=== PATIENT | female | born 1935 | race Caucasian/White ===

== ENCOUNTER 2021-03-04 12:11 | Inpatient (IN) ==
[2021-03-04] MEDS ORDERED: ONDANSETRON 4 MG/2 ML VIAL IV ONE (12:52)
--- NOTE | 2021-03-04 12:55 | Emergency Department Note ---
Fall HPI General Chief Complaint: Fall Stated Complaint: fall Time Seen by Provider: 03/04/21 12:49 Source: patient, EMS, RN notes reviewed and old records reviewed Mode of arrival: EMS Limitations: no limitations History of Present Illness HPI Narrative: Narrative: 85-year-old female describes a mechanical fall onto right hip prior to arrival initially was able to bear weight but now increasing increasing pain and inability to bear weight. She denies any loss of consciousness denies any headache denies any neck injury denies any chest pain denies any shortness of breath denies any abdominal pain denies loss of bowel or bladder control. MD Complaint: fall Onset (ago): hour(s) Fall From: standing Fall Witnessed: no Place Fall Occurred: other Loss of Consciousness: none Prolonged Down Time?: no Symptoms Prior to Fall: none Location of injury - extremities: Right: thigh (Hip) Severity: moderate Quality: aching Associated symptoms (after fall): Reports unable to walk; Denies headache, neck pain, numbness, weakness, chest pain, shortness of breath, abdominal pain, hematuria, lightheaded, vertigo and confusion Related Data Home Medications Medication Instructions Recorded Confirmed aspirin 81 mg PO DAILY 10/07/15 02/16/21 ergocalciferol (vitamin D2) 400 unit PO DAILY 10/07/15 02/16/21 omega-3 fatty acids-fish oil 1,000 mg PO DAILY 10/07/15 02/16/21 omeprazole 20 mg PO BIDAC 10/07/15 02/16/21 cyanocobalamin (vitamin B-12) 2,500 mg PO QDAY 11/12/18 02/01/21 melatonin 3 mg tablet 3 mg PO HS PRN 11/12/18 02/16/21 furosemide 40 mg tablet 20 mg PO QAM tab 11/05/20 02/16/21 magnesium sulfate 100 mg capsule 100 mg PO QDAY 02/01/21 02/16/21 Previous Rx's Medication Instructions Recorded albuterol sulfate 90 mcg/actuation 2 puff INHALATION Q6H PRN #18 g 09/12/19 aerosol inhaler atenolol 50 mg tablet 50 mg PO DAILY #90 tab 08/17/20 fexofenadine 180 mg tablet 180 mg PO Q24H #30 tab 09/14/20 pregabalin 50 mg capsule 50 mg PO QDAY #30 cap 10/27/20 gemfibrozil 600 mg tablet 600 mg PO BID #180 tab 11/08/20 levothyroxine 50 mcg tablet 50 mcg PO QDAY #90 tab 11/08/20 meclizine 12.5 mg tablet 12.5 mg PO BID #60 tab 11/30/20 meloxicam 7.5 mg tablet 7.5 mg PO QDAY #180 tab 12/07/20 clopidogrel 75 mg tablet 75 mg PO DAILY #30 tab 02/01/21 hydroxyzine HCl 25 mg tablet 25 mg PO QHS #30 tab 02/18/21 ferrous sulfate 325 mg (65 mg 325 mg PO BID #60 tab 02/23/21 iron) tablet potassium chloride 20 mEq 20 meq PO QDAY #90 tab 02/23/21 tablet,extended release tramadol 50 mg tablet See Rx Instructions .ROUTE 02/23/21 .COMPLEX #180 tab Allergies Allergy/AdvReac Type Severity Reaction Status Date / Time garlic AdvReac Intermediate Unknown Verified 03/04/21 12:17 fabric 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 [facility] Narrative Patient History Narrative: Narrative: Medical/Surgical/Family History All Active Problems (Updated 03/04/21 @ 13:49 by Donavan Dela Cruz MD) Closed hip fracture (Acute) Anemia due to stage 3b chronic kidney disease (Acute) Localized edema due to fluid overload (Chronic) Chronic kidney disease (CKD) stage G3b/A1, moderately decreased glomerular filtration rate (GFR) between 30-44 mL/min/1.73 square meter and albuminuria creatinine ratio less than 30 mg/g (Chronic) Renal insufficiency (Acute) Back pain (Chronic) DMII (diabetes mellitus, type 2) (Chronic) Hypertension, essential (Chronic) Malignant melanoma (Chronic) PVD (peripheral vascular disease) (Chronic) Renal calculi (Chronic 06/26/14) Tachycardia (Chronic) Urethral caruncle (Chronic) Urge incontinence (Chronic 06/11/14) Urinary frequency (Chronic 06/11/14) History of UTI (Chronic) Arthritis (Chronic) Muscle pain (Chronic) Hyperlipidemia (Chronic) Insomnia (Chronic) Joint pain (Chronic) History of tobacco use (Chronic) Acute gastritis without bleeding (Chronic) GERD (gastroesophageal reflux disease) (Chronic) Incomplete emptying of bladder (Chronic) Cardiac murmur (Chronic) Hypertriglyceridemia (Chronic) Abnormal abdominal ultrasound (Chronic) COPD (chronic obstructive pulmonary disease) (Chronic) Bipolar 1 disorder (Chronic) Carotid artery stenosis (Chronic) COPD exacerbation (Acute) BMI 27.0-27.9,adult (Chronic) Diabetic neuropathy (Chronic) Diabetic foot ulcer (Chronic) SOB (shortness of breath) (Chronic) Pneumonia (Chronic) Dysuria (Chronic) Cough (Chronic) Anemia, iron deficiency (Chronic) Dizziness (Chronic) UTI (urinary tract infection) (Chronic) Dysphagia (Chronic) Plantar fasciitis, bilateral (Chronic) Hypomagnesemia (Chronic) Hypokalemia (Chronic) Encounter for therapeutic drug level monitoring (Chronic) Indigestion (Chronic) Allergies (Chronic) Diabetic eye exam (Chronic 11/30/17) Diarrhea (Acute) Pedal edema (Acute) History of surgery (Chronic) Low back pain (Chronic) Bilateral ankle pain (Chronic) Diabetes (Chronic) Hypertension (Chronic) Hypothyroidism (Chronic) Hypomagnesemia (Acute) Hematoma (Acute) Mobility impaired (Acute) Allergies (Acute) Anemia (Acute) Vertigo (Acute) Medical History (Updated 03/04/21 @ 13:49 by Donavan Dela Cruz MD) Abnormal abdominal ultrasound Allergies Anemia, iron deficiency Anemia, iron deficiency Arthritis Back pain Bilateral ankle pain Bipolar 1 disorder BMI 27.0-27.9,adult Cardiac murmur Carotid artery stenosis Angiography by Dr. 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 Diabetic foot ulcer Diabetic neuropathy Dizziness Dizziness DMII (diabetes mellitus, type 2) Controlled w/ neurologic complications Dysphagia Dysphagia Dysuria (06/11/14) Dysuria Encounter for therapeutic drug level monitoring GERD (gastroesophageal reflux disease) Gross hematuria (06/11/14) Hematuria History of tobacco use History of UTI Hyperlipidemia Hypertension Hypertension, essential Hypertriglyceridemia Hypokalemia Hypokalemia Hypomagnesemia Hypomagnesemia Hypothyroidism Incomplete emptying of bladder Indigestion Insomnia Joint pain Low back pain Malignant melanoma Muscle pain Pelvic pain Plantar fasciitis, bilateral Plantar fasciitis, bilateral Pneumonia Pneumonia PVD (peripheral vascular disease) Renal calculi (06/26/14) Right middle lobe pneumonia SOB (shortness of breath) SOB (shortness of breath) Tachycardia Urethral caruncle Urge incontinence (06/11/14) Urinary frequency (06/11/14) UTI (urinary tract infection) UTI (urinary tract infection) Vertigo Surgical History H/O colonoscopy (~2010) Dr. 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 Dr Dowell- zack and toenail removed History of cholecystectomy (04/08/13) History of open reduction and internal fixation (ORIF) procedure (2014) Arm fracture History of surgery Caudal NAT #2 w/o sed Caudal NAT w/o sed Caudal NAT w/o sed Caudal NAT #1 w/o sed Hx of appendectomy (~1949) Family History Unknown Arthritis Sister , at age 58 Breast cancer Family/Other Cancer Uncles-2 Family/Other Cancer Aunt Mother , 71 years Diabetes Hypertension, essential Heart attack Father , 72 years Cancer Stomach cancer Brother H/O heart bypass surgery Social History Smoking Status: Former smoker Alcohol Intake Frequency: a few times a week Substance Use: does not use Exam Narrative Narrative: Narrative: General Limitations: no limitations General appearance: Present alert and in distress Head Head: Present atraumatic, normocephalic and normal inspection Eye Eye: Present normal appearance, PERRL and EOMI ENT ENT: Present normal exam, mucous membranes moist and normal external ear exam Neck Neck: Present normal inspection, full ROM and trachea midline; Absent tenderness, meningismus and lymphadenopathy Chest Chest: Present normal inspection; Absent tenderness Respiratory Respiratory: Present normal lung sounds bilaterally; Absent respiratory distress Cardiovascular Cardiovascular: Present regular rate and normal rhythm; Absent systolic murmur Adbominal Abdominal: Present soft and normal bowel sounds; Absent distention, tenderness, guarding, rebound and rigidity Extremities Extremities: Present tenderness, normal capillary refill and other (Right hip is tender to palpation tender with range of motion distal neurovascular); Absent full ROM, pedal edema and pretibial edema Back Back: Present normal inspection and full ROM; Absent CVA tenderness (R) and CVA tenderness (L) Neurological Neurological: Present alert and oriented X3 Psychiatric Psychiatric: Present normal affect and normal mood Skin Skin: Present warm (WNL); Absent rash Course Vital Signs Vital signs: Vital Signs Temperature 97.8 F 03/04/21 12:12 Pulse Rate 68 03/04/21 12:12 Respiratory Rate 18 03/04/21 12:12 Blood Pressure 168/75 03/04/21 12:12 Pulse Oximetry (%) 90 03/04/21 12:12 Temperature 97.8 F 03/04/21 12:12 Pulse Rate 75 03/04/21 13:54 Respiratory Rate 18 03/04/21 12:12 Blood Pressure 184/78 03/04/21 13:54 Pulse Oximetry (%) 95 03/04/21 13:54 MDM MDM Narrative Medical decision making narrative: Narrative: X-ray reveals a right femoral neck fracture I discussed patient Dr. Huber who graciously agreed to evaluate patient in the emergency department and requested hospitalist admit patient. Differential Diagnosis Differential Diagnosis: Fracture dislocation sprain strain contusion Medical Records Medical records reviewed: Yes I reviewed the patient's medical records. Radiology Data Radiology results reviewed: Yes I reviewed the patient's radiology results. Radiology results narrative: Right comminuted femoral neck fracture EKG Data EKG #1: EKG attestation: Yes I reviewed and interpreted this EKG. and Yes There are no EKG findings of acute coronary syndrome EKG shows normal: sinus rhythm Rate: normal (77) Rhythm: NSR [place]/QRS: normal Heart block present: None ST segment elevation in: None ST segment depression in: None Q waves: None T wave inversions noted in: None Hyperacute T waves: None QTc: normal QRS morphology: Present normal Interpretation: normal EKG Pulse Oximetry Data Pulse Ox %: 95 Interpretation: 95% on room air is within normal limits. Discharge Plan Patient/Caregiver Discharge Instructions Pt seen by SALES SERVICE PROFESSIONAL/PA only: No Clinical Impression: Closed hip fracture Qualifiers: Encounter type: initial encounter Laterality: right Qualified Code(s): S72.001A - Fracture of unspecified part of neck of right femur, initial encounter for closed fracture Patient Disposition: Home, Self-Care Follow up with: Winsome Cordova ARNP [Primary Care Provider] - Prescriptions: No Action albuterol sulfate [ProAir HFA] 90 mcg/actuation HFA aerosol inhaler 2 puff INHALATION Q6H PRN (Reason: Dyspnea) Qty: 18 RF: 0 atenolol 50 mg tablet 50 mg PO DAILY Qty: 90 RF: 2 pregabalin 50 mg capsule 50 mg PO QDAY Qty: 30 RF: 2 furosemide [Lasix] 40 mg tablet 20 mg PO QAM RF: 0 gemfibrozil 600 mg tablet 600 mg PO BID Qty: 180 RF: 1 levothyroxine 50 mcg tablet 50 mcg PO QDAY Qty: 90 RF: 1 meloxicam 7.5 mg tablet 7.5 mg PO QDAY Qty: 180 RF: 2 clopidogrel 75 mg tablet 75 mg PO DAILY Qty: 30 RF: 2 hydroxyzine HCl 25 mg tablet 25 mg PO QHS Qty: 30 RF: 1 ferrous sulfate 325 mg (65 mg iron) tablet 325 mg PO BID Qty: 60 RF: 3 potassium chloride 20 mEq tablet extended release 20 meq PO QDAY Qty: 90 RF: 2 tramadol 50 mg tablet See Rx Instructions .ROUTE .COMPLEX Qty: 180 RF: 0 cyanocobalamin (vitamin B-12) 2,500 mg PO QDAY RF: 0 magnesium sulfate 100 mg capsule 100 mg PO QDAY RF: 0 melatonin 3 mg tablet 3 mg PO HS PRN (Reason: Sleep) RF: 0 fexofenadine [Chitra Allergy] 180 mg tablet 180 mg PO Q24H Qty: 30 RF: 4 meclizine 12.5 mg tablet 12.5 mg PO BID Qty: 60 RF: 1 ergocalciferol (vitamin D2) 400 UNIT tablet 400 unit PO DAILY RF: 0 omeprazole 20 MG capsule 20 mg PO BIDAC RF: 0 aspirin 81 MG tablet,chewable 81 mg PO DAILY RF: 0 omega-3 fatty acids-fish oil 1 EACH capsule 1,000 mg PO DAILY RF: 0
[2021-03-04] MEDS: morphine 2 MG/ML VIAL IV PRN ×2 (13:05→14:21)
--- NOTE | 2021-03-04 14:12 | XRay Report ---
CLINICAL INFORMATION: FALL COMPARISON: 09/14/2020 FINDINGS: A comminuted fracture involving the entire right femoral neck appreciated this includes both the basicervical and subcapital region. The distal fragment is displaced one half shaft width anteriorly and mild angulation deformity. Mild degenerative change right hip. Moderate degenerative change left hip. Severe L5-S1 degenerative disc disease noted. IMPRESSION: Right hip fracture with mild angulation and impaction Interpreted and Authenticated by: Raymundo Rolle 03/04/21
--- NOTE | 2021-03-04 14:13 | XRay Report ---
CLINICAL INFORMATION: hip fracture COMPARISON: 02/03/2020 FINDINGS: Mild cardiomegaly is unchanged. Slight diffuse thoracic aortic ectasia stable. The remaining mediastinum and pulmonary vessels are normal. Lungs are clear. No effusions. IMPRESSION: Mild stable cardiomegaly and right thoracic aortic ectasia-both stable. No acute disease Interpreted and Authenticated by: Raymundo Rolle 03/04/21
[2021-03-04 15:13] LABS: Basophils # (Auto) 0.03 K/mcL (0.00-0.30); Basophils % (Auto) 0.3 % (0.0-2.0); Eosinophils # (Auto) 0.08 K/mcL (0.00-0.70); Eosinophils % (Auto) 0.8 % (0.0-7.0); Hematocrit 32.6 % (34.1-44.9); Hemoglobin 10.1 g/dL (11.2-15.7); Lymphocytes # (Auto) 0.58 K/mcL (1.50-4.80); Lymphocytes % (Auto) 5.9 % (15.5-49.0); Mean Cell Volume 104.5 fL (80.0-100.0); Mean Platelet Volume 12.6 fL (7.4-10.4); Monocytes # (Auto) 0.19 K/mcL (0.10-0.90); Monocytes % (Auto) 1.9 % (1.0-12.0); Neutrophils % (Auto) 91.1 % (38.0-78.0); Platelet Count 191 K/mcL (140-440); RBC 3.12 M/mcL (3.59-5.38); Red Cell Distribution Width 13.4 % (11.5-14.5); WBC 9.8 K/mcL (4.5-11.0)
[2021-03-04 15:39] LABS: ALT/SGPT 10 U/L (<40); AST/SGOT 16 U/L (<32); Albumin 3.3 gm/dL (3.2-5.2); Albumin/Globulin Ratio 1.1 (1.0-2.3); Alkaline Phosphatase 141 U/L (39-117); Bilirubin,Total 0.3 mg/dL (0.1-1.0); Blood Urea Nitrogen 24 mg/dL (8-23); Calcium 8.1 mg/dL (8.6-10.4); Carbon Dioxide 26 mmol/L (22-30); Chloride 109 mmol/L (96-108); Globulin 3.1 gm/dL (2.2-3.7); Glomerular Filtration Rate 37; Glucose 220 mg/dL (70-105)
--- NOTE | 2021-03-04 15:54 | Internal Med History&Physical ---
HPI History of Present Illness Patient information: Note initiated : 03/04/21 at 3:41 pm Service Date, if different from initiated Date: [] Patient: Corinne Crawford a 85 y/o F admitted on for fall. Chief Complaint: [] History of present illness: Ms. Crawford is a 85 year old F history of type 2 diabetes mellitus, essential hypertension, mixed dyslipidemia, COPD, presenting with fall with resultant right hip fractures. There was no prior similar episode. Today when she was waiting to be picked up by family, she lost her balance with her cane and fell with landing on her right body. She did not pass out, no loss of consciousness, no chest pain or palpitations, no shortness of breath. No confusion after the fall. EMS was called to send patients to our ED for further evaluations. Patient is currently committing of 9 of 10, sharp, constant pain localized in her right lateral hip. Hip x-ray showed right hip fracture with mild angulation and impaction. Constitutional Constitutional: Absent chills, excessive sweating, fatigue, fever(s) and weakness EENT Eyes: Absent blurry vision, change in vision, loss of vision and other visual disturbances Ears: Absent decreased hearing and tinnitus Nose, mouth and throat: Absent abnormal hearing, dry mouth, headache(s), nasal congestion and sore throat Cardiovascular Cardiovascular: Absent chest pain, chest pain at rest, edema, irregular heart rhythm and palpatations Respiratory Respiratory: Absent cough, dyspnea and wheezing Gastrointestinal Gastrointestinal: Absent abdominal pain, constipation, diarrhea, nausea and vomiting Musculoskeletal Musculoskeletal: Absent back pain, deformity, limited range of motion, muscle cramps, muscle weakness and numbness Additional comments: right lateral hip pain Integumentary Integumentary: Absent lesions, rash and wounds Neurological Neurological: Absent focal weakness, headache(s) and numbness Psychiatric Psychiatric: Absent anxiety, depression and hallucinations PFSH PFSH All Active Problems (Updated 03/04/21 @ 15:56 by Wilfrido Mims MD) Anemia, hyperchromic (Acute) Closed hip fracture (Acute) Anemia due to stage 3b chronic kidney disease (Acute) Localized edema due to fluid overload (Chronic) Chronic kidney disease (CKD) stage G3b/A1, moderately decreased glomerular filtration rate (GFR) between 30-44 mL/min/1.73 square meter and albuminuria creatinine ratio less than 30 mg/g (Chronic) Renal insufficiency (Acute) Back pain (Chronic) DMII (diabetes mellitus, type 2) (Chronic) Hypertension, essential (Chronic) Malignant melanoma (Chronic) PVD (peripheral vascular disease) (Chronic) Renal calculi (Chronic 06/26/14) Tachycardia (Chronic) Urethral caruncle (Chronic) Urge incontinence (Chronic 06/11/14) Urinary frequency (Chronic 06/11/14) History of UTI (Chronic) Arthritis (Chronic) Muscle pain (Chronic) Hyperlipidemia (Chronic) Insomnia (Chronic) Joint pain (Chronic) History of tobacco use (Chronic) Acute gastritis without bleeding (Chronic) GERD (gastroesophageal reflux disease) (Chronic) Incomplete emptying of bladder (Chronic) Cardiac murmur (Chronic) Hypertriglyceridemia (Chronic) Abnormal abdominal ultrasound (Chronic) COPD (chronic obstructive pulmonary disease) (Chronic) Bipolar 1 disorder (Chronic) Carotid artery stenosis (Chronic) COPD exacerbation (Acute) BMI 27.0-27.9,adult (Chronic) Diabetic neuropathy (Chronic) Diabetic foot ulcer (Chronic) SOB (shortness of breath) (Chronic) Pneumonia (Chronic) Dysuria (Chronic) Cough (Chronic) Anemia, iron deficiency (Chronic) Dizziness (Chronic) UTI (urinary tract infection) (Chronic) Dysphagia (Chronic) Plantar fasciitis, bilateral (Chronic) Hypomagnesemia (Chronic) Hypokalemia (Chronic) Encounter for therapeutic drug level monitoring (Chronic) Indigestion (Chronic) Allergies (Chronic) Diabetic eye exam (Chronic 11/30/17) Diarrhea (Acute) Pedal edema (Acute) History of surgery (Chronic) Low back pain (Chronic) Bilateral ankle pain (Chronic) Diabetes (Chronic) Hypertension (Chronic) Hypothyroidism (Chronic) Hypomagnesemia (Acute) Hematoma (Acute) Mobility impaired (Acute) Allergies (Acute) Anemia (Acute) Vertigo (Acute) Medical History (Updated 03/04/21 @ 15:56 by Wilfrido Mims MD) Abnormal abdominal ultrasound Allergies Anemia, iron deficiency Anemia, iron deficiency Arthritis Back pain Bilateral ankle pain Bipolar 1 disorder BMI 27.0-27.9,adult Cardiac murmur Carotid artery stenosis Angiography by Dr. Mckeon 2018 COPD (chronic obstructive pulmonary disease) COPD exacerbation Cough Cough Daytime sleepiness Diabetes Diabetic eye exam (11/30/17) Eye Case Therapist- no retinopathy Diabetic foot ulcer Diabetic neuropathy Dizziness Dizziness DMII (diabetes mellitus, type 2) Controlled w/ neurologic complications Dysphagia Dysphagia Dysuria (06/11/14) Dysuria Encounter for therapeutic drug level monitoring GERD (gastroesophageal reflux disease) Gross hematuria (06/11/14) Hematuria History of tobacco use History of UTI Hyperlipidemia Hypertension Hypertension, essential Hypertriglyceridemia Hypokalemia Hypokalemia Hypomagnesemia Hypomagnesemia Hypothyroidism Incomplete emptying of bladder Indigestion Insomnia Joint pain Low back pain Malignant melanoma Muscle pain Pelvic pain Plantar fasciitis, bilateral Plantar fasciitis, bilateral Pneumonia Pneumonia PVD (peripheral vascular disease) Renal calculi (06/26/14) Right middle lobe pneumonia SOB (shortness of breath) SOB (shortness of breath) Tachycardia Urethral caruncle Urge incontinence (06/11/14) Urinary frequency (06/11/14) UTI (urinary tract infection) UTI (urinary tract infection) Vertigo Surgical History H/O colonoscopy (~2010) Dr. 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 Manager Dr Dowell- zack and toenail removed History of cholecystectomy (04/08/13) History of open reduction and internal fixation (ORIF) procedure (2014) Arm fracture History of surgery Caudal NAT #2 w/o sed Caudal NAT w/o sed Caudal NAT w/o sed Caudal NAT #1 w/o sed Hx of appendectomy (~194) Family History Unknown Arthritis Sister , at age 58 Breast cancer Family/Other Cancer Uncles-2 Family/Other Cancer Aunt Mother , 71 years Diabetes Hypertension, essential Heart attack Father , 72 years Cancer Stomach cancer Brother H/O heart bypass surgery Social History marital status: other: Children-3 smoking status start date: 06/25/73 alcohol intake frequency: a few times a week substance use type: does not use MEDS/ALLERGIES Home Medications and Allergies Home Medications Medication Instructions Recorded Confirmed Type aspirin 81 mg PO DAILY 10/07/15 02/16/21 History ergocalciferol (vitamin D2) 400 unit PO DAILY 10/07/15 02/16/21 History omega-3 fatty acids-fish oil 1,000 mg PO DAILY 10/07/15 02/16/21 History omeprazole 20 mg PO BIDAC 10/07/15 02/16/21 History cyanocobalamin (vitamin B-12) 2,500 mg PO QDAY 11/12/18 02/01/21 History melatonin 3 mg tablet 3 mg PO HS PRN 11/12/18 02/16/21 History albuterol sulfate 90 mcg/actuation 2 puff INHALATION Q6H PRN #18 g 09/12/19 02/16/21 Rx aerosol inhaler atenolol 50 mg tablet 50 mg PO DAILY #90 tab 08/17/20 02/16/21 Rx fexofenadine 180 mg tablet 180 mg PO Q24H #30 tab 09/14/20 02/16/21 Rx pregabalin 50 mg capsule 50 mg PO QDAY #30 cap 10/27/20 02/16/21 Rx furosemide 40 mg tablet 20 mg PO QAM tab 11/05/20 02/16/21 History gemfibrozil 600 mg tablet 600 mg PO BID #180 tab 11/08/20 02/16/21 Rx levothyroxine 50 mcg tablet 50 mcg PO QDAY #90 tab 11/08/20 02/16/21 Rx meclizine 12.5 mg tablet 12.5 mg PO BID #60 tab 11/30/20 02/16/21 Rx meloxicam 7.5 mg tablet 7.5 mg PO QDAY #180 tab 12/07/20 02/16/21 Rx clopidogrel 75 mg tablet 75 mg PO DAILY #30 tab 02/01/21 02/16/21 Rx magnesium sulfate 100 mg capsule 100 mg PO QDAY 02/01/21 02/16/21 History hydroxyzine HCl 25 mg tablet 25 mg PO QHS #30 tab 02/18/21 Rx ferrous sulfate 325 mg (65 mg 325 mg PO BID #60 tab 02/23/21 Rx iron) tablet potassium chloride 20 mEq 20 meq PO QDAY #90 tab 02/23/21 Rx tablet,extended release tramadol 50 mg tablet See Rx Instructions .ROUTE 02/23/21 Rx .COMPLEX #180 tab Allergies Allergy/AdvReac Type Severity Reaction Status Date / Time garlic AdvReac Intermediate Unknown Verified 03/04/21 12:17 fabric softner AdvReac Intermediate Rash Uncoded 02/01/21 13:01 tide AdvReac Intermediate Rash Uncoded 02/01/21 13:01 EXAM Constitutional Vitals: Temp Pulse Resp BP Pulse Ox 36.6 C 73 18 192/77 95 03/04/21 12:12 03/04/21 15:02 03/04/21 12:12 03/04/21 15:02 03/04/21 15:02 General appearance: cooperative and no acute distress Head Head exam: Present atraumatic and normocephalic Eye Eye exam: Present EOMI and PERRL ENT ENT exam: Present mucous membranes moist, normal exam and normal external ear exam Neck Neck exam: Present normal inspection; Absent lymphadenopathy, tenderness and thyromegaly Respiratory Respiratory exam: Absent accessory muscle use, respiratory distress and wheezes Cardiovascular Cardiovascular exam: Present normal rate and rhythm; Absent JVD GI/Abdominal GI/Abdominal exam: Present normal bowel sounds and soft; Absent organomegaly and tenderness Extremities Exam Extremities exam: Present normal capillary refill and tenderness; Absent full ROM and normal inspection Additional comments: Right hip ROMs limited by pain. Right lateral hip tenderness to palpation Neurological Exam Neurological exam: Present alert, CN II-XII intact and oriented X3; Absent motor sensory deficit Psychiatric Psychiatric exam: Present normal affect and normal mood; Absent anxious and depressed Skin Skin exam: Present dry and intact DATA Data Completed and Pending Labs: Labs from last 24 hours 03/04/21 03/04/21 03/04/21 14:27 14:27 14:27 WBC RBC Hgb Hct MCV MCH MCHC RDW Plt Count MPV Neut % (Auto) Lymph % (Auto) Davis % (Auto) Eos % (Auto) Baso % (Auto) Lymph # (Auto) Davis # (Auto) Eos # (Auto) Baso # (Auto) Absolute Neutrophils PT Pending INR Pending Sodium 144 Potassium 3.7 Chloride 109 H Carbon Dioxide 26 Anion Gap 9.0 BUN 24 H Creatinine 1.3 H GFR Calculation 37 Glucose 220 H Calcium 8.1 L Total Bilirubin 0.3 AST 16 ALT 10 Alkaline Phosphatase 141 H Total Protein 6.4 Albumin 3.3 Globulin 3.1 Albumin/Globulin Ratio 1.1 Urine Color Pending Urine Appearance Pending Urine pH Pending Ur Specific Benson Pending Urine Protein Pending Urine Glucose (UA) Pending Urine Ketones Pending Urine Occult Blood Pending Urine Nitrate Pending Urine Bilirubin Pending Urine Urobilinogen Pending Ur Leukocyte Esterase Pending 03/04/21 14:27 WBC 9.8 RBC 3.12 L Hgb 10.1 L Hct 32.6 L MCV 104.5 H MCH 32.4 MCHC 31.0 RDW 13.4 Plt Count 191 MPV 12.6 H Neut % (Auto) 91.1 H Lymph % (Auto) 5.9 L Davis % (Auto) 1.9 Eos % (Auto) 0.8 Baso % (Auto) 0.3 Lymph # (Auto) 0.58 L Davis # (Auto) 0.19 Eos # (Auto) 0.08 Baso # (Auto) 0.03 Absolute Neutrophils 8.87 H PT INR Sodium Potassium Chloride Carbon Dioxide Anion Gap BUN Creatinine GFR Calculation Glucose Calcium Total Bilirubin AST ALT Alkaline Phosphatase Total Protein Albumin Globulin Albumin/Globulin Ratio Urine Color Urine Appearance Urine pH Ur Specific Benson Urine Protein Urine Glucose (UA) Urine Ketones Urine Occult Blood Urine Nitrate Urine Bilirubin Urine Urobilinogen Ur Leukocyte Esterase A/P Assessment and plan (1) Closed hip fracture: Status: Acute Qualifiers: Encounter type: initial encounter Laterality: right Qualified Code(s): S72.001A - Fracture of unspecified part of neck of right femur, initial encounter for closed fracture (2) DMII (diabetes mellitus, type 2): Status: Chronic Comment: Controlled w/ neurologic complications Qualifiers: Diabetes mellitus intermodal customer service insulin use: without care home use Diabetes mellitus complication status: with neurologic complications Diabetes mellitus complication detail: with polyneuropathy Qualified Code(s): E11.42 - Type 2 diabetes mellitus with diabetic polyneuropathy (3) Hypertension, essential: Status: Chronic (4) Hyperlipidemia: Status: Chronic Qualifiers: Hyperlipidemia type: unspecified Qualified Code(s): E78.5 - Hyperlipidemia, unspecified (5) COPD (chronic obstructive pulmonary disease): Status: Chronic Qualifiers: COPD type: chronic bronchitis Chronic bronchitis type: mucopurulent Qualified Code(s): J41.1 - Mucopurulent chronic bronchitis (6) Anemia, hyperchromic: Status: Acute Narrative A/P Narrative: Assessment and Plans: 1. Right hip fracture: Admit to inpatient med surg Dr. Huber consulted, for ORIF scheduled to be taking place on 03/05 Diabetic diet for now then NPO after midnight Tramadol PRN moderate pain Morphine IV PRN severe pain Bedrest Physical therapy Occupational therapy 2. Essential HTN: Continue home regimen of oral antihypertensives Hydralazine IV PRN SBP>=180mmHg and/or DBP>=110mmHg 3. Mixed dyslipidemia: Continue statin therapy 4. Anemia, hyperchromic: Continue to monitor cbc w/ auto diff in the morning to trend H/H after surgery 5. COPD: Continue bronchodilators, supplemental oxygen as needed titrate to achieve spo2>=88% 6. T2DM: HgA1c Hold any oral hypoglycemics Low dose SSI AC HS Accu Chek AC HS Hypoglycemia protocol Diabetic diet for now, then NPO after midnight GI ppx: continue oral PPI from home regimen DVT ppx: SCDs for now Code status: Full Prognosis: stable Disposition: inpatient med surg Time Spent With Patient Time: Total time spent is greater than 50% in coordination of care (as documented) at patient's floor/unit and/or counseling patient: Total time spent with greater than 50% in coordination of care (as documented) at patient's floor/unit and/or counseling patient:: 25 - 35 minutes
[2021-03-04 15:58] LABS: Appearance,Urine CLEAR (Clear); Bilirubin,Urine Negative (Negative); Color,Urine YELLOW; Culture Indicated,Urine No; Glucose,Urine (UA) Negative (Negative); Ketones,Urine Negative (Negative); Leukocyte Esterase,Urine Negative /ug (Negative); Mucus,Urine FEW /hpf; Nitrate,Urine Negative (Negative); Protein,Urine Negative (Negative); Specific Gravity,Urine 1.011 (1.000-1.035); Urine Blood Negative (Negative); Urine Hyaline Cast 1 /lph (0-2); Urine RBC < 1 /hpf (0-3); Urine Squamous Epithelial Cell < 1 /hpf (0-4); Urine WBC 3 /hpf (0-4); Urobilinogen,Urine Negative
[2021-03-04] MEDS ORDERED: DEXTROSE 31 GM ORAL.SUSP PO PRN (16:11)
[2021-03-04] MEDS ORDERED: ACETAMINOPHEN 325 MG TABLET PO PRN (16:11)
[2021-03-04] MEDS ORDERED: DEXTROSE 50% 50 ML VIAL IV PRN (16:11)
[2021-03-04] MEDS ORDERED: hydrALAZINE 20 MG/ML VIAL IV PRN (16:11)
[2021-03-04] MEDS ORDERED: ONDANSETRON 4 MG/2 ML VIAL IV PRN (16:11)
[2021-03-04] MEDS ORDERED: ZOLPIDEM 5 MG TABLET PO PRN (16:11)
[2021-03-04] MEDS ORDERED: ALBUTEROL SULFATE 200 PUFF INHALER INH PRN (16:19)
[2021-03-04] MEDS ORDERED: MELATONIN 3 MG TABLET PO PRN (16:19)
[2021-03-04] MEDS: 0.9 % SODIUM CHLORIDE 1,000 ML IV SCH (16:56)
[2021-03-04] MEDS: morphine 4 MG/ML VIAL IV PRN (17:00)
[2021-03-04] MEDS: GEMFIBROZIL 600 MG TABLET PO SCH (17:03)
[2021-03-04] MEDS: OMEPRAZOLE 20 MG CAPSULE PO SCH (17:03)
[2021-03-04] MEDS: INSULIN LISPRO 1 UNIT/0.01 ML UNIT SQ SCH ×2 (17:03→20:16)
[2021-03-04] MEDS: FERROUS SULFATE 325 MG TABLET PO SCH (17:03)
--- NOTE | 2021-03-04 17:21 | Orthopedic Consult Note ---
HPI Data of Consult Consult date: 03/04/21 Primary Care Provider: WENDI Steen Consult Narrative cc:: CC: Wilfrido Mims MD Patient was attempting to ambulate across the waiting room when she suffered a fall. She immediately could not weight-bear on her right hip. X-rays were taken which confirmed a right hip fracture at the femoral neck. Orthopedic consultation was sought. Constitutional Constitutional: Present other Additional comments: A 10 point review of systems was performed and all were found normal with the exception of those noted in the HPI. PFSH PFSH All Active Problems (Updated 03/04/21 @ 15:56 by Wilfrido Mims MD) Anemia, hyperchromic (Acute) Closed hip fracture (Acute) Anemia due to stage 3b chronic kidney disease (Acute) Localized edema due to fluid overload (Chronic) Chronic kidney disease (CKD) stage G3b/A1, moderately decreased glomerular filtration rate (GFR) between 30-44 mL/min/1.73 square meter and albuminuria creatinine ratio less than 30 mg/g (Chronic) Renal insufficiency (Acute) Back pain (Chronic) DMII (diabetes mellitus, type 2) (Chronic) Hypertension, essential (Chronic) Malignant melanoma (Chronic) PVD (peripheral vascular disease) (Chronic) Renal calculi (Chronic 06/26/14) Tachycardia (Chronic) Urethral caruncle (Chronic) Urge incontinence (Chronic 06/11/14) Urinary frequency (Chronic 06/11/14) History of UTI (Chronic) Arthritis (Chronic) Muscle pain (Chronic) Hyperlipidemia (Chronic) Insomnia (Chronic) Joint pain (Chronic) History of tobacco use (Chronic) Acute gastritis without bleeding (Chronic) GERD (gastroesophageal reflux disease) (Chronic) Incomplete emptying of bladder (Chronic) Cardiac murmur (Chronic) Hypertriglyceridemia (Chronic) Abnormal abdominal ultrasound (Chronic) COPD (chronic obstructive pulmonary disease) (Chronic) Bipolar 1 disorder (Chronic) Carotid artery stenosis (Chronic) COPD exacerbation (Acute) BMI 27.0-27.9,adult (Chronic) Diabetic neuropathy (Chronic) Diabetic foot ulcer (Chronic) SOB (shortness of breath) (Chronic) Pneumonia (Chronic) Dysuria (Chronic) Cough (Chronic) Anemia, iron deficiency (Chronic) Dizziness (Chronic) UTI (urinary tract infection) (Chronic) Dysphagia (Chronic) Plantar fasciitis, bilateral (Chronic) Hypomagnesemia (Chronic) Hypokalemia (Chronic) Encounter for therapeutic drug level monitoring (Chronic) Indigestion (Chronic) Allergies (Chronic) Diabetic eye exam (Chronic 11/30/17) Diarrhea (Acute) Pedal edema (Acute) History of surgery (Chronic) Low back pain (Chronic) Bilateral ankle pain (Chronic) Diabetes (Chronic) Hypertension (Chronic) Hypothyroidism (Chronic) Hypomagnesemia (Acute) Hematoma (Acute) Mobility impaired (Acute) Allergies (Acute) Anemia (Acute) Vertigo (Acute) Medical History (Updated 03/04/21 @ 15:56 by Wilfrido Mims MD) Abnormal abdominal ultrasound Allergies Anemia, iron deficiency Anemia, iron deficiency Arthritis Back pain Bilateral ankle pain Bipolar 1 disorder BMI 27.0-27.9,adult Cardiac murmur Carotid artery stenosis Angiography by Dr. 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 Diabetic foot ulcer Diabetic neuropathy Dizziness Dizziness DMII (diabetes mellitus, type 2) Controlled w/ neurologic complications Dysphagia Dysphagia Dysuria (06/11/14) Dysuria Encounter for therapeutic drug level monitoring GERD (gastroesophageal reflux disease) Gross hematuria (06/11/14) Hematuria History of tobacco use History of UTI Hyperlipidemia Hypertension Hypertension, essential Hypertriglyceridemia Hypokalemia Hypokalemia Hypomagnesemia Hypomagnesemia Hypothyroidism Incomplete emptying of bladder Indigestion Insomnia Joint pain Low back pain Malignant melanoma Muscle pain Pelvic pain Plantar fasciitis, bilateral Plantar fasciitis, bilateral Pneumonia Pneumonia PVD (peripheral vascular disease) Renal calculi (06/26/14) Right middle lobe pneumonia SOB (shortness of breath) SOB (shortness of breath) Tachycardia Urethral caruncle Urge incontinence (06/11/14) Urinary frequency (06/11/14) UTI (urinary tract infection) UTI (urinary tract infection) Vertigo Surgical History H/O colonoscopy (~2010) Dr. Jaquez H/O gastric bypass (~1979) History of back surgery (~1971) History of bunionectomy Allergy Nurse Dr Dowell- zack and toenail removed History of cholecystectomy (04/08/13) History of open reduction and internal fixation (ORIF) procedure (2014) Arm fracture History of surgery Caudal NAT #2 w/o sed Caudal NAT w/o sed Caudal NAT w/o sed Caudal NAT #1 w/o sed Hx of appendectomy (~1949) Family History Unknown Arthritis Sister , at age 58 Breast cancer Family/Other Cancer Uncles-2 Family/Other Cancer Aunt Mother , 71 years Diabetes Hypertension, essential Heart attack Father , 72 years Cancer Stomach cancer Brother H/O heart bypass surgery Social History marital status: other: Children-3 smoking status start date: 06/25/73 alcohol intake frequency: a few times a week substance use type: does not use MEDS/ALLERGIES Home Medications and Allergies Home Medications Medication Instructions Recorded Confirmed Type aspirin 81 mg PO DAILY 10/07/15 03/04/21 History ergocalciferol (vitamin D2) 400 unit PO DAILY 10/07/15 03/04/21 History omega-3 fatty acids-fish oil 1,000 mg PO DAILY 10/07/15 03/04/21 History omeprazole 20 mg PO BIDAC 10/07/15 03/04/21 History cyanocobalamin (vitamin B-12) 2,500 mg PO QDAY 11/12/18 03/04/21 History melatonin 3 mg tablet 3 mg PO HS PRN 11/12/18 03/04/21 History albuterol sulfate 90 mcg/actuation 2 puff INHALATION Q6H PRN #18 g 09/12/19 03/04/21 Rx aerosol inhaler atenolol 50 mg tablet 50 mg PO DAILY #90 tab 08/17/20 03/04/21 Rx fexofenadine 180 mg tablet 180 mg PO Q24H #30 tab 09/14/20 03/04/21 Rx pregabalin 50 mg capsule 50 mg PO QDAY #30 cap 10/27/20 03/04/21 Rx furosemide 40 mg tablet 20 mg PO QAM tab 11/05/20 03/04/21 History gemfibrozil 600 mg tablet 600 mg PO BID #180 tab 11/08/20 03/04/21 Rx levothyroxine 50 mcg tablet 50 mcg PO QDAY #90 tab 11/08/20 03/04/21 Rx meclizine 12.5 mg tablet 12.5 mg PO BID #60 tab 11/30/20 03/04/21 Rx meloxicam 7.5 mg tablet 7.5 mg PO QDAY #180 tab 12/07/20 03/04/21 Rx clopidogrel 75 mg tablet 75 mg PO DAILY #30 tab 02/01/21 03/04/21 Rx magnesium sulfate 100 mg capsule 100 mg PO QDAY 02/01/21 03/04/21 History hydroxyzine HCl 25 mg tablet 25 mg PO QHS #30 tab 02/18/21 03/04/21 Rx ferrous sulfate 325 mg (65 mg 325 mg PO BID #60 tab 02/23/21 03/04/21 Rx iron) tablet potassium chloride 20 mEq 20 meq PO QDAY #90 tab 02/23/21 03/04/21 Rx tablet,extended release tramadol 50 mg tablet See Rx Instructions .ROUTE 02/23/21 03/04/21 Rx .COMPLEX #180 tab Allergies Allergy/AdvReac Type Severity Reaction Status Date / Time garlic AdvReac Intermediate Unknown Verified 03/04/21 12:17 fabric softner AdvReac Intermediate Rash Uncoded 02/01/21 13:01 tide AdvReac Intermediate Rash Uncoded 02/01/21 13:01 Physical Examination Narrative Narrative: Narrative: Patient was seen in bed and found to be alert and oriented. She was cognizant of her condition. The right femur was obviously shortened and externally rotated. She was neurovascularly intact in her foot. She had pain with any attempted movement of the hip. Physical exam was consistent with right hip femoral neck fracture. A/P Time Spent With Patient Time: Total time spent is greater than 50% in coordination of care (as documented) at patient's floor/unit and/or counseling patient: Assessment: Right hip femoral neck fracture. Plan: Right hip bipolar hemiarthroplasty. Risks versus benefits of surgery were discussed in detail with the patient. She understood these risks and wished to proceed with surgery. Goal of surgery includes a stable implant to be able to ambulate as soon as possible and therefore avoid the risk associated with prolonged bedrest.
[2021-03-04 17:51] LABS: INR 1.7 (0.9-1.1); Prothrombin Time 20.3 sec (11.9-14.5)
[2021-03-04 18:14] LABS: Hemoglobin A1C 4.9 % Hgb (4.0-6.0)
[2021-03-04] MEDS ORDERED: SCOPOLAMINE 1 PATCH PATCH TOPICAL PRN (18:19)
[2021-03-04] MEDS ORDERED: IPRATROPIUM/ALBUTEROL 3 ML AMPUL.NEB NEB PRN (18:19)
[2021-03-04] MEDS: hydrOXYzine 25 MG TABLET PO SCH (19:39)
[2021-03-04] MEDS: SENNOSIDES 1 TABLET PO SCH (19:39)
[2021-03-04] MEDS: DOCUSATE SODIUM 100 MG CAPSULE PO SCH (19:39)
[2021-03-04] MEDS: traMADol 50 MG TABLET PO SCH (19:40)
[2021-03-04] MEDS: 0.9 % SODIUM CHLORIDE 10 ML SYRINGE IV SCH (20:12)
[2021-03-05] MEDS: morphine 4 MG/ML VIAL IV PRN (02:15)
[2021-03-05] MEDS: 0.9 % SODIUM CHLORIDE 1,000 ML IV SCH ×2 (02:50→17:19)
[2021-03-05] MEDS: traMADol 50 MG TABLET PO PRN (03:48)
[2021-03-05] MEDS ORDERED: traMADol 50 MG TABLET PO ONE (03:52)
[2021-03-05] MEDS: 0.9 % SODIUM CHLORIDE 10 ML SYRINGE IV SCH ×3 (06:36→20:56)
[2021-03-05 06:52] LABS: Basophils # (Auto) 0.04 K/mcL (0.00-0.30); Basophils % (Auto) 0.4 % (0.0-2.0); Eosinophils # (Auto) 0.29 K/mcL (0.00-0.70); Eosinophils % (Auto) 2.8 % (0.0-7.0); Hematocrit 32.2 % (34.1-44.9); Hemoglobin 9.9 g/dL (11.2-15.7); Lymphocytes # (Auto) 0.64 K/mcL (1.50-4.80); Lymphocytes % (Auto) 6.1 % (15.5-49.0); Mean Cell Volume 103.9 fL (80.0-100.0); Mean Corpuscular HGB Conc 30.7 g/dL (31.0-36.0); Mean Platelet Volume 12.7 fL (7.4-10.4); Monocytes # (Auto) 0.26 K/mcL (0.10-0.90); Monocytes % (Auto) 2.5 % (1.0-12.0); Neutrophils % (Auto) 88.2 % (38.0-78.0); Platelet Count 180 K/mcL (140-440); Red Cell Distribution Width 13.2 % (11.5-14.5); WBC 10.5 K/mcL (4.5-11.0)
[2021-03-05] MEDS: OMEPRAZOLE 20 MG CAPSULE PO SCH ×2 (07:36→17:26)
[2021-03-05] MEDS: LEVOTHYROXINE 50 MCG TABLET PO SCH (07:36)
[2021-03-05] MEDS: INSULIN LISPRO 1 UNIT/0.01 ML UNIT SQ SCH ×4 (07:40→20:54)
[2021-03-05] MEDS: GEMFIBROZIL 600 MG TABLET PO SCH ×2 (07:43→17:25)
[2021-03-05] MEDS: traMADol 50 MG TABLET PO SCH ×2 (08:23→20:55)
[2021-03-05] MEDS: ATENOLOL 50 MG TABLET PO SCH (08:23)
[2021-03-05] MEDS ORDERED: ceFAZolin 2 GM in DEXTROSE 5% IN WATER 50 ML IV SCH ×2 (09:30→09:45)
[2021-03-05] MEDS ORDERED: LIDOCAINE HCL/PF 100 MG/5 ML SYRINGE IV ONE (09:31)
[2021-03-05] MEDS ORDERED: PHENYLephrine 1 MG/10 ML SYRINGE (ANEST) ONE (09:31)
[2021-03-05] MEDS ORDERED: GLYCOPYRROLATE 0.2 MG/ML VIAL IV ONE (09:31)
[2021-03-05] MEDS ORDERED: MAGNESIUM HYDROXIDE 30 ML ORAL.SUSP PO PRN (09:31)
[2021-03-05] MEDS ORDERED: BENZOCAINE/MENTHOL 1 LOZENGE PO PRN (09:31)
[2021-03-05] MEDS ORDERED: fentaNYL 100 MCG/2 ML VIAL IV ONE (09:31)
[2021-03-05] MEDS ORDERED: ONDANSETRON 4 MG/2 ML VIAL ONE (09:31)
[2021-03-05] MEDS ORDERED: DEXAMETHASONE 10 MG/ML VIAL ONE (09:31)
[2021-03-05] MEDS ORDERED: POLYETHYLENE GLYCOL 3350 17 GM PACKET PO PRN (09:31)
[2021-03-05] MEDS ORDERED: PROPOFOL 200 MG/20 ML VIAL IV ONE (09:31)
[2021-03-05] MEDS ORDERED: KETAMINE 50 MG/ML Syringe (ANEST) IV ONE (09:31)
[2021-03-05] MEDS ORDERED: EPINEPHrine 1 MG/10 ML (1:10,000) SYRINGE IV ONE (09:31)
[2021-03-05] MEDS ORDERED: ATROPINE SULFATE 0.4 MG/ML VIAL ONE (09:31)
[2021-03-05] MEDS ORDERED: MIDAZOLAM 2 MG/2 ML VIAL ONE (09:31)
[2021-03-05] MEDS ORDERED: METHOCARBAMOL 1,000 MG/10 ML VIAL IV PRN ×2 (09:36→10:27)
[2021-03-05] MEDS ORDERED: KETOROLAC 15 MG/ML VIAL IV PRN (09:36)
[2021-03-05] MEDS ORDERED: NALOXONE HCL 0.4 MG/ML VIAL IV PRN (09:36)
[2021-03-05] MEDS ORDERED: ATROPINE SULFATE 0.4 MG/ML VIAL IV PRN (10:27)
[2021-03-05] MEDS ORDERED: IPRATROPIUM/ALBUTEROL 3 ML AMPUL.NEB NEB PRN (10:27)
[2021-03-05] MEDS ORDERED: ACETAMINOPHEN 1,000 MG/100 ML BAG IV ONE (10:27)
[2021-03-05] MEDS ORDERED: fentaNYL 100 MCG/2 ML VIAL IV PRN (10:27)
[2021-03-05] MEDS ORDERED: ePHEDrine 50 MG/ML AMPUL IV PRN (10:27)
[2021-03-05] MEDS ORDERED: LACTATED RINGERS 1,000 ML IV SCH (10:30)
--- NOTE | 2021-03-05 10:55 | Brief Operative Note ---
Brief Operative Note Date of procedure: 03/05/21 Pre-op diagnosis: Right hip femoral neck fracture Post-op diagnosis: same Procedure: Right hip austen arthroplasty Grafts/Implants: Yes Anesthesia: GETA Findings: as above dx Complications: none Surgeon: Henry Huber Ink Printer: Wilder oFfana Estimated blood loss (cc): 250 Specimens Removed/Pathology: none sent Condition: stable Disposition: PACU
--- NOTE | 2021-03-05 10:55 | Discharge Plan ---
Discharge Plan Patient/Caregiver Discharge Instructions Activity: increase activity as tolerated Diet: Consistent Carbohydrate Instructions: Hydrocodone/Acetaminophen (By mouth), Aspirin (By mouth), Hip Fracture (GEN), Anterior Hip Replacement (DC) Activity Restrictions/Additional Instructions: Resume carbohydrate consistent diet. Increase activity as tolerated. Continue all medications as directed. Do the exercises at home that physical therapy gave you. Weight bearing as tolerated on operative side. Activity as tolerated. Use your ice packs in 20 minute increments as tolerated throughout the day. This and elevation will help with pain and swelling. Consider pre-medicating with pain medication 45 minutes prior to physical therapy. You have a Silver dressing on your right hip covering kateirna, leave in place for 7 days then remove. This dressing is waterproof and can get wet. You may resume showering with dressing in place. No baths, pools, or hot tubs. To avoid constipation while taking any narcotic pain medication, take an over the counter stool softener/laxative. You will be taking Aspirin 81 mg twice daily for one month to prevent blood clots. If you have any questions or concerns call your orthopedic surgeon before going to the emergency room. [facility] has an on- call physician 24 hours per day/7 days per week and can be reached at [phone]. Call for fevers above 100.5 or pain not controlled by medication. This discharge packet is provided to you to help keep you informed about your care. We want to ensure you get everything you need when you go home. You will also be receiving a call from us in a few days to follow up with you and see how you are doing since your discharge. This gives us a chance to listen to any concerns you maybe experiencing since you were discharged or any additional needs you may have, as well as providing us feedback on your care experience. We strive to always provide excellent care and thank you for your feedback and for choosing [facility]. Prescriptions: New hydrocodone-acetaminophen 7.5-325 mg tablet 1 tab PO Q6H PRN (Reason: pain) Qty: 60 RF: 0 aspirin 81 mg capsule 81 mg PO BID Qty: 60 RF: 0 Continued albuterol sulfate [ProAir HFA] 90 mcg/actuation HFA aerosol inhaler 2 puff INHALATION Q6H PRN (Reason: Dyspnea) Qty: 18 RF: 0 atenolol 50 mg tablet 50 mg PO DAILY Qty: 90 RF: 2 pregabalin 50 mg capsule 50 mg PO QDAY Qty: 30 RF: 2 furosemide [Lasix] 40 mg tablet 20 mg PO QAM RF: 0 gemfibrozil 600 mg tablet 600 mg PO BID Qty: 180 RF: 1 levothyroxine 50 mcg tablet 50 mcg PO QDAY Qty: 90 RF: 1 meloxicam 7.5 mg tablet 7.5 mg PO QDAY Qty: 180 RF: 2 clopidogrel 75 mg tablet 75 mg PO DAILY Qty: 30 RF: 2 hydroxyzine HCl 25 mg tablet 25 mg PO QHS Qty: 30 RF: 1 ferrous sulfate 325 mg (65 mg iron) tablet 325 mg PO BID Qty: 60 RF: 3 potassium chloride 20 mEq tablet extended release 20 meq PO QDAY Qty: 90 RF: 2 cyanocobalamin (vitamin B-12) 2,500 mg PO QDAY RF: 0 magnesium sulfate 100 mg capsule 100 mg PO QDAY RF: 0 melatonin 3 mg tablet 3 mg PO HS PRN (Reason: Sleep) RF: 0 fexofenadine [Chitra Allergy] 180 mg tablet 180 mg PO Q24H Qty: 30 RF: 4 meclizine 12.5 mg tablet 12.5 mg PO BID Qty: 60 RF: 1 ergocalciferol (vitamin D2) 400 UNIT tablet 400 unit PO DAILY RF: 0 omeprazole 20 MG capsule 20 mg PO BIDAC RF: 0 omega-3 fatty acids-fish oil 1 EACH capsule 1,000 mg PO DAILY RF: 0 tramadol 50 mg tablet See Rx Instructions .ROUTE .COMPLEX Qty: 10 RF: 0 Discontinued aspirin 81 MG tablet,chewable 81 mg PO DAILY RF: 0 Other Ambulatory Orders: OT Discharge Order (Routine) Location: None Selected Ordered By: Shivam Segura Physical Therapy at Discharge - General (Routine) Location: None Selected Ordered By: Shivam Segura Follow Up Plan Follow up with: Henry Huber MD [Physician] - 03/16/21 9:20 am (Check in at 9:20 for your appointment.) Winsome Cordova ARNP [Primary Care Provider] - Patient Disposition: Xfer SNF Rehab Potential: Good I certify that the patient requires SNF services: Yes Overall status at discharge: patient is progressing back to baseline Discharge Orders: Discharge Order (Routine); Ordered 03/08/21 Ordered By: Henry Huber
[2021-03-05] MEDS: LACTATED RINGERS 1,000 ML IV SCH (12:13)
[2021-03-05] MEDS: CYANOCOBALAMIN (VITAMIN B-12) 2,500 MCG TAB.SUBL SL SCH (13:34)
[2021-03-05] MEDS: MAGNESIUM OXIDE 400 MG TABLET PO SCH (13:34)
[2021-03-05] MEDS: FUROSEMIDE 40 MG TABLET PO SCH (13:36)
[2021-03-05] MEDS: VITAMIN D3 400 UNIT TABLET PO SCH (13:39)
[2021-03-05] MEDS: PREGABALIN 25 MG CAPSULE PO SCH (13:39)
[2021-03-05] MEDS: FERROUS SULFATE 325 MG TABLET PO SCH ×2 (13:42→17:26)
[2021-03-05] MEDS: FEXOFENADINE 180 MG TABLET PO SCH (13:44)
[2021-03-05] MEDS: MELOXICAM 7.5 MG TABLET PO SCH (13:45)
[2021-03-05] MEDS: POTASSIUM CHLORIDE 20 MEQ TABLET PO SCH (13:51)
[2021-03-05] MEDS: OMEGA PO SCH (14:02)
[2021-03-05] MEDS: DOCUSATE SODIUM 100 MG CAPSULE PO SCH ×2 (14:02→20:55)
[2021-03-05] MEDS: [UNRECOGNIZED DRUG - OTHER] PO SCH (14:02)
--- NOTE | 2021-03-05 14:25 | XRay Report ---
HISTORY: Postop right hip replacement for hip fracture FINDINGS: There is a well-positioned right hip prosthesis. There is no new fracture. 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 Multiple calcified injection granulomata are present in both buttocks. IMPRESSION: Well-positioned right hip prosthesis Interpreted and Authenticated by: Sandeep Mclaughlin 03/05/21
--- NOTE | 2021-03-05 14:37 | Internal Med Progress Note ---
SUBJECTIVE Subjective Patient information: Note initiated : 03/05/21 at 2:31 pm Service Date, if different from initiated Date: [] Patient: Corinne Crawford a 85 y/o F admitted on 03/04/21 for fall. Chief Complaint: [right hip femoral neck fracture] Interval history: History of present illness: Ms. Crawford is a 85 year old F history of type 2 diabetes mellitus, essential hypertension, mixed dyslipidemia, COPD, presenting with fall with resultant right hip fractures. There was no prior similar episode. Today when she was waiting to be picked up by family, she lost her balance with her cane and fell with landing on her right body. She did not pass out, no loss of consciousness, no chest pain or palpitations, no shortness of breath. No confusion after the fall. EMS was called to send patients to our ED for further evaluations. Patient is currently committing of 9 of 10, sharp, constant pain localized in her right lateral hip. Hip x-ray showed right hip fracture with mild angulation and impaction. 03/05: s/p right hip hemiarthroplasty by Dr. Huber on 03/04. Denies right hip pain. Denies SOB. Denies fever or chills. Denies nausea or vomiting. Has not have bowel movement yet. Constitutional Vitals: Vital Signs Temp Pulse Resp BP Pulse Ox 36.7 C 80 18 134/60 100 03/05/21 14:03 03/05/21 14:03 03/05/21 11:35 03/05/21 14:03 03/05/21 14:03 Period Temp Pulse Resp BP Sys/Mora Pulse Ox Last 24 Hr 36.1 C-37.0 C 71-98 6-18 120-194/43-89 88-100 Intake and Output 03/05/21 03/05/21 03/05/21 05:59 13:59 21:59 Intake Total 2090 1137 Output Total 400 350 Balance 1690 787 Intake & Output: Intake & Output 03/05/21 03/05/21 03/05/21 05:59 13:59 21:59 Intake Total 2090 1137 Output Total 400 350 Balance 1690 787 Intake: IV 990 1137 Sodium Chloride 0.9% 1,000 ml @ 990 987 100 mls/hr IV .Q10H PATY Rx#: [id number] Ancef 2 gm In Dextrose 5% in 50 Water 50 ml @ 100 mls/hr IV PREOP PATY Rx#:[id number] Oral 1100 Output: Urine Catheter Amount 400 350 Other: Urine Appearance Clear Clear Uretheral (Bower) Clear Urine Color Pale Bright Yellow Uretheral (Bower) Bright Yellow General appearance: cooperative and no acute distress Head Head exam: Present atraumatic and normocephalic Eye Eye exam: Present EOMI and PERRL ENT ENT exam: Present mucous membranes moist, normal exam and normal external ear exam Additional comments: Nasal cannula in place Neck Neck exam: Present normal inspection; Absent lymphadenopathy, tenderness and thyromegaly Respiratory Respiratory exam: Absent accessory muscle use, respiratory distress and wheezes Cardiovascular Cardiovascular exam: Present normal rate and rhythm; Absent JVD GI/Abdominal GI/Abdominal exam: Present normal bowel sounds and soft; Absent organomegaly and tenderness Extremities Exam Extremities exam: Present normal capillary refill and tenderness; Absent full ROM and normal inspection Additional comments: Right lateral hip covered with surgical dressing, tenderness to palpation, and ROMs limited by pain Neurological Exam Neurological exam: Present alert, CN II-XII intact and oriented X3; Absent motor sensory deficit Psychiatric Psychiatric exam: Present normal affect and normal mood; Absent anxious and depressed Skin Skin exam: Present dry and intact OBJ DATA Labs CBC & Chem 7: 03/05/21 05:37 03/04/21 14:27 Labs: Abnormal Lab Results 03/05/21 03/04/21 03/04/21 05:37 14:27 14:27 RBC 3.10 L Hgb 9.9 L Hct 32.2 L MCV 103.9 H MCHC 30.7 L MPV 12.7 H Neut % (Auto) 88.2 H Lymph % (Auto) 6.1 L Lymph # (Auto) 0.64 L Absolute Neutrophils 9.31 H PT 20.3 H INR 1.7 H Chloride BUN Creatinine Glucose Calcium Alkaline Phosphatase Urine Mucus Few A 03/04/21 03/04/21 14:27 14:27 RBC 3.12 L Hgb 10.1 L Hct 32.6 L MCV 104.5 H MCHC MPV 12.6 H Neut % (Auto) 91.1 H Lymph % (Auto) 5.9 L Lymph # (Auto) 0.58 L Absolute Neutrophils 8.87 H PT INR Chloride 109 H BUN 24 H Creatinine 1.3 H Glucose 220 H Calcium 8.1 L Alkaline Phosphatase 141 H Urine Mucus Meds: Medications Acetaminophen (Acetaminophen 325 Mg Tablet) 650 mg PO Q6HP PRN; Protocol PRN Reason: Per Pain Protocol/Fever > 101 Hydrocodone Bitart/Acetaminophen (Hydrocodone/Apap 7.5/325mg Tablet) 0 tab PO Q4HP PRN; Protocol PRN Reason: Per Pain Protocol Albuterol Sulfate (Albuterol Sulfate 200 Puff Inhaler) 2 puff INH Q6H PRN PRN Reason: Dyspnea Aspirin (Aspirin 81 Mg Tab.Chew) 81 mg PO DAILY [facility] Atenolol (Atenolol 50 Mg Tablet) 50 mg PO DAILY [facility] Last Admin: 03/05/21 08:23 Dose: 50 mg Documented by: Cefazolin Sodium (Cefazolin 1 Gm Vial) 2 gm IV Q8H [facility] Stop: 03/06/21 02:01 Clopidogrel Bisulfate (Clopidogrel 75 Mg Tablet) 75 mg PO DAILY [facility] Cyanocobalamin (Cyanocobalamin (Vitamin B-12) 2,500 Mcg Tab.Subl) 2,500 mcg SL QDAY [facility] Last Admin: 03/05/21 13:34 Dose: 2,500 mcg Documented by: Dextrose (Dextrose 50% 50 Ml Vial) 0 ml IV UD PRN PRN Reason: Hypoglycemia Diagnostic Test (Pha) (Accu-Chek 1 Each Strip) 1 each FS ACHS [facility] Last Admin: 03/05/21 12:13 Dose: 1 each Documented by: Docusate Sodium (Docusate Sodium 100 Mg Capsule) 100 mg PO BID [facility] Last Admin: 03/05/21 14:02 Dose: Not Given Documented by: Enoxaparin Sodium (Enoxaparin 30 Mg/0.3 Ml Syringe) 30 mg SQ BID [facility] Ferrous Sulfate (Ferrous Sulfate 325 Mg Tablet) 325 mg PO BID@1200,1730 [facility] Last Admin: 03/05/21 13:42 Dose: 325 mg Documented by: Fexofenadine HCl (Fexofenadine 180 Mg Tablet) 180 mg PO Q24H [facility] Last Admin: 03/05/21 13:44 Dose: 180 mg Documented by: Furosemide (Furosemide 40 Mg Tablet) 20 mg PO QAM [facility] Last Admin: 03/05/21 13:36 Dose: 20 mg Documented by: Gemfibrozil (Gemfibrozil 600 Mg Tablet) 600 mg PO BIDAC [facility] Last Admin: 03/05/21 07:43 Dose: Not Given Documented by: Glucose (Dextrose 31 Gm Oral.Susp) 15 gm PO PRN PRN PRN Reason: Hypoglycemia Hydralazine HCl (Hydralazine 20 Mg/Ml Vial) 10 mg IV Q4-6HP PRN PRN Reason: Hypertension Hydroxyzine HCl (Hydroxyzine 25 Mg Tablet) 25 mg PO QHS [facility] Last Admin: 03/04/21 19:39 Dose: 25 mg Documented by: Sodium Chloride (Sodium Chloride 0.9%) 1,000 mls @ 100 mls/hr IV .Q10H [facility] Last Infusion: 03/05/21 12:42 Dose: 0 mls/hr Documented by: Lactated Ringer's (Lactated Ringers) 1,000 mls @ 75 mls/hr IV .[id number] [facility] Last Admin: 03/05/21 12:13 Dose: 75 mls/hr Documented by: Insulin Human Lispro (Insulin Lispro 1 Unit/0.01 Ml Unit) 0 unit SQ ACHS [facility]; Protocol Last Admin: 03/05/21 12:41 Dose: Not Given Documented by: Ketorolac Tromethamine (Ketorolac 15 Mg/Ml Vial) 15 mg IV Q6HP PRN; Protocol PRN Reason: Per Pain Protocol Stop: 03/07/21 09:37 Levothyroxine Sodium (Levothyroxine 50 Mcg Tablet) 50 mcg PO QAMAC [facility] Last Admin: 03/05/21 07:36 Dose: 50 mcg Documented by: Magnesium Hydroxide (Magnesium Hydroxide 30 Ml Oral.Susp) 30 ml PO BIDP PRN PRN Reason: Constipation Magnesium Oxide (Magnesium Oxide 400 Mg Tablet) 200 mg PO QDAY [facility] Last Admin: 03/05/21 13:34 Dose: 200 mg Documented by: Melatonin (Melatonin 3 Mg Tablet) 3 mg PO HSP PRN PRN Reason: Sleep Meloxicam (Meloxicam 7.5 Mg Tablet) 7.5 mg PO QDAY [facility]; Protocol Last Admin: 03/05/21 13:45 Dose: Not Given Documented by: Methocarbamol (Methocarbamol 1,000 Mg/10 Ml Vial) 750 mg IV Q6HP PRN PRN Reason: Muscle Spasm Morphine Sulfate (Morphine 4 Mg/Ml Vial) 4 mg IV Q4HP PRN; Protocol PRN Reason: Per Pain Protocol Last Admin: 03/05/21 02:15 Dose: 4 mg Documented by: Naloxone HCl (Naloxone Hcl 0.4 Mg/Ml Vial) 0.1 mg IV Q2MIN PRN PRN Reason: Opiate Reversal Non-Formulary Medication ([place]-3 Fatty Acids-Fish Oil) 1,000 mg PO DAILY [facility] Last Admin: 03/05/21 14:02 Dose: Not Given Documented by: Omeprazole (Omeprazole 20 Mg Capsule) 20 mg PO BIDAC [facility] Last Admin: 03/05/21 07:36 Dose: 20 mg Documented by: Ondansetron HCl (Ondansetron 4 Mg/2 Ml Vial) 4 mg IV Q6HP PRN PRN Reason: Nausea And Vomiting Polyethylene Glycol (Polyethylene Glycol 3350 17 Gm Packet) 17 gm PO DAILYP PRN PRN Reason: Constipation Potassium Chloride (Potassium Chloride 20 Meq Tablet) [facility] Last Admin: 03/05/21 13:51 Dose: 20 meq Documented by: Pregabalin (Pregabalin 25 Mg Capsule) 50 mg PO QDAY [facility] Last Admin: 03/05/21 13:39 Dose: 50 mg Documented by: Scopolamine (Scopolamine 1 Patch Patch) 1 patch TOPICAL PREOP PRN PRN Reason: Nausea And Vomiting Senna (Sennosides 1 Tablet) 2 tab PO HS [facility] Last Admin: 03/04/21 19:39 Dose: 2 tab Documented by: Sodium Chloride (0.9 % Sodium Chloride 10 Ml Syringe) 10 ml IV Q8 [facility] Last Admin: 03/05/21 14:07 Dose: 10 ml Documented by: Throat Lozenges (Benzocaine/Menthol 1 Lozenge) 1 lozenge PO PRN PRN PRN Reason: Sore Throat Tramadol HCl (Tramadol 50 Mg Tablet) 50 mg PO BID [facility]; Protocol Last Admin: 03/05/21 08:23 Dose: 50 mg Documented by: Tramadol HCl (Tramadol 50 Mg Tablet) 50 mg PO Q4HP PRN; Protocol PRN Reason: Pain Last Admin: 03/05/21 03:48 Dose: 50 mg Documented by: Vitamin D (Vitamin D3 400 Unit Tablet) 400 unit PO DAILY [facility] Last Admin: 03/05/21 13:39 Dose: 400 unit Documented by: Zolpidem Tartrate (Zolpidem 5 Mg Tablet) 5 mg PO HSP PRN PRN Reason: Insomnia A/P Assessment and plan (1) Closed hip fracture: Status: Acute Qualifiers: Encounter type: initial encounter Laterality: right Qualified Code(s): S72.001A - Fracture of unspecified part of neck of right femur, initial enco unter for closed fracture (2) DMII (diabetes mellitus, type 2): Status: Chronic Comment: Controlled w/ neurologic complications Qualifiers: Diabetes mellitus penitentiary insulin use: without technician terminal and repeater use Diabetes mellitus complication status: with neurologic complications Diabetes mellitus complication detail: with polyneuropathy Qualified Code(s): E11.42 - Type 2 diabetes mellitus with diabetic polyneuropathy (3) Hypertension, essential: Status: Chronic (4) Hyperlipidemia: Status: Chronic Qualifiers: Hyperlipidemia type: unspecified Qualified Code(s): E78.5 - Hyperlipidemia, unspecified (5) COPD (chronic obstructive pulmonary disease): Status: Chronic Qualifiers: COPD type: chronic bronchitis Chronic bronchitis type: mucopurulent Qualified Code(s): J41.1 - Mucopurulent chronic bronchitis (6) Anemia, hyperchromic: Status: Acute Narrative A/P Narrative: Assessment and Plans: 1. Right hip fracture: Stays in inpatient med surg s/p right hip hemiarthroplasty by Dr. Huber on 03/04 Tramadol PRN moderate pain Morphine IV PRN severe pain [place]ora PRN moderate pain Toradol IV PRN mild pain Increase activity as tolerated Physical therapy Occupational therapy 2. Essential HTN: Continue home regimen of oral antihypertensives Hydralazine IV PRN SBP>=180mmHg and/or DBP>=110mmHg 3. Mixed dyslipidemia: Continue statin therapy 4. Anemia, hyperchromic: Continue to monitor cbc w/ auto diff in the morning to trend H/H after surgery 5. COPD: Continue bronchodilators, supplemental oxygen as needed titrate to achieve spo2>=88% 6. T2DM: HgA1c Hold any oral hypoglycemics Low dose SSI AC HS Accu Chek AC HS Hypoglycemia protocol Diabetic diet for now, then NPO after midnight GI ppx: continue oral PPI from home regimen DVT ppx: Lovenox Code status: Full Prognosis: stable Disposition: inpatient med surg Time Spent With Patient Time: Total time spent is greater than 50% in coordination of care (as documented) at patient's floor/unit and/or counseling patient: Total time spent with greater than 50% in coordination of care (as documented) at patient's floor/unit and/or counseling patient:: 25 - 35 minutes QUALITY Stroke Symptom Onset Unknown: No VTE Deep Vein Thrombosis/Pulmonary Embolism Present on Admission: No
[2021-03-05] MEDS: ceFAZolin 1 GM VIAL IV SCH (17:26)
[2021-03-05] MEDS: ENOXAPARIN 30 MG/0.3 ML SYRINGE SQ SCH (20:54)
[2021-03-05] MEDS: SENNOSIDES 1 TABLET PO SCH (20:55)
[2021-03-05] MEDS: hydrOXYzine 25 MG TABLET PO SCH (20:56)
--- NOTE | 2021-03-05 21:34 | Operative Note ---
Operative Note Operative Note: Pre-operative diagnosis: Right femoral neck fracture Postoperative diagnosis: Same Procedure: Right hip hemiarthroplasty Implants: Depuy Actis stem bipolar hemiarthroplasty, size 6 press-fit stem standard neck, +8 mm 28 mm ball with 47 mm outer head. Findings: As above Complications: None Estimated Blood loss: 250 cc Assist: Chris Fofana whose assistance was critical for safety and efficacy of the procedure. DOS: March 05, 2021 Clinical note: The patient continues to suffer from the above mentioned diagnosis. She had a fall and could not ambulate after her fall. She is brought to the emergency room where she diagnosed with a right femoral neck fracture. Orthopedic consultation was sought. Advantages of surgical fixation were discussed with patient which include more rapid mobilization. Risks include but are not limited to: Heart attack, stroke, , implant failure or infection. Patient consented the procedure aware and understanding of the risks. H&P: The patient was met outside the operating room and symptoms were reviewed and a physical exam performed. The patient demonstrated ongoing symptoms and signs as previously discussed. Risk versus benefits of the procedure were again discussed. Patient wished to proceed with the surgery aware and understanding of these risks. The operative site was marked. The patient was brought into the operating room and positioned in the usual fashion lateral with all bony prominences padded. A lateral approach was used. An incision was made directly over the GT extending proximally and distally by approximately 10 cm, then through IT band. Next the abductors were lifted in the usual 1/3-2/3 split fashion. Next the capsule was split. The hip was dislocated anteriorly. This revealed the fractured femoral head and neck in the acetabulum. The proximal aspect of the femur was then exposed using Hohmann retractors. The remainder of neck was removed with an oscillating saw. The femoral head was removed with a corkscrew. The acetabulum was inspected for any debris and this was removed. The proximal aspect of the femur was opened with a box osteotome. We then sequentially broached larger sizes until good fit within the femoral canal was achieved with the size noted above. A trial reduction was performed with a trial head. This reduced easily, providing equal leg lengths as could be determined by measuring through the drape.stability of the hip was assessed and was determined to be stable in flexion adduction and extension and external rotation. With the 2 thighs parallel, the knee was able to be flexed to 90 degrees with appropriate tension. The trial was then dislocated. The wound and canal were thoroughly irrigated. The trial was exchanged with a definitive component. Again the hip was reduced. Stability and tension were again checked and found to be satisfactory, and we confirmed that the hip did not dislocate and the legs leg lengths were equal. The capsule and abductors were closed with 2.0 fiberwire. The IT band was closed with #1 vicryl followed by 2.0 vicryl for the subcutaneous layers and katerina for skin. A sterile dressing was applied. The patient was brought to PACU in good condition. He can be weightbearing as tolerated. Dressing can be changed postop day 7. They can follow-up with orthopedics in 10 to 14 days time for wound check and staple removal. If not discharged from hospital at that time katerina can be removed and follow-up can be postponed till 6 weeks postoperatively with orthopedics.
[2021-03-06] MEDS: 0.9 % SODIUM CHLORIDE 1,000 ML IV SCH (01:47)
[2021-03-06] MEDS: LACTATED RINGERS 1,000 ML IV SCH (01:48)
[2021-03-06] MEDS: ceFAZolin 1 GM VIAL IV SCH (01:59)
[2021-03-06] MEDS: 0.9 % SODIUM CHLORIDE 10 ML SYRINGE IV SCH ×3 (05:07→20:29)
[2021-03-06] MEDS: INSULIN LISPRO 1 UNIT/0.01 ML UNIT SQ SCH ×5 (06:45→20:28)
[2021-03-06 06:48] LABS: Basophils # (Auto) 0.01 K/mcL (0.00-0.30); Basophils % (Auto) 0.1 % (0.0-2.0); Eosinophils # (Auto) 0.04 K/mcL (0.00-0.70); Eosinophils % (Auto) 0.3 % (0.0-7.0); Hematocrit 29.9 % (34.1-44.9); Hemoglobin 9.5 g/dL (11.2-15.7); Lymphocytes # (Auto) 0.65 K/mcL (1.50-4.80); Mean Cell Volume 103.1 fL (80.0-100.0); Mean Corpuscular HGB Conc 31.8 g/dL (31.0-36.0); Mean Platelet Volume 12.8 fL (7.4-10.4); Monocytes # (Auto) 0.36 K/mcL (0.10-0.90); Monocytes % (Auto) 2.8 % (1.0-12.0); Neutrophils % (Auto) 91.8 % (38.0-78.0); Platelet Count 191 K/mcL (140-440); Red Cell Distribution Width 13.2 % (11.5-14.5)
[2021-03-06] MEDS: GEMFIBROZIL 600 MG TABLET PO SCH ×2 (07:16→16:03)
[2021-03-06] MEDS: LEVOTHYROXINE 50 MCG TABLET PO SCH (07:17)
[2021-03-06] MEDS: OMEPRAZOLE 20 MG CAPSULE PO SCH ×2 (07:17→16:02)
[2021-03-06 07:22] LABS: INR 1.8 (0.9-1.1); Prothrombin Time 22.1 sec (11.9-14.5)
[2021-03-06] MEDS: ATENOLOL 50 MG TABLET PO SCH (08:19)
[2021-03-06] MEDS: CLOPIDOGREL 75 MG TABLET PO SCH (08:19)
[2021-03-06] MEDS: VITAMIN D3 400 UNIT TABLET PO SCH (08:20)
[2021-03-06] MEDS: MELOXICAM 7.5 MG TABLET PO SCH (08:20)
[2021-03-06] MEDS: traMADol 50 MG TABLET PO SCH ×2 (08:20→20:27)
[2021-03-06] MEDS: MAGNESIUM OXIDE 400 MG TABLET PO SCH (08:20)
[2021-03-06] MEDS: ASPIRIN 81 MG TAB.CHEW PO SCH (08:20)
[2021-03-06] MEDS: PREGABALIN 25 MG CAPSULE PO SCH (08:21)
[2021-03-06] MEDS: CYANOCOBALAMIN (VITAMIN B-12) 2,500 MCG TAB.SUBL SL SCH (08:21)
[2021-03-06] MEDS: FUROSEMIDE 40 MG TABLET PO SCH (08:21)
[2021-03-06] MEDS: POTASSIUM CHLORIDE 20 MEQ TABLET PO SCH (08:21)
[2021-03-06] MEDS: OMEGA PO SCH (08:36)
[2021-03-06] MEDS: [UNRECOGNIZED DRUG - OTHER] PO SCH (08:36)
[2021-03-06] MEDS: FEXOFENADINE 180 MG TABLET PO SCH (08:40)
[2021-03-06] MEDS: DOCUSATE SODIUM 100 MG CAPSULE PO SCH ×2 (08:41→20:27)
[2021-03-06] MEDS: ENOXAPARIN 30 MG/0.3 ML SYRINGE SQ SCH ×2 (09:58→20:28)
--- NOTE | 2021-03-06 10:19 | Internal Med Progress Note ---
SUBJECTIVE Subjective Patient information: Note initiated : 03/06/21 at 10:16 am Service Date, if different from initiated Date: [] Patient: Corinne Crawford a 85 y/o F admitted on 03/04/21 for fall. Chief Complaint: [right femoral neck fracture] Interval history: History of present illness: Ms. Crawford is a 85 year old F history of type 2 diabetes mellitus, essential hypertension, mixed dyslipidemia, COPD, presenting with fall with resultant right hip fractures. There was no prior similar episode. Today when she was waiting to be picked up by family, she lost her balance with her cane and fell with landing on her right body. She did not pass out, no loss of consciousness, no chest pain or palpitations, no shortness of breath. No confusion after the fall. EMS was called to send patients to our ED for further evaluations. Patient is currently committing of 9 of 10, sharp, constant pain localized in her right lateral hip. Hip x-ray showed right hip fracture with mild angulation and impaction. 03/05: s/p right hip hemiarthroplasty by Dr. Huber earlier today. Denies right hip pain. Denies SOB. Denies fever or chills. Denies nausea or vomiting. Has not have bowel movement yet. 03/06: s/p right hip hemiarthroplasty by Dr. Huber on 03/05. Denies right hip pain. Denies SOB. Denies fever or chills. Denies nausea or vomiting. Good appetite and passed a small bowel movement earlier today. Constitutional Vitals: Vital Signs Temp Pulse Resp BP Pulse Ox 36.2 C 69 18 111/66 90 03/06/21 07:15 03/06/21 07:15 03/06/21 07:15 03/06/21 07:15 03/06/21 07:15 Period Temp Pulse Resp BP Sys/Mora Pulse Ox Last 24 Hr 36.2 C-37.0 C 67-115 6-18 99-155/43-84 90-100 Intake and Output 03/05/21 03/06/21 03/06/21 21:59 05:59 13:59 Intake Total 240 1000 1000 Output Total 450 1800 Balance -210 -800 1000 Weight 70.715 kg Intake & Output: Intake & Output 03/05/21 03/06/21 03/06/21 21:59 05:59 13:59 Intake Total 240 1000 1000 Output Total 450 1800 Balance -210 -800 1000 Weight 70.715 kg Intake: IV 0 1000 1000 Sodium Chloride 0.9% 1,000 ml @ 0 1000 100 mls/hr IV .Q10H [facility] Rx#: [id number] Lactated Ringers 1,000 ml @ 75 1000 mls/hr IV .[id number] [facility] Rx#: [id number] Oral 240 Output: Urine Catheter Amount 450 1800 Other: Meal Dinner Percent of Meal Consumed 100% Feeding Ability Independent Urine Appearance Clear Clear Uretheral (Bower) Clear Urine Color Dark Yellow Dark Yellow Uretheral (Bower) Dark Yellow Urine Odor Normal Normal Uretheral (Bower) Normal Stool Size Moderate Stool Color Brown Stool Consistency Soft Formed # Bowel Movements 1 General appearance: cooperative and no acute distress Head Head exam: Present atraumatic and normocephalic Eye Eye exam: Present EOMI and PERRL ENT ENT exam: Present mucous membranes moist, normal exam and normal external ear exam Neck Neck exam: Present normal inspection; Absent lymphadenopathy, tenderness and thyromegaly Respiratory Respiratory exam: Absent accessory muscle use, respiratory distress and wheezes Cardiovascular Cardiovascular exam: Present normal rate and rhythm; Absent JVD GI/Abdominal GI/Abdominal exam: Present normal bowel sounds and soft; Absent organomegaly and tenderness Extremities Exam Extremities exam: Present normal capillary refill and tenderness; Absent full ROM and normal inspection Additional comments: Right lateral hip covered by surgical dressing; tenderness to palpation. ROMs slightly limited by pain. Neurological Exam Neurological exam: Present alert, CN II-XII intact and oriented X3; Absent motor sensory deficit Psychiatric Psychiatric exam: Present normal affect and normal mood; Absent anxious and depressed Skin Skin exam: Present dry and intact OBJ DATA Labs CBC & Chem 7: 03/06/21 05:53 03/04/21 14:27 Labs: Abnormal Lab Results 03/06/21 03/06/21 03/05/21 05:53 05:52 05:37 WBC 13.0 H RBC 2.90 L 3.10 L Hgb 9.5 L 9.9 L Hct 29.9 L 32.2 L MCV 103.1 H 103.9 H MCHC 30.7 L MPV 12.8 H 12.7 H Neut % (Auto) 91.8 H 88.2 H Lymph % (Auto) 5.0 L 6.1 L Lymph # (Auto) 0.65 L 0.64 L Absolute Neutrophils 11.93 H 9.31 H PT 22.1 H INR 1.8 H Chloride BUN Creatinine Glucose Calcium Alkaline Phosphatase Urine Mucus 03/04/21 03/04/21 03/04/21 14:27 14:27 14:27 WBC RBC Hgb Hct MCV MCHC MPV Neut % (Auto) Lymph % (Auto) Lymph # (Auto) Absolute Neutrophils PT 20.3 H INR 1.7 H Chloride 109 H BUN 24 H Creatinine 1.3 H Glucose 220 H Calcium 8.1 L Alkaline Phosphatase 141 H Urine Mucus Few A 03/04/21 14:27 WBC RBC 3.12 L Hgb 10.1 L Hct 32.6 L MCV 104.5 H MCHC MPV 12.6 H Neut % (Auto) 91.1 H Lymph % (Auto) 5.9 L Lymph # (Auto) 0.58 L Absolute Neutrophils 8.87 H PT INR Chloride BUN Creatinine Glucose Calcium Alkaline Phosphatase Urine Mucus Meds: Medications Acetaminophen (Acetaminophen 325 Mg Tablet) 650 mg PO Q6HP PRN; Protocol PRN Reason: Per Pain Protocol/Fever > 101 Hydrocodone Bitart/Acetaminophen (Hydrocodone/Apap 7.5/325mg Tablet) 0 tab PO Q4HP PRN; Protocol PRN Reason: Per Pain Protocol Albuterol Sulfate (Albuterol Sulfate 200 Puff Inhaler) 2 puff INH Q6H PRN PRN Reason: Dyspnea Aspirin (Aspirin 81 Mg Tab.Chew) 81 mg PO DAILY [facility] Last Admin: 03/06/21 08:20 Dose: 81 mg Documented by: Atenolol (Atenolol 50 Mg Tablet) 50 mg PO DAILY [facility] Last Admin: 03/06/21 08:19 Dose: 50 mg Documented by: Clopidogrel Bisulfate (Clopidogrel 75 Mg Tablet) 75 mg PO DAILY [facility] Last Admin: 03/06/21 08:19 Dose: 75 mg Documented by: Cyanocobalamin (Cyanocobalamin (Vitamin B-12) 2,500 Mcg Tab.Subl) 2,500 mcg SL QDAY [facility] Last Admin: 03/06/21 08:21 Dose: 2,500 mcg Documented by: Dextrose (Dextrose 50% 50 Ml Vial) 0 ml IV UD PRN PRN Reason: Hypoglycemia Diagnostic Test (Pha) (Accu-Chek 1 Each Strip) 1 each FS [facility] Last Admin: 03/06/21 07:11 Dose: 1 each Documented by: Docusate Sodium (Docusate Sodium 100 Mg Capsule) 100 mg PO BID [facility] Last Admin: 03/06/21 08:41 Dose: Not Given Documented by: Enoxaparin Sodium (Enoxaparin 30 Mg/0.3 Ml Syringe) 30 mg SQ BID [facility] Last Admin: 03/06/21 09:58 Dose: 30 mg Documented by: Ferrous Sulfate (Ferrous Sulfate 325 Mg Tablet) 325 mg PO BID@1200,1730 [facility] Last Admin: 03/05/21 17:26 Dose: 325 mg Documented by: Fexofenadine HCl (Fexofenadine 180 Mg Tablet) 180 mg PO Q24H [facility] Last Admin: 03/06/21 08:40 Dose: Not Given Documented by: Furosemide (Furosemide 40 Mg Tablet) 20 mg PO QAM [facility] Last Admin: 03/06/21 08:21 Dose: 20 mg Documented by: Gemfibrozil (Gemfibrozil 600 Mg Tablet) 600 mg PO BIDAC [facility] Last Admin: 03/06/21 07:16 Dose: 600 mg Documented by: Glucose (Dextrose 31 Gm Oral.Susp) 15 gm PO PRN PRN PRN Reason: Hypoglycemia Hydralazine HCl (Hydralazine 20 Mg/Ml Vial) 10 mg IV Q4-6HP PRN PRN Reason: Hypertension Hydroxyzine HCl (Hydroxyzine 25 Mg Tablet) 25 mg PO QHS [facility] Last Admin: 03/05/21 20:56 Dose: 25 mg Documented by: Insulin Human Lispro (Insulin Lispro 1 Unit/0.01 Ml Unit) 0 unit SQ [facility]; Protocol Last Admin: 03/06/21 07:12 Dose: Not Given Documented by: Ketorolac Tromethamine (Ketorolac 15 Mg/Ml Vial) 15 mg IV Q6HP PRN; Protocol PRN Reason: Per Pain Protocol Stop: 03/07/21 09:37 Last Admin: 03/05/21 20:55 Dose: 15 mg Documented by: Levothyroxine Sodium (Levothyroxine 50 Mcg Tablet) 50 mcg PO QAMAC [facility] Last Admin: 03/06/21 07:17 Dose: 50 mcg Documented by: Magnesium Hydroxide (Magnesium Hydroxide 30 Ml Oral.Susp) 30 ml PO BIDP PRN PRN Reason: Constipation Magnesium Oxide (Magnesium Oxide 400 Mg Tablet) 200 mg PO QDAY [facility] Last Admin: 03/06/21 08:20 Dose: 200 mg Documented by: Melatonin (Melatonin 3 Mg Tablet) 3 mg PO HSP PRN PRN Reason: Sleep Meloxicam (Meloxicam 7.5 Mg Tablet) 7.5 mg PO QDAY [facility]; Protocol Last Admin: 03/06/21 08:20 Dose: 7.5 mg Documented by: Methocarbamol (Methocarbamol 1,000 Mg/10 Ml Vial) 750 mg IV Q6HP PRN PRN Reason: Muscle Spasm Morphine Sulfate (Morphine 4 Mg/Ml Vial) 4 mg IV Q4HP PRN; Protocol PRN Reason: Per Pain Protocol Last Admin: 03/05/21 02:15 Dose: 4 mg Documented by: Naloxone HCl (Naloxone Hcl 0.4 Mg/Ml Vial) 0.1 mg IV Q2MIN PRN PRN Reason: Opiate Reversal Non-Formulary Medication ([place]-3 Fatty Acids-Fish Oil) 1,000 mg PO DAILY [facility] Last Admin: 03/06/21 08:36 Dose: Not Given Documented by: Omeprazole (Omeprazole 20 Mg Capsule) 20 mg PO BIDAC [facility] Last Admin: 03/06/21 07:17 Dose: 20 mg Documented by: Ondansetron HCl (Ondansetron 4 Mg/2 Ml Vial) 4 mg IV Q6HP PRN PRN Reason: Nausea And Vomiting Polyethylene Glycol (Polyethylene Glycol 3350 17 Gm Packet) 17 gm PO DAILYP PRN PRN Reason: Constipation Potassium Chloride (Potassium Chloride 20 Meq Tablet) [facility] Last Admin: 03/06/21 08:21 Dose: 20 meq Documented by: Pregabalin (Pregabalin 25 Mg Capsule) 50 mg PO QDAY [facility] Last Admin: 03/06/21 08:21 Dose: 50 mg Documented by: Scopolamine (Scopolamine 1 Patch Patch) 1 patch TOPICAL PREOP PRN PRN Reason: Nausea And Vomiting Senna (Sennosides 1 Tablet) 2 tab PO HS [facility] Last Admin: 03/05/21 20:55 Dose: 2 tab Documented by: Sodium Chloride (0.9 % Sodium Chloride 10 Ml Syringe) 10 ml IV Q8 [facility] Last Admin: 03/06/21 05:07 Dose: Not Given Documented by: Throat Lozenges (Benzocaine/Menthol 1 Lozenge) 1 lozenge PO PRN PRN PRN Reason: Sore Throat Tramadol HCl (Tramadol 50 Mg Tablet) 50 mg PO BID [facility]; Protocol Last Admin: 03/06/21 08:20 Dose: 50 mg Documented by: Tramadol HCl (Tramadol 50 Mg Tablet) 50 mg PO Q4HP PRN; Protocol PRN Reason: Pain Last Admin: 03/05/21 03:48 Dose: 50 mg Documented by: Vitamin D (Vitamin D3 400 Unit Tablet) 400 unit PO DAILY [facility] Last Admin: 03/06/21 08:20 Dose: 400 unit Documented by: Zolpidem Tartrate (Zolpidem 5 Mg Tablet) 5 mg PO HSP PRN PRN Reason: Insomnia Last Admin: 03/05/21 20:56 Dose: 5 mg Documented by: A/P Assessment and plan (1) Closed hip fracture: Status: Acute Qualifiers: Encounter type: initial encounter Laterality: right Qualified Code(s): S72.001A - Fracture of unspecified part of neck of right femur, initial encounter for closed fracture (2) DMII (diabetes mellitus, type 2): Status: Chronic Comment: Controlled w/ neurologic complications Qualifiers: 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 insulin use: without penitentiary use Diabetes mellitus complication status: with neurologic complications Diabetes mellitus complication detail: with polyneuropathy Qualified Code(s): E11.42 - Type 2 diabetes mellitus with diabetic polyneuropathy (3) Hypertension, essential: Status: Chronic (4) Hyperlipidemia: Status: Chronic Qualifiers: Hyperlipidemia type: unspecified Qualified Code(s): E78.5 - Hyperlipidemia, unspecified (5) COPD (chronic obstructive pulmonary disease): Status: Chronic Qualifiers: COPD type: chronic bronchitis Chronic bronchitis type: mucopurulent Qualified Code(s): J41.1 - Mucopurulent chronic bronchitis (6) Anemia, hyperchromic: Status: Acute Narrative A/P Narrative: Assessment and Plans: 1. Right hip fracture: Stays in inpatient med surg s/p right hip hemiarthroplasty by Dr. Huber on 03/04 Tramadol PRN moderate pain Morphine IV PRN severe pain [place] PRN moderate pain Toradol IV PRN mild pain Increase activity as tolerated Physical therapy---->SNF placement Occupational therapy 2. Essential HTN: Continue home regimen of oral antihypertensives Hydralazine IV PRN SBP>=180mmHg and/or DBP>=110mmHg 3. Mixed dyslipidemia: Continue statin therapy 4. Anemia, hyperchromic: Continue to monitor cbc w/ auto diff in the morning to trend H/H after surgery 5. COPD: Continue bronchodilators, supplemental oxygen as needed titrate to achieve spo2>=88% 6. T2DM: HgA1c Hold any oral hypoglycemics Low dose SSI AC HS Accu Chek AC HS Hypoglycemia protocol Diabetic diet for now, then NPO after midnight GI ppx: continue oral PPI from home regimen DVT ppx: Lovenox Code status: Full Prognosis: stable Disposition: inpatient med surg; pending SNF placement Time Spent With Patient Time: Total time spent is greater than 50% in coordination of care (as documented) at patient's floor/unit and/or counseling patient: QUALITY Stroke Symptom Onset Unknown: No VTE Deep Vein Thrombosis/Pulmonary Embolism Present on Admission: No
--- NOTE | 2021-03-06 10:49 | Orthopedic Progress Note ---
SUBJECTIVE Subjective Patient information: Note initiated : 03/06/21 at 10:45 am Service Date, if different from initiated Date: [] Patient: Corinne Crawford 85 y/o F admitted on 03/04/21 for fall. Chief Complaint: 1 day postop right hip bipolar hemiarthroplasty. Patient was alert and oriented and able to ambulate with a walker without significant pain. The incision site was dry. She had no complaints. Constitutional Vitals: Vital Signs Temp Pulse Resp BP Pulse Ox 97.2 F 69 18 111/66 90 03/06/21 07:15 03/06/21 07:15 03/06/21 07:15 03/06/21 07:15 03/06/21 07:15 Period Temp Pulse Resp BP Sys/Mora Pulse Ox Last 24 Hr 97.1 F-98.6 F 67-115 6-18 99-155/43-84 90-100 Intake and Output 03/05/21 03/06/21 03/06/21 21:59 05:59 13:59 Intake Total 240 1000 1000 Output Total 450 1800 Balance -210 -800 1000 Weight 155 lb 14.4 oz Intake & Output: Intake & Output 03/05/21 03/06/21 03/06/21 21:59 05:59 13:59 Intake Total 240 1000 1000 Output Total 450 1800 Balance -210 -800 1000 Weight 155 lb 14.4 oz Intake: IV 0 1000 1000 Sodium Chloride 0.9% 1,000 ml @ 0 1000 100 mls/hr IV .Q10H [facility] Rx#: [id number] Lactated Ringers 1,000 ml @ 75 1000 mls/hr IV .[id number] [facility] Rx#: [id number] Oral 240 Output: Urine Catheter Amount 450 1800 Other: Meal Dinner Percent of Meal Consumed 100% Feeding Ability Independent Urine Appearance Clear Clear Uretheral (Bower) Clear Urine Color Dark Yellow Dark Yellow Uretheral (Bower) Dark Yellow Urine Odor Normal Normal Uretheral (Bower) Normal Stool Size Moderate Stool Color Brown Stool Consistency Soft Formed # Bowel Movements 1 OBJ DATA Labs CBC & Chem 7: 03/06/21 05:53 03/04/21 14:27 Labs: Abnormal Lab Results 03/06/21 03/06/21 03/05/21 05:53 05:52 05:37 WBC 13.0 H RBC 2.90 L 3.10 L Hgb 9.5 L 9.9 L Hct 29.9 L 32.2 L MCV 103.1 H 103.9 H MCHC 30.7 L MPV 12.8 H 12.7 H Neut % (Auto) 91.8 H 88.2 H Lymph % (Auto) 5.0 L 6.1 L Lymph # (Auto) 0.65 L 0.64 L Absolute Neutrophils 11.93 H 9.31 H PT 22.1 H INR 1.8 H Chloride BUN Creatinine Glucose Calcium Alkaline Phosphatase Urine Mucus 03/04/21 03/04/21 03/04/21 14:27 14:27 14:27 WBC RBC Hgb Hct MCV MCHC MPV Neut % (Auto) Lymph % (Auto) Lymph # (Auto) Absolute Neutrophils PT 20.3 H INR 1.7 H Chloride 109 H BUN 24 H Creatinine 1.3 H Glucose 220 H Calcium 8.1 L Alkaline Phosphatase 141 H Urine Mucus Few A 03/04/21 14:27 WBC RBC 3.12 L Hgb 10.1 L Hct 32.6 L MCV 104.5 H MCHC MPV 12.6 H Neut % (Auto) 91.1 H Lymph % (Auto) 5.9 L Lymph # (Auto) 0.58 L Absolute Neutrophils 8.87 H PT INR Chloride BUN Creatinine Glucose Calcium Alkaline Phosphatase Urine Mucus Meds: Medications Acetaminophen (Acetaminophen 325 Mg Tablet) 650 mg PO Q6HP PRN; Protocol PRN Reason: Per Pain Protocol/Fever > 101 Hydrocodone Bitart/Acetaminophen (Hydrocodone/Apap 7.5/325mg Tablet) 0 tab PO Q4HP PRN; Protocol PRN Reason: Per Pain Protocol Albuterol Sulfate (Albuterol Sulfate 200 Puff Inhaler) 2 puff INH Q6H PRN PRN Reason: Dyspnea Aspirin (Aspirin 81 Mg Tab.Chew) 81 mg PO DAILY [facility] Last Admin: 03/06/21 08:20 Dose: 81 mg Documented by: Atenolol (Atenolol 50 Mg Tablet) 50 mg PO DAILY [facility] Last Admin: 03/06/21 08:19 Dose: 50 mg Documented by: Clopidogrel Bisulfate (Clopidogrel 75 Mg Tablet) 75 mg PO DAILY [facility] Last Admin: 03/06/21 08:19 Dose: 75 mg Documented by: Cyanocobalamin (Cyanocobalamin (Vitamin B-12) 2,500 Mcg Tab.Subl) 2,500 mcg SL QDAY [facility] Last Admin: 03/06/21 08:21 Dose: 2,500 mcg Documented by: Dextrose (Dextrose 50% 50 Ml Vial) 0 ml IV UD PRN PRN Reason: Hypoglycemia Diagnostic Test (Pha) (Accu-Chek 1 Each Strip) 1 each FS [facility] Last Admin: 03/06/21 07:11 Dose: 1 each Documented by: Docusate Sodium (Docusate Sodium 100 Mg Capsule) 100 mg PO BID [facility] Last Admin: 03/06/21 08:41 Dose: Not Given Documented by: Enoxaparin Sodium (Enoxaparin 30 Mg/0.3 Ml Syringe) 30 mg SQ BID [facility] Last Admin: 03/06/21 09:58 Dose: 30 mg Documented by: Ferrous Sulfate (Ferrous Sulfate 325 Mg Tablet) 325 mg PO BID@1200,1730 [facility] Last Admin: 03/05/21 17:26 Dose: 325 mg Documented by: Fexofenadine HCl (Fexofenadine 180 Mg Tablet) 180 mg PO Q24H [facility] Last Admin: 03/06/21 08:40 Dose: Not Given Documented by: Furosemide (Furosemide 40 Mg Tablet) 20 mg PO QAM [facility] Last Admin: 03/06/21 08:21 Dose: 20 mg Documented by: Gemfibrozil (Gemfibrozil 600 Mg Tablet) 600 mg PO BIDAC [facility] Last Admin: 03/06/21 07:16 Dose: 600 mg Documented by: Glucose (Dextrose 31 Gm Oral.Susp) 15 gm PO PRN PRN PRN Reason: Hypoglycemia Hydralazine HCl (Hydralazine 20 Mg/Ml Vial) 10 mg IV Q4-6HP PRN PRN Reason: Hypertension Hydroxyzine HCl (Hydroxyzine 25 Mg Tablet) 25 mg PO QHS [facility] Last Admin: 03/05/21 20:56 Dose: 25 mg Documented by: Insulin Human Lispro (Insulin Lispro 1 Unit/0.01 Ml Unit) 0 unit SQ [facility]; Protocol Last Admin: 03/06/21 07:12 Dose: Not Given Documented by: Ketorolac Tromethamine (Ketorolac 15 Mg/Ml Vial) 15 mg IV Q6HP PRN; Protocol PRN Reason: Per Pain Protocol Stop: 03/07/21 09:37 Last Admin: 03/05/21 20:55 Dose: 15 mg Documented by: Levothyroxine Sodium (Levothyroxine 50 Mcg Tablet) 50 mcg PO QAMAC [facility] Last Admin: 03/06/21 07:17 Dose: 50 mcg Documented by: Magnesium Hydroxide (Magnesium Hydroxide 30 Ml Oral.Susp) 30 ml PO BIDP PRN PRN Reason: Constipation Magnesium Oxide (Magnesium Oxide 400 Mg Tablet) 200 mg PO QDAY [facility] Last Admin: 03/06/21 08:20 Dose: 200 mg Documented by: Melatonin (Melatonin 3 Mg Tablet) 3 mg PO HSP PRN PRN Reason: Sleep Meloxicam (Meloxicam 7.5 Mg Tablet) 7.5 mg PO QDAY [facility]; Protocol Last Admin: 03/06/21 08:20 Dose: 7.5 mg Documented by: Methocarbamol (Methocarbamol 1,000 Mg/10 Ml Vial) 750 mg IV Q6HP PRN PRN Reason: Muscle Spasm Morphine Sulfate (Morphine 4 Mg/Ml Vial) 4 mg IV Q4HP PRN; Protocol PRN Reason: Per Pain Protocol Last Admin: 03/05/21 02:15 Dose: 4 mg Documented by: Naloxone HCl (Naloxone Hcl 0.4 Mg/Ml Vial) 0.1 mg IV Q2MIN PRN PRN Reason: Opiate Reversal Non-Formulary Medication ([place]-3 Fatty Acids-Fish Oil) 1,000 mg PO DAILY [facility] Last Admin: 03/06/21 08:36 Dose: Not Given Documented by: Omeprazole (Omeprazole 20 Mg Capsule) 20 mg PO BIDAC [facility] Last Admin: 03/06/21 07:17 Dose: 20 mg Documented by: Ondansetron HCl (Ondansetron 4 Mg/2 Ml Vial) 4 mg IV Q6HP PRN PRN Reason: Nausea And Vomiting Polyethylene Glycol (Polyethylene Glycol 3350 17 Gm Packet) 17 gm PO DAILYP PRN PRN Reason: Constipation Potassium Chloride (Potassium Chloride 20 Meq Tablet) [facility] Last Admin: 03/06/21 08:21 Dose: 20 meq Documented by: Pregabalin (Pregabalin 25 Mg Capsule) 50 mg PO QDAY [facility] Last Admin: 03/06/21 08:21 Dose: 50 mg Documented by: Scopolamine (Scopolamine 1 Patch Patch) 1 patch TOPICAL PREOP PRN PRN Reason: Nausea And Vomiting Senna (Sennosides 1 Tablet) 2 tab PO [facility] Last Admin: 03/05/21 20:55 Dose: 2 tab Documented by: Sodium Chloride (0.9 % Sodium Chloride 10 Ml Syringe) 10 ml IV Q8 [facility] Last Admin: 03/06/21 05:07 Dose: Not Given Documented by: Throat Lozenges (Benzocaine/Menthol 1 Lozenge) 1 lozenge PO PRN PRN PRN Reason: Sore Throat Tramadol HCl (Tramadol 50 Mg Tablet) 50 mg PO BID [facility]; Protocol Last Admin: 03/06/21 08:20 Dose: 50 mg Documented by: Tramadol HCl (Tramadol 50 Mg Tablet) 50 mg PO Q4HP PRN; Protocol PRN Reason: Pain Last Admin: 03/05/21 03:48 Dose: 50 mg Documented by: Vitamin D (Vitamin D3 400 Unit Tablet) 400 unit PO DAILY [facility] Last Admin: 03/06/21 08:20 Dose: 400 unit Documented by: Zolpidem Tartrate (Zolpidem 5 Mg Tablet) 5 mg PO HSP PRN PRN Reason: Insomnia Last Admin: 03/05/21 20:56 Dose: 5 mg Documented by: A/P Time Spent With Patient Time: Total time spent is greater than 50% in coordination of care (as documented) at patient's floor/unit and/or counseling patient: Overall this patient is doing very well 1 day postop bipolar hip hemiarthroplasty on the right side. She is able to ambulate with a walker already does not have any significant pain. Her incision is clean dry and intact. Plan: Continue to work on mobilization as per physical therapy. Disposition planning as per floor team. Follow-up with myself or physician assistant head cashier in 2 weeks time for wound check and staple removal. Prescription for pain control and aspirin for DVT prophylaxis was provided. Orthopedics signed off. Please contact orthopedics Dr. Huber for any issues or concerns.
--- NOTE | 2021-03-06 10:57 | Orthopedic Progress Note ---
SUBJECTIVE Subjective Patient information: Note initiated : 03/06/21 at 10:52 am Service Date, if different from initiated Date: [] Patient: Corinne Crawford 85 y/o F admitted on 03/04/21 for fall. Chief Complaint: [] HPI: Patient is POD 1 doing well and is participating in PT and has minimal pa in. She denies any other acute complaints. Wishes to go to a SNF. Constitutional Vitals: Vital Signs Temp Pulse Resp BP Pulse Ox 97.2 F 69 18 111/66 90 03/06/21 07:15 03/06/21 07:15 03/06/21 07:15 03/06/21 07:15 03/06/21 07:15 Period Temp Pulse Resp BP Sys/Mora Pulse Ox Last 24 Hr 97.1 F-98.6 F 67-115 6-18 99-155/43-84 90-100 Intake and Output 03/05/21 03/06/21 03/06/21 21:59 05:59 13:59 Intake Total 240 1000 1000 Output Total 450 1800 Balance -210 -800 1000 Weight 155 lb 14.4 oz Intake & Output: Intake & Output 03/05/21 03/06/21 03/06/21 21:59 05:59 13:59 Intake Total 240 1000 1000 Output Total 450 1800 Balance -210 -800 1000 Weight 155 lb 14.4 oz Intake: IV 0 1000 1000 Sodium Chloride 0.9% 1,000 ml @ 0 1000 100 mls/hr IV .Q10H PATY Rx#: [id number] Lactated Ringers 1,000 ml @ 75 1000 mls/hr IV .[id number] PATY Rx#: [id number] Oral 240 Output: Urine Catheter Amount 450 1800 Other: Meal Dinner Percent of Meal Consumed 100% Feeding Ability Independent Urine Appearance Clear Clear Uretheral (Bower) Clear Urine Color Dark Yellow Dark Yellow Uretheral (Bower) Dark Yellow Urine Odor Normal Normal Uretheral (Bower) Normal Stool Size Moderate Stool Color Brown Stool Consistency Soft Formed # Bowel Movements 1 OBJ DATA Labs CBC & Chem 7: 03/06/21 05:53 03/04/21 14:27 Labs: Abnormal Lab Results 03/06/21 03/06/21 03/05/21 05:53 05:52 05:37 WBC 13.0 H RBC 2.90 L 3.10 L Hgb 9.5 L 9.9 L Hct 29.9 L 32.2 L MCV 103.1 H 103.9 H MCHC 30.7 L MPV 12.8 H 12.7 H Neut % (Auto) 91.8 H 88.2 H Lymph % (Auto) 5.0 L 6.1 L Lymph # (Auto) 0.65 L 0.64 L Absolute Neutrophils 11.93 H 9.31 H PT 22.1 H INR 1.8 H Chloride BUN Creatinine Glucose Calcium Alkaline Phosphatase Urine Mucus 03/04/21 03/04/21 03/04/21 14:27 14:27 14:27 WBC RBC Hgb Hct MCV MCHC MPV Neut % (Auto) Lymph % (Auto) Lymph # (Auto) Absolute Neutrophils PT 20.3 H INR 1.7 H Chloride 109 H BUN 24 H Creatinine 1.3 H Glucose 220 H Calcium 8.1 L Alkaline Phosphatase 141 H Urine Mucus Few A 03/04/21 14:27 WBC RBC 3.12 L Hgb 10.1 L Hct 32.6 L MCV 104.5 H MCHC MPV 12.6 H Neut % (Auto) 91.1 H Lymph % (Auto) 5.9 L Lymph # (Auto) 0.58 L Absolute Neutrophils 8.87 H PT INR Chloride BUN Creatinine Glucose Calcium Alkaline Phosphatase Urine Mucus Meds: Medications Acetaminophen (Acetaminophen 325 Mg Tablet) 650 mg PO Q6HP PRN; Protocol PRN Reason: Per Pain Protocol/Fever > 101 Hydrocodone Bitart/Acetaminophen (Hydrocodone/Apap 7.5/325mg Tablet) 0 tab PO Q4HP PRN; Protocol PRN Reason: Per Pain Protocol Albuterol Sulfate (Albuterol Sulfate 200 Puff Inhaler) 2 puff INH Q6H PRN PRN Reason: Dyspnea Aspirin (Aspirin 81 Mg Tab.Chew) 81 mg PO DAILY [facility] Last Admin: 03/06/21 08:20 Dose: 81 mg Documented by: Atenolol (Atenolol 50 Mg Tablet) 50 mg PO DAILY [facility] Last Admin: 03/06/21 08:19 Dose: 50 mg Documented by: Clopidogrel Bisulfate (Clopidogrel 75 Mg Tablet) 75 mg PO DAILY [facility] Last Admin: 03/06/21 08:19 Dose: 75 mg Documented by: Cyanocobalamin (Cyanocobalamin (Vitamin B-12) 2,500 Mcg Tab.Subl) 2,500 mcg SL QDAY [facility] Last Admin: 03/06/21 08:21 Dose: 2,500 mcg Documented by: Dextrose (Dextrose 50% 50 Ml Vial) 0 ml IV UD PRN PRN Reason: Hypoglycemia Diagnostic Test (Pha) (Accu-Chek 1 Each Strip) 1 each FS [facility] Last Admin: 03/06/21 07:11 Dose: 1 each Documented by: Docusate Sodium (Docusate Sodium 100 Mg Capsule) 100 mg PO BID [facility] Last Admin: 03/06/21 08:41 Dose: Not Given Documented by: Enoxaparin Sodium (Enoxaparin 30 Mg/0.3 Ml Syringe) 30 mg SQ BID [facility] Last Admin: 03/06/21 09:58 Dose: 30 mg Documented by: Ferrous Sulfate (Ferrous Sulfate 325 Mg Tablet) 325 mg PO BID@1200,1730 [facility] Last Admin: 03/05/21 17:26 Dose: 325 mg Documented by: Fexofenadine HCl (Fexofenadine 180 Mg Tablet) 180 mg PO Q24H [facility] Last Admin: 03/06/21 08:40 Dose: Not Given Documented by: Furosemide (Furosemide 40 Mg Tablet) 20 mg PO QAM [facility] Last Admin: 03/06/21 08:21 Dose: 20 mg Documented by: Gemfibrozil (Gemfibrozil 600 Mg Tablet) 600 mg PO BIDAC [facility] Last Admin: 03/06/21 07:16 Dose: 600 mg Documented by: Glucose (Dextrose 31 Gm Oral.Susp) 15 gm PO PRN PRN PRN Reason: Hypoglycemia Hydralazine HCl (Hydralazine 20 Mg/Ml Vial) 10 mg IV Q4-6HP PRN PRN Reason: Hypertension Hydroxyzine HCl (Hydroxyzine 25 Mg Tablet) 25 mg PO QHS [facility] Last Admin: 03/05/21 20:56 Dose: 25 mg Documented by: Insulin Human Lispro (Insulin Lispro 1 Unit/0.01 Ml Unit) 0 unit SQ [facility]; Protocol Last Admin: 03/06/21 07:12 Dose: Not Given Documented by: Ketorolac Tromethamine (Ketorolac 15 Mg/Ml Vial) 15 mg IV Q6HP PRN; Protocol PRN Reason: Per Pain Protocol Stop: 03/07/21 09:37 Last Admin: 03/05/21 20:55 Dose: 15 mg Documented by: Levothyroxine Sodium (Levothyroxine 50 Mcg Tablet) 50 mcg PO QAMAC [facility] Last Admin: 03/06/21 07:17 Dose: 50 mcg Documented by: Magnesium Hydroxide (Magnesium Hydroxide 30 Ml Oral.Susp) 30 ml PO BIDP PRN PRN Reason: Constipation Magnesium Oxide (Magnesium Oxide 400 Mg Tablet) 200 mg PO QDAY [facility] Last Admin: 03/06/21 08:20 Dose: 200 mg Documented by: Melatonin (Melatonin 3 Mg Tablet) 3 mg PO HSP PRN PRN Reason: Sleep Meloxicam (Meloxicam 7.5 Mg Tablet) 7.5 mg PO QDAY [facility]; Protocol Last Admin: 03/06/21 08:20 Dose: 7.5 mg Documented by: Methocarbamol (Methocarbamol 1,000 Mg/10 Ml Vial) 750 mg IV Q6HP PRN PRN Reason: Muscle Spasm Morphine Sulfate (Morphine 4 Mg/Ml Vial) 4 mg IV Q4HP PRN; Protocol PRN Reason: Per Pain Protocol Last Admin: 03/05/21 02:15 Dose: 4 mg Documented by: Naloxone HCl (Naloxone Hcl 0.4 Mg/Ml Vial) 0.1 mg IV Q2MIN PRN PRN Reason: Opiate Reversal Non-Formulary Medication ([place]-3 Fatty Acids-Fish Oil) 1,000 mg PO DAILY [facility] Last Admin: 03/06/21 08:36 Dose: Not Given Documented by: Omeprazole (Omeprazole 20 Mg Capsule) 20 mg PO BIDAC [facility] Last Admin: 03/06/21 07:17 Dose: 20 mg Documented by: Ondansetron HCl (Ondansetron 4 Mg/2 Ml Vial) 4 mg IV Q6HP PRN PRN Reason: Nausea And Vomiting Polyethylene Glycol (Polyethylene Glycol 3350 17 Gm Packet) 17 gm PO DAILYP PRN PRN Reason: Constipation Potassium Chloride (Potassium [facility] 20 Meq Tablet) [facility] Last Admin: 03/06/21 08:21 Dose: 20 meq Documented by: Pregabalin (Pregabalin 25 Mg Capsule) 50 mg PO QDAY [facility] Last Admin: 03/06/21 08:21 Dose: 50 mg Documented by: Scopolamine (Scopolamine 1 Patch Patch) 1 patch TOPICAL PREOP PRN PRN Reason: Nausea And Vomiting Senna (Sennosides 1 Tablet) 2 tab PO [facility] Last Admin: 03/05/21 20:55 Dose: 2 tab Documented by: Sodium Chloride (0.9 % Sodium Chloride 10 Ml Syringe) 10 ml IV Q8 [facility] Last Admin: 03/06/21 05:07 Dose: Not Given Documented by: Throat Lozenges (Benzocaine/Menthol 1 Lozenge) 1 lozenge PO PRN PRN PRN Reason: Sore Throat Tramadol HCl (Tramadol 50 Mg Tablet) 50 mg PO BID [facility]; Protocol Last Admin: 03/06/21 08:20 Dose: 50 mg Documented by: Tramadol HCl (Tramadol 50 Mg Tablet) 50 mg PO Q4HP PRN; Protocol PRN Reason: Pain Last Admin: 03/05/21 03:48 Dose: 50 mg Documented by: Vitamin D (Vitamin D3 400 Unit Tablet) 400 unit PO DAILY [facility] Last Admin: 03/06/21 08:20 Dose: 400 unit Documented by: Zolpidem Tartrate (Zolpidem 5 Mg Tablet) 5 mg PO HSP PRN PRN Reason: Insomnia Last Admin: 03/05/21 20:56 Dose: 5 mg Documented by: A/P Assessment and plan (1) History of hemiarthroplasty of right hip: Status: Acute Comment: POD 1 s/p right hip hemiarthroplasty 1. plan for discharge to SNF 2. follow up with [facility] in 2 weeks for staple removal and post op check 3. Walker for ambulation 4. pillow between legs when sleeping 5. ASA 81 mg BID for 30 days for DVT prophylaxis 6. medicine per hospitalists Time Spent With Patient Time: Total time spent is greater than 50% in coordination of care (as documented) at patient's floor/unit and/or counseling patient:
[2021-03-06] MEDS: FERROUS SULFATE 325 MG TABLET PO SCH ×2 (11:41→16:02)
[2021-03-06] MEDS: HYDROCODONE/APAP 7.5/325MG TABLET PO PRN (16:02)
--- NOTE | 2021-03-06 18:50 | EKG ---
[facility] Test Date: 2021-03-04 Pat Name: Corinne Crawford Department: ED Room: Gender: Female [employer]: LR : 1935 Requested By: Donavan Dela Cruz Order Number: [id number] Reading MD: Tima Quintanilla Measurements Intervals [place] Rate: 77 P: 66 MI: 168 QRS: 25 QRSD: 86 T: 64 QT: 404 QTc: 458 Interpretive Statements SINUS RHYTHM Unchanged from prior Electronically Signed On 03-06-2021 18:50:16 PDT by Tima Quintanilla /[email or web address]/[id number]
[2021-03-06] MEDS: hydrOXYzine 25 MG TABLET PO SCH (20:27)
[2021-03-06] MEDS: SENNOSIDES 1 TABLET PO SCH (20:28)
[2021-03-07] MEDS: traMADol 50 MG TABLET PO PRN (02:53)
[2021-03-07] MEDS: HYDROCODONE/APAP 7.5/325MG TABLET PO PRN ×2 (06:04→16:49)
[2021-03-07] MEDS: 0.9 % SODIUM CHLORIDE 10 ML SYRINGE IV SCH ×3 (06:05→20:12)
[2021-03-07] MEDS: INSULIN LISPRO 1 UNIT/0.01 ML UNIT SQ SCH ×4 (07:59→20:07)
[2021-03-07] MEDS: DOCUSATE SODIUM 100 MG CAPSULE PO SCH ×2 (08:15→20:08)
[2021-03-07] MEDS: MELOXICAM 7.5 MG TABLET PO SCH (08:15)
[2021-03-07] MEDS: PREGABALIN 25 MG CAPSULE PO SCH (08:15)
[2021-03-07] MEDS: CYANOCOBALAMIN (VITAMIN B-12) 2,500 MCG TAB.SUBL SL SCH (08:15)
[2021-03-07] MEDS: OMEPRAZOLE 20 MG CAPSULE PO SCH ×2 (08:15→16:27)
[2021-03-07] MEDS: FUROSEMIDE 40 MG TABLET PO SCH (08:15)
[2021-03-07] MEDS: LEVOTHYROXINE 50 MCG TABLET PO SCH (08:16)
[2021-03-07] MEDS: CLOPIDOGREL 75 MG TABLET PO SCH (08:16)
[2021-03-07] MEDS: traMADol 50 MG TABLET PO SCH ×2 (08:16→19:13)
[2021-03-07] MEDS: GEMFIBROZIL 600 MG TABLET PO SCH ×2 (08:16→16:27)
[2021-03-07] MEDS: ATENOLOL 50 MG TABLET PO SCH (08:16)
[2021-03-07] MEDS: POTASSIUM CHLORIDE 20 MEQ TABLET PO SCH (08:17)
[2021-03-07] MEDS: ENOXAPARIN 30 MG/0.3 ML SYRINGE SQ SCH ×2 (08:17→20:12)
[2021-03-07] MEDS: MAGNESIUM OXIDE 400 MG TABLET PO SCH (08:17)
[2021-03-07] MEDS: ASPIRIN 81 MG TAB.CHEW PO SCH (08:17)
[2021-03-07] MEDS: VITAMIN D3 400 UNIT TABLET PO SCH (08:17)
[2021-03-07 08:30] LABS: Basophils # (Auto) 0.02 K/mcL (0.00-0.30); Basophils % (Auto) 0.2 % (0.0-2.0); Eosinophils # (Auto) 0.29 K/mcL (0.00-0.70); Eosinophils % (Auto) 2.8 % (0.0-7.0); Lymphocytes # (Auto) 0.83 K/mcL (1.50-4.80); Lymphocytes % (Auto) 7.9 % (15.5-49.0); Mean Cell Volume 103.4 fL (80.0-100.0); Mean Platelet Volume 12.8 fL (7.4-10.4); Monocytes # (Auto) 0.35 K/mcL (0.10-0.90); Monocytes % (Auto) 3.3 % (1.0-12.0); Neutrophils % (Auto) 85.8 % (38.0-78.0); Platelet Count 189 K/mcL (140-440); Red Cell Distribution Width 13.2 % (11.5-14.5); WBC 10.5 K/mcL (4.5-11.0)
[2021-03-07 08:51] LABS: Prothrombin Time 23.5 sec (11.9-14.5)
[2021-03-07] MEDS: [UNRECOGNIZED DRUG - OTHER] PO SCH (09:57)
[2021-03-07] MEDS: OMEGA PO SCH (09:57)
[2021-03-07] MEDS: FEXOFENADINE 180 MG TABLET PO SCH (09:57)
--- NOTE | 2021-03-07 10:48 | Discharge Summary ---
Discharge Provider Provider Patient information: Note initiated : 03/07/21 at 10:44 am Service Date, if different from initiated Date: [] Patient: Corinne Crawford 85 y/o F admitted on 03/04/21 for fall. Chief Complaint: [right hip fracture] Date of admission: 03/04/21 16:01 Discharge date: 03/07/21 Primary care physician: WENDI Steen Consults: 03/04/21 Consult to Physician [CONS] Stat Comment: Consulting Provider: Henry Huber Reason For Exam: Physician to Consult Consult to Physician [CONS] Stat Comment: Consulting Provider: Wilfrido Mims Reason For Exam: Physician to Consult 03/04/21 16:11 Consult to Physician [CONS] Stat Comment: Consulting Provider: Henry Huber Reason For Exam: Physician to Consult 03/07/21 10:40 Consult to Physician [CONS] Routine Comment: snf referral Consulting Provider: [facility] Silvestre Reason For Exam: Physician to Consult Discharge Meds Discharge Medications Home Medications ergocalciferol (vitamin D2) 400 unit PO DAILY 10/07/15 [History Confirmed 03/04/21 Last Taken 03/08/20] omega-3 fatty acids-fish oil 1,000 mg PO DAILY 10/07/15 [History Confirmed 03/04/21 Last Taken 03/08/20] omeprazole 20 mg PO BIDAC 10/07/15 [History Confirmed 03/04/21 Last Taken 03/08/20] cyanocobalamin (vitamin B-12) 2,500 mg PO QDAY 11/12/18 [History Confirmed 03/04/21 Last Taken 03/08/20] melatonin 3 mg tablet 3 mg PO HS PRN 11/12/18 [History Confirmed 03/04/21 Last Taken 03/08/20] albuterol sulfate 90 mcg/actuation aerosol inhaler 2 puff INHALATION Q6H PRN #18 g 09/12/19 [Rx Confirmed 03/04/21 Last Taken Unknown] atenolol 50 mg tablet 50 mg PO DAILY #90 tab 08/17/20 [Rx Confirmed 03/04/21 Last Taken Unknown] fexofenadine 180 mg tablet 180 mg PO Q24H #30 tab 09/14/20 [Rx Confirmed 03/04/21 Last Taken Unknown] pregabalin 50 mg capsule 50 mg PO QDAY #30 cap 10/27/20 [Rx Confirmed 03/04/21 Last Taken Unknown] furosemide 40 mg tablet 20 mg PO QAM tab 11/05/20 [History Confirmed 03/04/21 Last Taken Unknown] gemfibrozil 600 mg tablet 600 mg PO BID #180 tab 11/08/20 [Rx Confirmed 03/04/21 Last Taken Unknown] levothyroxine 50 mcg tablet 50 mcg PO QDAY #90 tab 11/08/20 [Rx Confirmed 03/04/21 Last Taken Unknown] meclizine 12.5 mg tablet 12.5 mg PO BID #60 tab 11/30/20 [Rx Confirmed 03/04/21 Last Taken Unknown] meloxicam 7.5 mg tablet 7.5 mg PO QDAY #180 tab 12/07/20 [Rx Confirmed 03/04/21 Last Taken Unknown] clopidogrel 75 mg tablet 75 mg PO DAILY #30 tab 02/01/21 [Rx Confirmed 03/04/21 Last Taken Unknown] magnesium sulfate 100 mg capsule 100 mg PO QDAY 02/01/21 [History Confirmed 03/04/21 Last Taken Unknown] hydroxyzine HCl 25 mg tablet 25 mg PO QHS #30 tab 02/18/21 [Rx Confirmed 03/04/21 Last Taken Unknown] ferrous sulfate 325 mg (65 mg iron) tablet 325 mg PO BID #60 tab 02/23/21 [Rx Confirmed 03/04/21 Last Taken Unknown] potassium chloride 20 mEq tablet,extended release 20 meq PO QDAY #90 tab 02/23/21 [Rx Confirmed 03/04/21 Last Taken Unknown] aspirin 81 mg PO BID #60 cap 03/05/21 [Rx Last Taken Unknown] hydrocodone-acetaminophen 1 tab PO Q6H PRN #60 tab 03/05/21 [Rx Last Taken Unknown] tramadol See Rx Instructions .ROUTE .COMPLEX #10 tab 03/07/21 [Rx Last Taken Unknown] COURSE Hospital Course Hospital course: Patient was admitted on March 04 for right femoral neck fracture. Orthopedic surgeons Dr. Huber was consulted who performed right hip hemiarthroplasty on the next day. Patient had a uncomplicated course of recovery after her surgery and remained clinically stable. Physical and occupational therapist were consulted and evaluated patient and determined that [place] [facility] for continued rehab was indicated. Patient was accepted by a SNF on March 07, and is being discharged to the facility on that same day. All questions were answered prior to patient being physically discharged. Discharge diagnosis: right femoral neck fracture Time Spent with Patient Time attestation: Total time spent providing and/or coordinating discharge services: Patient was admitted on March 04 for right femoral neck fracture. Orthopedic surgeons Dr. Huber was consulted who performed right hip hemiarthroplasty on the next day. Patient had a uncomplicated course of recovery after her surgery and remained clinically stable. Physical and occupational therapist were consulted and evaluated patient and determined that [place] [facility] for continued rehab was indicated. Patient was accepted by a SNF on March 07, and is being discharged to the facility on that same day. All questions were answered prior to patient being physically discharged. EXAM Constitutional Vitals: Temp Pulse Resp BP Pulse Ox 36.1 C L 65 16 122/67 90 03/07/21 07:06 03/07/21 07:06 03/07/21 07:06 03/07/21 07:06 03/07/21 07:06 General appearance: cooperative and no acute distress Head Head exam: Present atraumatic and normocephalic Eye Eye exam: Present EOMI and PERRL ENT ENT exam: Present mucous membranes moist, normal exam and normal external ear exam Neck Neck exam: Present normal inspection; Absent lymphadenopathy, tenderness and thyromegaly Respiratory Respiratory exam: Absent accessory muscle use, respiratory distress and wheezes Cardiovascular Cardiovascular exam: Present normal rate and rhythm; Absent JVD GI/Abdominal GI/Abdominal exam: Present normal bowel sounds and soft; Absent organomegaly and tenderness Extremities Exam Extremities exam: Present normal capillary refill and tenderness; Absent full ROM and normal inspection Additional comments: Right lateral hip covered by surgical dressing Neurological Exam Neurological exam: Present alert, CN II-XII intact and oriented X3; Absent motor sensory deficit Psychiatric Psychiatric exam: Present normal affect and normal mood; Absent anxious and depr essed Skin Skin exam: Present dry and intact Discharge Data Data Completed and Pending Labs on day of discharge: Labs from last 24 hours 03/07/21 03/07/21 05:48 05:43 WBC 10.5 RBC 2.90 L Hgb 9.0 L Hct 30.0 L MCV 103.4 H MCH 31.0 MCHC 30.0 L RDW 13.2 Plt Count 189 MPV 12.8 H Neut % (Auto) 85.8 H Lymph % (Auto) 7.9 L [place] % (Auto) 3.3 Eos % (Auto) 2.8 Baso % (Auto) 0.2 Lymph # (Auto) 0.83 L [place] # (Auto) 0.35 Eos # (Auto) 0.29 Baso # (Auto) 0.02 Absolute Neutrophils 9.02 H PT 23.5 H INR 2.0 H Discharge Plan Patient/Caregiver Discharge Instructions Activity: increase activity as tolerated Diet: Consistent Carbohydrate Prescriptions: New hydrocodone-acetaminophen 7.5-325 mg tablet 1 tab PO Q6H PRN (Reason: pain) Qty: 60 RF: 0 aspirin 81 mg capsule 81 mg PO BID Qty: 60 RF: 0 Continued albuterol sulfate [ProAir HFA] 90 mcg/actuation HFA aerosol inhaler 2 puff INHALATION Q6H PRN (Reason: Dyspnea) Qty: 18 RF: 0 atenolol 50 mg tablet 50 mg PO DAILY Qty: 90 RF: 2 pregabalin 50 mg capsule 50 mg PO QDAY Qty: 30 RF: 2 furosemide [Lasix] 40 mg tablet 20 mg PO QAM RF: 0 gemfibrozil 600 mg tablet 600 mg PO BID Qty: 180 RF: 1 levothyroxine 50 mcg tablet 50 mcg PO QDAY Qty: 90 RF: 1 meloxicam 7.5 mg tablet 7.5 mg PO QDAY Qty: 180 RF: 2 clopidogrel 75 mg tablet 75 mg PO DAILY Qty: 30 RF: 2 hydroxyzine HCl 25 mg tablet 25 mg PO QHS Qty: 30 RF: 1 ferrous sulfate 325 mg (65 mg iron) tablet 325 mg PO BID Qty: 60 RF: 3 potassium chloride 20 mEq tablet extended release 20 meq PO QDAY Qty: 90 RF: 2 cyanocobalamin (vitamin B-12) 2,500 mg PO QDAY RF: 0 magnesium sulfate 100 mg capsule 100 mg PO QDAY RF: 0 melatonin 3 mg tablet 3 mg PO HS PRN (Reason: Sleep) RF: 0 fexofenadine [Chitra Allergy] 180 mg tablet 180 mg PO Q24H Qty: 30 RF: 4 meclizine 12.5 mg tablet 12.5 mg PO BID Qty: 60 RF: 1 ergocalciferol (vitamin D2) 400 UNIT tablet 400 unit PO DAILY RF: 0 omeprazole 20 MG capsule 20 mg PO BIDAC RF: 0 omega-3 fatty acids-fish oil 1 EACH capsule 1,000 mg PO DAILY RF: 0 tramadol 50 mg tablet See Rx Instructions .ROUTE .COMPLEX Qty: 10 RF: 0 Discontinued aspirin 81 MG tablet,chewable 81 mg PO DAILY RF: 0 Follow Up Plan Follow up with: Henry Huber MD [Physician] - Winsome Cordova ARNP [Primary Care Provider] - Patient Disposition: Xfer SNF Rehab Potential: Good I certify that the patient requires SNF services: Yes Overall status at discharge: patient is progressing back to baseline Discharge Orders: Discharge Order (Routine); Ordered 03/08/21 Ordered By: Henry Huber QUALITY VTE Deep Vein Thrombosis/Pulmonary Embolism Present on Admission: No
[2021-03-07] MEDS: FERROUS SULFATE 325 MG TABLET PO SCH ×2 (12:54→16:27)
[2021-03-07] MEDS: SENNOSIDES 1 TABLET PO SCH (20:08)
[2021-03-07] MEDS: hydrOXYzine 25 MG TABLET PO SCH (20:12)
[2021-03-08] MEDS: 0.9 % SODIUM CHLORIDE 10 ML SYRINGE IV SCH ×3 (05:34→22:21)
[2021-03-08] MEDS: HYDROCODONE/APAP 7.5/325MG TABLET PO PRN (07:15)
[2021-03-08] MEDS: LEVOTHYROXINE 50 MCG TABLET PO SCH (07:15)
[2021-03-08] MEDS: OMEPRAZOLE 20 MG CAPSULE PO SCH ×2 (07:15→16:51)
[2021-03-08] MEDS: GEMFIBROZIL 600 MG TABLET PO SCH ×2 (07:15→16:51)
[2021-03-08] MEDS: INSULIN LISPRO 1 UNIT/0.01 ML UNIT SQ SCH ×4 (07:20→22:43)
[2021-03-08 07:51] LABS: Hematocrit 28.1 % (34.1-44.9); Hemoglobin 9.1 g/dL (11.2-15.7)
[2021-03-08 08:42] LABS: INR 2.7 (0.9-1.1); Prothrombin Time 29.5 sec (11.9-14.5)
[2021-03-08] MEDS: MAGNESIUM OXIDE 400 MG TABLET PO SCH (09:11)
[2021-03-08] MEDS: DOCUSATE SODIUM 100 MG CAPSULE PO SCH ×2 (09:11→20:04)
[2021-03-08] MEDS: CYANOCOBALAMIN (VITAMIN B-12) 2,500 MCG TAB.SUBL SL SCH (09:11)
[2021-03-08] MEDS: VITAMIN D3 400 UNIT TABLET PO SCH (09:11)
[2021-03-08] MEDS: FUROSEMIDE 40 MG TABLET PO SCH (09:12)
[2021-03-08] MEDS: MELOXICAM 7.5 MG TABLET PO SCH (09:12)
[2021-03-08] MEDS: ATENOLOL 50 MG TABLET PO SCH (09:12)
[2021-03-08] MEDS: FISH OIL 1,000 MG CAPSULE PO SCH (09:13)
[2021-03-08] MEDS: PREGABALIN 25 MG CAPSULE PO SCH (09:13)
[2021-03-08] MEDS: traMADol 50 MG TABLET PO SCH ×2 (09:13→20:03)
[2021-03-08] MEDS: CLOPIDOGREL 75 MG TABLET PO SCH (09:14)
[2021-03-08] MEDS: ASPIRIN 81 MG TAB.CHEW PO SCH (09:14)
[2021-03-08] MEDS: FEXOFENADINE 180 MG TABLET PO SCH (09:14)
[2021-03-08] MEDS: ENOXAPARIN 30 MG/0.3 ML SYRINGE SQ SCH ×2 (09:15→20:04)
[2021-03-08] MEDS: POTASSIUM CHLORIDE 20 MEQ TABLET PO SCH (09:18)
[2021-03-08] MEDS: FERROUS SULFATE 325 MG TABLET PO SCH ×2 (11:52→16:51)
[2021-03-08] MEDS: ACETAMINOPHEN 325 MG TABLET PO PRN (11:59)
[2021-03-08] MEDS: hydrOXYzine 25 MG TABLET PO SCH (20:03)
[2021-03-08] MEDS: SENNOSIDES 1 TABLET PO SCH (20:04)
--- NOTE | 2021-03-08 20:22 | Internal Med Progress Note ---
SUBJECTIVE Subjective Patient information: Note initiated : 03/08/21 at 8:20 pm Service Date, if different from initiated Date: [] Patient: Corinne Crawford 85 y/o F admitted on 03/04/21 for fall. Chief Complaint: [] Interval history: History of present illness: Ms. Crawford is a 85 year old F history of type 2 diabetes mellitus, essential hypertension, mixed dyslipidemia, COPD, presenting with fall with resultant right hip fractures. There was no prior similar episode. Today when she was waiting to be picked up by family, she lost her balance with her cane and fell with landing on her right body. She did not pass out, no loss of consciousness, no chest pain or palpitations, no shortness of breath. No confusion after the fall. EMS was called to send patients to our ED for further evaluations. Patient is currently committing of 9 of 10, sharp, constant pain localized in her right lateral hip. Hip x-ray showed right hip fracture with mild angulation and impaction. 03/05: s/p right hip hemiarthroplasty by Dr. Huber earlier today. Denies right hip pain. Denies SOB. Denies fever or chills. Denies nausea or vomiting. Has not have bowel movement yet. 03/06: s/p right hip hemiarthroplasty by Dr. Huber on 03/05. Denies right hip pain. Denies SOB. Denies fever or chills. Denies nausea or vomiting. Good appetite and passed a small bowel movement earlier today. 03/08: stable, awaiting placement Physical exam Head: Atraumatic, normal inspection. Eyes: normal appearance, no scleral icterus. Neck: full ROM Respiratory: no respiratory distress. Cardiovascular: normal rate and rhythm, S1, S2. GI/Abdominal: soft, nontender, no guarding. Extremities: full range of motion, nontender. Neurological: CN II-XII intact, intact motor, intact sensation. Psychiatric: normal mood. Skin: warm, normal color Constitutional Vitals: Vital Signs Temp Pulse Resp BP Pulse Ox 98.0 F 67 20 174/78 94 03/08/21 16:00 03/08/21 16:00 03/08/21 16:00 03/08/21 16:00 03/08/21 16:00 Period Temp Pulse Resp BP Sys/Mora Pulse Ox Last 24 Hr 96.9 F-98.0 F 63-68 16-20 138-174/68-78 92-94 Intake and Output 03/08/21 03/08/21 03/08/21 05:59 13:59 21:59 Intake Total 400 1260 Balance 400 1260 Intake & Output: Intake & Output 03/08/21 03/08/21 03/08/21 05:59 13:59 21:59 Intake Total 400 1260 Balance 400 1260 Intake: Oral 400 1260 Other: Meal Breakfast Percent of Meal Consumed 100% Feeding Ability Independent Urine Color Yellow Brown Stool Size Moderate Stool Color Brown Stool Consistency Soft # Voids 1 1 6 # Bowel Movements 1 1 OBJ DATA Labs CBC & Chem 7: 03/08/21 06:25 03/04/21 14:27 Labs: Abnormal Lab Results 03/08/21 03/08/21 03/07/21 06:25 06:25 05:48 WBC RBC Hgb 9.1 L Hct 28.1 L MCV MCHC MPV Neut % (Auto) Lymph % (Auto) Lymph # (Auto) Absolute Neutrophils PT 29.5 H 23.5 H INR 2.7 H 2.0 H 03/07/21 03/06/21 03/06/21 05:43 05:53 05:52 WBC 13.0 H RBC 2.90 L 2.90 L Hgb 9.0 L 9.5 L Hct 30.0 L 29.9 L MCV 103.4 H 103.1 H MCHC 30.0 L MPV 12.8 H 12.8 H Neut % (Auto) 85.8 H 91.8 H Lymph % (Auto) 7.9 L 5.0 L Lymph # (Auto) 0.83 L 0.65 L Absolute Neutrophils 9.02 H 11.93 H PT 22.1 H INR 1.8 H Meds: Medications Acetaminophen (Acetaminophen 325 Mg Tablet) 650 mg PO Q6HP PRN; Protocol PRN Reason: Per Pain Protocol/Fever > 101 Last Admin: 03/08/21 11:59 Dose: 650 mg Documented by: Albuterol Sulfate (Albuterol Sulfate 200 Puff Inhaler) 2 puff INH Q6H PRN PRN Reason: Dyspnea Aspirin (Aspirin 81 Mg Tab.Chew) 81 mg PO DAILY PATY Last Admin: 03/08/21 09:14 Dose: 81 mg Documented by: Atenolol (Atenolol 50 Mg Tablet) 50 mg PO DAILY [facility] Last Admin: 03/08/21 09:12 Dose: 50 mg Documented by: Clopidogrel Bisulfate (Clopidogrel 75 Mg Tablet) 75 mg PO DAILY [facility] Last Admin: 03/08/21 09:14 Dose: 75 mg Documented by: Cyanocobalamin (Cyanocobalamin (Vitamin B-12) 2,500 Mcg Tab.Subl) 2,500 mcg SL QDAY [facility] Last Admin: 03/08/21 09:11 Dose: 2,500 mcg Documented by: Dextrose (Dextrose 50% 50 Ml Vial) 0 ml IV UD PRN PRN Reason: Hypoglycemia Diagnostic Test (Pha) (Accu-Chek 1 Each Strip) 1 each FS ACHS [facility] Last Admin: 03/08/21 20:04 Dose: 1 each Documented by: Docusate Sodium (Docusate Sodium 100 Mg Capsule) 100 mg PO BID [facility] Last Admin: 03/08/21 20:04 Dose: Not Given Documented by: Enoxaparin Sodium (Enoxaparin 30 Mg/0.3 Ml Syringe) 30 mg SQ BID [facility] Last Admin: 03/08/21 20:04 Dose: 30 mg Documented by: Ferrous Sulfate (Ferrous Sulfate 325 Mg Tablet) 325 mg PO BID@1200,1730 [facility] Last Admin: 03/08/21 16:51 Dose: 325 mg Documented by: Fexofenadine HCl (Fexofenadine 180 Mg Tablet) 180 mg PO Q24H [facility] Last Admin: 03/08/21 09:14 Dose: Not Given Documented by: Fish Oil (Fish Oil 1,000 Mg Capsule) 1,000 mg PO DAILY [facility] Last Admin: 03/08/21 09:13 Dose: 1,000 mg Documented by: Furosemide (Furosemide 40 Mg Tablet) 20 mg PO QAM [facility] Last Admin: 03/08/21 09:12 Dose: 20 mg Documented by: Gemfibrozil (Gemfibrozil 600 Mg Tablet) 600 mg PO BIDAC [facility] Last Admin: 03/08/21 16:51 Dose: 600 mg Documented by: Glucose (Dextrose 31 Gm Oral.Susp) 15 gm PO PRN PRN PRN Reason: Hypoglycemia Hydralazine HCl (Hydralazine 20 Mg/Ml Vial) 10 mg IV Q4-6HP PRN PRN Reason: Hypertension Hydroxyzine HCl (Hydroxyzine 25 Mg Tablet) 25 mg PO QHS [facility] Last Admin: 03/08/21 20:03 Dose: 25 mg Documented by: Insulin Human Lispro (Insulin Lispro 1 Unit/0.01 Ml Unit) 0 unit SQ [facility]; Protocol Last Admin: 03/08/21 16:51 Dose: 1 unit Documented by: Levothyroxine Sodium ([facility]othy[facility] 50 Mcg Tablet) [facility] Last Admin: 03/08/21 07:15 Dose: 50 mcg Documented by: Magnesium Hydroxide (Magnesium Hydroxide 30 Ml Oral.Susp) 30 ml PO BIDP PRN PRN Reason: Constipation Magnesium Oxide (Magnesium Oxide 400 Mg Tablet) 200 mg PO QDAY [facility] Last Admin: 03/08/21 09:11 Dose: 200 mg Documented by: Melatonin (Melatonin 3 Mg Tablet) 3 mg PO HSP PRN PRN Reason: Sleep Meloxicam (Meloxicam 7.5 Mg Tablet) 7.5 mg PO QDAY [facility]; Protocol Last Admin: 03/08/21 09:12 Dose: 7.5 mg Documented by: Methocarbamol (Methocarbamol 1,000 Mg/10 Ml Vial) 750 mg IV Q6HP PRN PRN Reason: Muscle Spasm Morphine Sulfate (Morphine 4 Mg/Ml Vial) 4 mg IV Q4HP PRN; Protocol PRN Reason: Per Pain Protocol Last Admin: 03/05/21 02:15 Dose: 4 mg Documented by: Naloxone HCl (Naloxone Hcl 0.4 Mg/Ml Vial) 0.1 mg IV Q2MIN PRN PRN Reason: Opiate Reversal Omeprazole (Omeprazole 20 Mg Capsule) 20 mg PO BIDAC [facility] Last Admin: 03/08/21 16:51 Dose: 20 mg Documented by: Ondansetron HCl (Ondansetron 4 Mg/2 Ml Vial) 4 mg IV Q6HP PRN PRN Reason: Nausea And Vomiting Polyethylene Glycol (Polyethylene Glycol 3350 17 Gm Packet) 17 gm PO DAILYP PRN PRN Reason: Constipation Potassium Chloride (Potassium Chloride 20 Meq Tablet) 20 meq PO [facility] Last Admin: 03/08/21 09:18 Dose: 20 meq Documented by: Pregabalin (Pregabalin 25 Mg Capsule) 50 mg PO QDAY [facility] Last Admin: 03/08/21 09:13 Dose: 50 mg Documented by: Scopolamine (Scopolamine 1 Patch Patch) 1 patch TOPICAL PREOP PRN PRN Reason: Nausea And Vomiting Senna (Sennosides 1 Tablet) 2 tab PO HS [facility] Last Admin: 03/08/21 20:04 Dose: Not Given Documented by: Sodium Chloride (0.9 % Sodium Chloride 10 Ml Syringe) 10 ml IV Q8 [facility] Last Admin: 03/08/21 14:15 Dose: Not Given Documented by: Throat Lozenges (Benzocaine/Menthol 1 Lozenge) 1 lozenge PO PRN PRN PRN Reason: Sore Throat Tramadol HCl (Tramadol 50 Mg Tablet) 50 mg PO BID [facility]; Protocol Last Admin: 03/08/21 20:03 Dose: 50 mg Documented by: Vitamin D (Vitamin D3 400 Unit Tablet) 400 unit PO DAILY [facility] Last Admin: 03/08/21 09:11 Dose: 400 unit Documented by: Zolpidem Tartrate (Zolpidem 5 Mg Tablet) 5 mg PO HSP PRN PRN Reason: Insomnia Last Admin: 03/05/21 20:56 Dose: 5 mg Documented by: A/P Narrative A/P Narrative: Assessment: Ms. Crawford is a 85 year old F history of type 2 diabetes mellitus, essential hypertension, mixed dyslipidemia, COPD, presenting with fall with resultant right hip fracture now s/p right hip hemiarthroplasty on 03/04. Plan -Working on placement. Time Spent With Patient Time: Total time spent is greater than 50% in coordination of care (as documented) at patient's floor/unit and/or counseling patient: QUALITY Stroke Symptom Onset Unknown: No VTE Deep Vein Thrombosis/Pulmonary Embolism Present on Admission: No
[2021-03-09] MEDS: ACETAMINOPHEN 325 MG TABLET PO PRN (05:55)
[2021-03-09] MEDS: 0.9 % SODIUM CHLORIDE 10 ML SYRINGE IV SCH (05:57)
[2021-03-09] MEDS: LEVOTHYROXINE 50 MCG TABLET PO SCH (07:08)
[2021-03-09] MEDS: OMEPRAZOLE 20 MG CAPSULE PO SCH (07:08)
[2021-03-09] MEDS: GEMFIBROZIL 600 MG TABLET PO SCH (07:08)
[2021-03-09] MEDS: INSULIN LISPRO 1 UNIT/0.01 ML UNIT SQ SCH ×2 (07:11→11:54)
[2021-03-09] MEDS: CYANOCOBALAMIN (VITAMIN B-12) 2,500 MCG TAB.SUBL SL SCH (08:34)
[2021-03-09] MEDS: ENOXAPARIN 30 MG/0.3 ML SYRINGE SQ SCH (08:34)
[2021-03-09] MEDS: PREGABALIN 25 MG CAPSULE PO SCH (08:34)
[2021-03-09] MEDS: ATENOLOL 50 MG TABLET PO SCH (08:35)
[2021-03-09] MEDS: VITAMIN D3 400 UNIT TABLET PO SCH (08:35)
[2021-03-09] MEDS: POTASSIUM CHLORIDE 20 MEQ TABLET PO SCH (08:35)
[2021-03-09] MEDS: MELOXICAM 7.5 MG TABLET PO SCH (08:35)
[2021-03-09] MEDS: FUROSEMIDE 40 MG TABLET PO SCH (08:35)
[2021-03-09] MEDS: CLOPIDOGREL 75 MG TABLET PO SCH (08:35)
[2021-03-09] MEDS: MAGNESIUM OXIDE 400 MG TABLET PO SCH (08:36)
[2021-03-09] MEDS: traMADol 50 MG TABLET PO SCH (08:36)
[2021-03-09] MEDS: FISH OIL 1,000 MG CAPSULE PO SCH (08:36)
[2021-03-09] MEDS: DOCUSATE SODIUM 100 MG CAPSULE PO SCH (08:37)
[2021-03-09] MEDS: ASPIRIN 81 MG TAB.CHEW PO SCH (09:10)
[2021-03-09 09:18] LABS: INR 2.9 (0.9-1.1); Prothrombin Time 31.4 sec (11.9-14.5)
[2021-03-09] MEDS: FEXOFENADINE 180 MG TABLET PO SCH (09:25)
--- NOTE | 2021-03-09 11:33 | Discharge Summary ---
Discharge Provider Provider Patient information: Note initiated : 03/09/21 at 11:32 am Service Date, if different from initiated Date: [] Patient: Corinne Crawford 85 y/o F admitted on 03/04/21 for fall. Chief Complaint: [] Date of admission: 03/04/21 16:01 Discharge date: 03/09/21 Primary care physician: WENDI Steen Consults: 03/04/21 Consult to Physician [CONS] Stat Comment: Consulting Provider: Henry Huber Reason For Exam: Physician to Consult Consult to Physician [CONS] Stat Comment: Consulting Provider: Wilfrido Mims Reason For Exam: Physician to Consult 03/04/21 16:11 Consult to Physician [CONS] Stat Comment: Consulting Provider: Henry Huber Reason For Exam: Physician to Consult 03/07/21 10:40 Consult to Physician [CONS] Routine Comment: snf referral Consulting Provider: [facility] Reason For Exam: Physician to Consult Discharge Meds Discharge Medications Home Medications ergocalciferol (vitamin D2) 400 unit PO DAILY 10/07/15 [History Confirmed 0 03/04/21 Last Taken 03/08/20] omega-3 fatty acids-fish oil 1,000 mg PO DAILY 10/07/15 [History Confirmed 03/04/21 Last Taken 03/08/20] omeprazole 20 mg PO BIDAC 10/07/15 [History Confirmed 03/04/21 Last Taken 03/08/20] cyanocobalamin (vitamin B-12) 2,500 mg PO QDAY 11/12/18 [History Confirmed 03/04/21 Last Taken 03/08/20] melatonin 3 mg tablet 3 mg PO HS PRN 11/12/18 [History Confirmed 03/04/21 Last Taken 03/08/20] albuterol sulfate 90 mcg/actuation aerosol inhaler 2 puff INHALATION Q6H PRN #18 g 09/12/19 [Rx Confirmed 03/04/21 Last Taken Unknown] atenolol 50 mg tablet 50 mg PO DAILY #90 tab 08/17/20 [Rx Confirmed 03/04/21 Last Taken Unknown] fexofenadine 180 mg tablet 180 mg PO Q24H #30 tab 09/14/20 [Rx Confirmed 03/04/21 Last Taken Unknown] pregabalin 50 mg capsule 50 mg PO QDAY #30 cap 10/27/20 [Rx Confirmed 03/04/21 Last Taken Unknown] furosemide 40 mg tablet 20 mg PO QAM tab 11/05/20 [History Confirmed 03/04/21 Last Taken Unknown] gemfibrozil 600 mg tablet 600 mg PO BID #180 tab 11/08/20 [Rx Confirmed 03/04/21 Last Taken Unknown] levothyroxine 50 mcg tablet 50 mcg PO QDAY #90 tab 11/08/20 [Rx Confirmed 03/04/21 Last Taken Unknown] meclizine 12.5 mg tablet 12.5 mg PO BID #60 tab 11/30/20 [Rx Confirmed 03/04/21 Last Taken Unknown] meloxicam 7.5 mg tablet 7.5 mg PO QDAY #180 tab 12/07/20 [Rx Confirmed 03/04/21 Last Taken Unknown] clopidogrel 75 mg tablet 75 mg PO DAILY #30 tab 02/01/21 [Rx Confirmed 03/04/21 Last Taken Unknown] magnesium sulfate 100 mg capsule 100 mg PO QDAY 02/01/21 [History Confirmed 03/04/21 Last Taken Unknown] hydroxyzine HCl 25 mg tablet 25 mg PO QHS #30 tab 02/18/21 [Rx Confirmed 03/04/21 Last Taken Unknown] ferrous sulfate 325 mg (65 mg iron) tablet 325 mg PO BID #60 tab 02/23/21 [Rx Confirmed 03/04/21 Last Taken Unknown] potassium chloride 20 mEq tablet,extended release 20 meq PO QDAY #90 tab 02/23/21 [Rx Confirmed 03/04/21 Last Taken Unknown] aspirin 81 mg PO BID #60 cap 03/05/21 [Rx Last Taken Unknown] hydrocodone-acetaminophen 1 tab PO Q6H PRN #60 tab 03/05/21 [Rx Last Taken Unknown] tramadol See Rx Instructions .ROUTE .COMPLEX #10 tab 03/07/21 [Rx Last Taken Unknown] COURSE Hospital Course Hospital course: Ms. Crawford is a 85 year old F history of type 2 diabetes mellitus, essential hypertension, mixed dyslipidemia, COPD, presenting with fall with resultant right hip fractures. There was no prior similar episode. Today when she was waiting to be picked up by family, she lost her balance with her cane and fell with landing on her right body. She did not pass out, no loss of consciousness, no chest pain or palpitations, no shortness of breath. No confusion after the fall. EMS was called to send patients to our ED for further evaluations. Patient is currently committing of 9 of 10, sharp, constant pain localized in her right lateral hip. Hip x-ray showed right hip fracture with mild angulation and impaction. 03/05: s/p right hip hemiarthroplasty by Dr. Huber earlier today. Denies right hip pain. Denies SOB. Denies fever or chills. Denies nausea or vomiting. Has not have bowel movement yet. 03/06: s/p right hip hemiarthroplasty by Dr. Huber on 03/05. Denies right hip pain. Denies SOB. Denies fever or chills. Denies nausea or vomiting. Good appetite and passed a small bowel movement earlier today. 03/08: stable, awaiting placement 03/09: discharged to SNF Physical exam Head: Atraumatic, normal inspection. Eyes: normal appearance, no scleral icterus. Neck: full ROM Respiratory: no respiratory distress. Cardiovascular: normal rate and rhythm, S1, S2. GI/Abdominal: soft, nontender, no guarding. Extremities: full range of motion, nontender. Neurological: CN II-XII intact, intact motor, intact sensation. Psychiatric: normal mood. Skin: warm, normal color Discharge diagnosis: Hip fracture Time Spent with Patient Time attestation: Total time spent providing and/or coordinating discharge services: EXAM Constitutional Vitals: Temp Pulse Resp BP Pulse Ox 97.2 F 85 16 187/74 95 03/09/21 08:00 03/09/21 08:00 03/09/21 08:00 03/09/21 08:00 03/09/21 08:00 Discharge Data Data Completed and Pending Labs on day of discharge: Labs from last 24 hours 03/09/21 06:29 PT 31.4 H INR 2.9 H Discharge Plan Patient/Caregiver Discharge Instructions Activity: increase activity as tolerated Diet: Consistent Carbohydrate Prescriptions: New hydrocodone-acetaminophen 7.5-325 mg tablet 1 tab PO Q6H PRN (Reason: pain) Qty: 60 RF: 0 aspirin 81 mg capsule 81 mg PO BID Qty: 60 RF: 0 Continued albuterol sulfate [ProAir HFA] 90 mcg/actuation HFA aerosol inhaler 2 puff INHALATION Q6H PRN (Reason: Dyspnea) Qty: 18 RF: 0 atenolol 50 mg tablet 50 mg PO DAILY Qty: 90 RF: 2 pregabalin 50 mg capsule 50 mg PO QDAY Qty: 30 RF: 2 furosemide [Lasix] 40 mg tablet 20 mg PO QAM RF: 0 gemfibrozil 600 mg tablet 600 mg PO BID Qty: 180 RF: 1 levothyroxine 50 mcg tablet 50 mcg PO QDAY Qty: 90 RF: 1 meloxicam 7.5 mg tablet 7.5 mg PO QDAY Qty: 180 RF: 2 clopidogrel 75 mg tablet 75 mg PO DAILY Qty: 30 RF: 2 hydroxyzine HCl 25 mg tablet 25 mg PO QHS Qty: 30 RF: 1 ferrous sulfate 325 mg (65 mg iron) tablet 325 mg PO BID Qty: 60 RF: 3 potassium chloride 20 mEq tablet extended release 20 meq PO QDAY Qty: 90 RF: 2 cyanocobalamin (vitamin B-12) 2,500 mg PO QDAY RF: 0 magnesium sulfate 100 mg capsule 100 mg PO QDAY RF: 0 melatonin 3 mg tablet 3 mg PO HS PRN (Reason: Sleep) RF: 0 fexofenadine [Chitra Allergy] 180 mg tablet 180 mg PO Q24H Qty: 30 RF: 4 meclizine 12.5 mg tablet 12.5 mg PO BID Qty: 60 RF: 1 ergocalciferol (vitamin D2) 400 UNIT tablet 400 unit PO DAILY RF: 0 omeprazole 20 MG capsule 20 mg PO BIDAC RF: 0 omega-3 fatty acids-fish oil 1 EACH capsule 1,000 mg PO DAILY RF: 0 tramadol 50 mg tablet See Rx Instructions .ROUTE .COMPLEX Qty: 10 RF: 0 Discontinued aspirin 81 MG tablet,chewable 81 mg PO DAILY RF: 0 Follow Up Plan Follow up with: Henry Huber MD [Physician] - 03/16/21 9:20 am (Check in at 9:20 for your appointment.) Winsome Cordova ARNP [Primary Care Provider] - Patient Disposition: Xfer SNF Rehab Potential: Good I certify that the patient requires SNF services: Yes Overall status at discharge: patient is progressing back to baseline Discharge Orders: Discharge Order (Routine); Ordered 03/08/21 Ordered By: Henry Huber QUALITY VTE Deep Vein Thrombosis/Pulmonary Embolism Present on Admission: No
[2021-03-09] MEDS: FERROUS SULFATE 325 MG TABLET PO SCH (11:51)
== END 2021-03-09 12:36 | DRG 522 ==
LOC: ED 12:11 → MEDSUR 16:01
PROVIDERS: ADMIT Internal Medicine; ATTEND Internal Medicine

== ENCOUNTER 2021-03-29 17:53 | Inpatient (IN) ==
[2021-03-29] MEDS ORDERED: 0.9 % SODIUM CHLORIDE 500 ML IV ONE (18:14)
[2021-03-29] MEDS ORDERED: morphine 4 MG/ML VIAL IV ONE ×3 (18:14→20:50)
[2021-03-29] MEDS ORDERED: ONDANSETRON 4 MG/2 ML VIAL IV ONE (18:14)
--- NOTE | 2021-03-29 18:19 | Emergency Department Note ---
Lower Extremity Injury HPI General Chief Complaint: Extremity Injury, Lower Stated Complaint: right hip pain Time Seen by Provider: 03/29/21 18:14 Source: patient and EMS Mode of arrival: EMS History of Present Illness HPI Narrative: Narrative: 85-year-old female presented to the ED for acute right hip pain. She was ambulating to the bathroom with assistance of her family member when her leg simply gave out from under her and she fell landing on her right hip and then fell backwards hitting the back of her head. No LOC. Patient denies headache, neck pain, thoracic pain abdominal pain or pain or weakness in her upper extremities or left lower extremity. Only complaint is proximal right leg/hip pain. She is concerned because she recently had a femur or hip repair of the right lower extremity done with Dr. Huber. She takes a spirin Plavix she reports. Related Data Home Medications Medication Instructions Recorded Confirmed ergocalciferol (vitamin D2) 400 unit PO DAILY 10/07/15 03/04/21 omega-3 fatty acids-fish oil 1,000 mg PO DAILY 10/07/15 03/04/21 omeprazole 20 mg PO BIDAC 10/07/15 03/04/21 cyanocobalamin (vitamin B-12) 2,500 mg PO QDAY 11/12/18 03/04/21 melatonin 3 mg tablet 3 mg PO HS PRN 11/12/18 03/04/21 furosemide 40 mg tablet 20 mg PO QAM tab 11/05/20 03/04/21 magnesium sulfate 100 mg capsule 100 mg PO QDAY 02/01/21 03/04/21 Previous Rx's Medication Instructions Recorded albuterol sulfate 90 mcg/actuation 2 puff INHALATION Q6H PRN #18 g 09/12/19 aerosol inhaler atenolol 50 mg tablet 50 mg PO DAILY #90 tab 08/17/20 fexofenadine 180 mg tablet 180 mg PO Q24H #30 tab 09/14/20 pregabalin 50 mg capsule 50 mg PO QDAY #30 cap 10/27/20 gemfibrozil 600 mg tablet 600 mg PO BID #180 tab 11/08/20 levothyroxine 50 mcg tablet 50 mcg PO QDAY #90 tab 11/08/20 meclizine 12.5 mg tablet 12.5 mg PO BID #60 tab 11/30/20 meloxicam 7.5 mg tablet 7.5 mg PO QDAY #180 tab 12/07/20 clopidogrel 75 mg tablet 75 mg PO DAILY #30 tab 02/01/21 hydroxyzine HCl 25 mg tablet 25 mg PO QHS #30 tab 02/18/21 ferrous sulfate 325 mg (65 mg 325 mg PO BID #60 tab 02/23/21 iron) tablet potassium chloride 20 mEq 20 meq PO QDAY #90 tab 02/23/21 tablet,extended release aspirin 81 mg PO BID #60 cap 03/05/21 hydrocodone-acetaminophen 1 tab PO Q6H PRN #60 tab 03/05/21 tramadol 50 mg tablet 50 mg PO BID #60 tab 03/28/21 Allergies Allergy/AdvReac Type Severity Reaction Status Date / Time No Known Drug Allergies Allergy Unverified 03/07/21 07:14 Review of Systems ROS ROS Narrative: Narrative: At least 10 systems reviewed and otherwise acutely negative except as in the HPI PFSH Narrative Patient History Narrative: Narrative: Medical/Surgical/Family History All Active Problems (Updated 03/29/21 @ 19:31 by Dieudonne Gabriel DO) Periprosthetic fracture around internal prosthetic hip joint (Acute) History of hemiarthroplasty of right hip (Acute) Anemia, hyperchromic (Acute) Closed hip fracture (Acute) Anemia due to stage 3b chronic kidney disease (Acute) Localized edema due to fluid overload (Chronic) Chronic kidney disease (CKD) stage G3b/A1, moderately decreased glomerular filtration rate (GFR) between 30-44 mL/min/1.73 square meter and albuminuria creatinine ratio less than 30 mg/g (Chronic) Renal insufficiency (Acute) Back pain (Chronic) DMII (diabetes mellitus, type 2) (Chronic) Hypertension, essential (Chronic) Malignant melanoma (Chronic) PVD (peripheral vascular disease) (Chronic) Renal calculi (Chronic 06/26/14) Tachycardia (Chronic) Urethral caruncle (Chronic) Urge incontinence (Chronic 06/11/14) Urinary frequency (Chronic 06/11/14) History of UTI (Chronic) Arthritis (Chronic) Muscle pain (Chronic) Hyperlipidemia (Chronic) Insomnia (Chronic) Joint pain (Chronic) History of tobacco use (Chronic) Acute gastritis without bleeding (Chronic) GERD (gastroesophageal reflux disease) (Chronic) Incomplete emptying of bladder (Chronic) Cardiac murmur (Chronic) Hypertriglyceridemia (Chronic) Abnormal abdominal ultrasound (Chronic) COPD (chronic obstructive pulmonary disease) (Chronic) Bipolar 1 disorder (Chronic) Carotid artery stenosis (Chronic) COPD exacerbation (Acute) BMI 27.0-27.9,adult (Chronic) Diabetic neuropathy (Chronic) Diabetic foot ulcer (Chronic) SOB (shortness of breath) (Chronic) Pneumonia (Chronic) Dysuria (Chronic) Cough (Chronic) Anemia, iron deficiency (Chronic) Dizziness (Chronic) UTI (urinary tract infection) (Chronic) Dysphagia (Chronic) Plantar fasciitis, bilateral (Chronic) Hypomagnesemia (Chronic) Hypokalemia (Chronic) Encounter for therapeutic drug level monitoring (Chronic) Indigestion (Chronic) Allergies (Chronic) Diabetic eye exam (Chronic 11/30/17) Diarrhea (Acute) Pedal edema (Acute) History of surgery (Chronic) Low back pain (Chronic) Bilateral ankle pain (Chronic) Diabetes (Chronic) Hypertension (Chronic) Hypothyroidism (Chronic) Hypomagnesemia (Acute) Hematoma (Acute) Mobility impaired (Acute) Allergies (Acute) Anemia (Acute) Vertigo (Acute) Medical History (Updated 03/29/21 @ 19:31 by Dieudonne Gabriel DO) Abnormal abdominal ultrasound Allergies Anemia, iron deficiency Anemia, iron deficiency Arthritis Back pain Bilateral ankle pain Bipolar 1 disorder BMI 27.0-27.9,adult Cardiac murmur Carotid artery stenosis Angiography by Dr. 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 Diabetic foot ulcer Diabetic neuropathy Dizziness Dizziness DMII (diabetes mellitus, type 2) Controlled w/ neurologic complications Dysphagia Dysphagia Dysuria (06/11/14) Dysuria Encounter for therapeutic drug level monitoring GERD (gastroesophageal reflux disease) Gross hematuria (06/11/14) Hematuria History of tobacco use History of UTI Hyperlipidemia Hypertension Hypertension, essential Hypertriglyceridemia Hypokalemia Hypokalemia Hypomagnesemia Hypomagnesemia Hypothyroidism Incomplete emptying of bladder Indigestion Insomnia Joint pain Low back pain Malignant melanoma Muscle pain Pelvic pain Plantar fasciitis, bilateral Plantar fasciitis, bilateral Pneumonia Pneumonia PVD (peripheral vascular disease) Renal calculi (06/26/14) Right middle lobe pneumonia SOB (shortness of breath) SOB (shortness of breath) Tachycardia Urethral caruncle Urge incontinence (06/11/14) Urinary frequency (06/11/14) UTI (urinary tract infection) UTI (urinary tract infection) Vertigo Surgical History H/O colonoscopy (~2010) Dr. Jaquez H/O gastric bypass (~1979) History of back surgery (~1971) History of bunionectomy Child Center Assistant Dr Dowell- zack and toenail removed History of cholecystectomy (04/08/13) History of open reduction and internal fixation (ORIF) procedure (2014) Arm fracture History of surgery Caudal NAT #2 w/o sed Caudal NAT w/o sed Caudal NAT w/o sed Caudal NAT #1 w/o sed Hx of appendectomy (~1949) Family History Unknown Arthritis Sister , at age 58 Breast cancer Family/Other Cancer Uncles-2 Family/Other Cancer Aunt Mother , 71 years Diabetes Hypertension, essential Heart attack Father , 72 years Cancer Stomach cancer Brother H/O heart bypass surgery Social History Smoking Status: Former smoker Alcohol Intake Frequency: a few times a week Substance Use: does not use Exam Narrative Narrative: Narrative: Constitutional: normally developed, no acute distress . Head: Normocephalic, atraumatic, Eyes: No Icterus, ENT: Moist mucus membranes, Neck: Supple, no midline tenderness Cardiac: Normal heart sounds, palpable radial and dorsalis pedis pulses, trace peripheral edema Pulmonary: Normal respiratory effort. Breath sounds clear, no wheeze, rhonchi, rales, Gastrointestinal: Abdomen soft, non-distended, non-tender, pelvis stable Musculoskeletal: No gross deformities, well perfused. Right lower extremity is shortened externally rotated although distally she is neurovascularly intact, no focal tenderness at the foot ankle or knee. Left lower extremity unremarkable. Does have positive logroll test on the right Skin: warm, dry Neuro: Alert and oriented. Course Vital Signs Vital signs: Vital Signs Temperature 36.1 C 03/29/21 18:03 Pulse Rate 65 03/29/21 18:03 Respiratory Rate 18 03/29/21 18:03 Blood Pressure 162/63 03/29/21 18:03 Pulse Oximetry (%) 99 03/29/21 18:03 Temperature 36.1 C 03/29/21 18:03 Pulse Rate 62 03/29/21 19:41 Respiratory Rate 18 03/29/21 18:03 Blood Pressure 160/91 03/29/21 19:32 Pulse Oximetry (%) 100 03/29/21 19:41 MDM MDM Narrative Medical decision making narrative: Narrative: Patient who had a witnessed mechanical fall in her bathroom while her family member was trying to assist her there with focal right hip pain after recent right hip surgery. Leg does appear shortened externally rotated concern for fracture, will obtain CT head, chest x-ray pelvis and right hip x-ray patient given analgesia X-ray shows a periprosthetic spiral fracture to her right hip Orthopedics has been consulted they will likely take to the OR for repair tomorrow Basic preop labs ordered Twelve-lead EKG shows sinus rhythm heart rate 66 MT, QRS, QTc within normal, no acute ischemia CT of the head shows no acute findings, chest x-ray shows no acute findings Dr. Lee is agreeable to admitting. Basic labs pending. Lab Data Result diagrams: 03/29/21 19:38 03/29/21 19:30 Discharge Plan Patient/Caregiver Discharge Instructions Pt seen by SALES SPECIALIST/PA only: No Clinical Impression: Periprosthetic fracture around internal prosthetic hip joint Qualifiers: Encounter type: initial encounter Laterality: right Qualified Code(s): M97.01XA - Periprosthetic fracture around internal prosthetic right hip joint, initial encounter Patient Disposition: Xfer As Inpt ([facility]) Condition: Fair Follow up with: Winsome Cordova ARNP [Primary Care Provider] - Prescriptions: No Action albuterol sulfate [ProAir HFA] 90 mcg/actuation HFA aerosol inhaler 2 puff INHALATION Q6H PRN (Reason: Dyspnea) Qty: 18 RF: 0 atenolol 50 mg tablet 50 mg PO DAILY Qty: 90 RF: 2 pregabalin 50 mg capsule 50 mg PO QDAY Qty: 30 RF: 2 furosemide [Lasix] 40 mg tablet 20 mg PO QAM RF: 0 gemfibrozil 600 mg tablet 600 mg PO BID Qty: 180 RF: 1 levothyroxine 50 mcg tablet 50 mcg PO QDAY Qty: 90 RF: 1 meloxicam 7.5 mg tablet 7.5 mg PO QDAY Qty: 180 RF: 2 clopidogrel 75 mg tablet 75 mg PO DAILY Qty: 30 RF: 2 hydroxyzine HCl 25 mg tablet 25 mg PO QHS Qty: 30 RF: 1 ferrous sulfate 325 mg (65 mg iron) tablet 325 mg PO BID Qty: 60 RF: 3 potassium chloride 20 mEq tablet extended release 20 meq PO QDAY Qty: 90 RF: 2 tramadol 50 mg tablet 50 mg PO BID Qty: 60 RF: 0 cyanocobalamin (vitamin B-12) 2,500 mg PO QDAY RF: 0 magnesium sulfate 100 mg capsule 100 mg PO QDAY RF: 0 melatonin 3 mg tablet 3 mg PO HS PRN (Reason: Sleep) RF: 0 fexofenadine [Chitra Allergy] 180 mg tablet 180 mg PO Q24H Qty: 30 RF: 4 meclizine 12.5 mg tablet 12.5 mg PO BID Qty: 60 RF: 1 ergocalciferol (vitamin D2) 400 UNIT tablet 400 unit PO DAILY RF: 0 omeprazole 20 MG capsule 20 mg PO BIDAC RF: 0 omega-3 fatty acids-fish oil 1 EACH capsule 1,000 mg PO DAILY RF: 0 hydrocodone-acetaminophen 7.5-325 mg tablet 1 tab PO Q6H PRN (Reason: pain) Qty: 60 RF: 0 aspirin 81 mg capsule 81 mg PO BID Qty: 60 RF: 0
--- NOTE | 2021-03-29 19:23 | XRay Report ---
INDICATION: fall TECHNIQUE: AP supine chest x-ray COMPARISON: Previous chest x-rays dated 03/04/2021, 02/03/2020, 09/12/2019 FINDINGS: Lungs:Lungs are negative. No focal pulmonary parenchymal infiltrate or mass Heart, vascular:Mild cardiomegaly. Pulmonary vascularity is unremarkable. No pulmonary edema or pulmonary congestion Mediastinum, vivi:No mediastinal widening. No hilar mass Pleura:No pleural fluid. No pleural-based mass or calcification Skeletal:Negative. IMPRESSION: 1. Mild cardiomegaly 2. Otherwise negative AP chest x-ray. No interval change Interpreted and Authenticated by: Raymundo Singleton 03/29/21
--- NOTE | 2021-03-29 19:25 | XRay Report ---
INDICATION: fall, R hip pain, recent femur surgery TECHNIQUE: AP pelvis. AP and crosstable lateral right hip COMPARISON: Previous examination dated 03/18/2021 FINDINGS: Previous right hemihip arthroplasty. There is a spiral fracture of the proximal right femur. This is a periprosthetic fracture. Pelvis is negative. No sacral fracture. There is degenerative disease in the left hip. IMPRESSION: 1. Right hemiarthroplasty 2. . Prosthetic right proximal femoral fracture Interpreted and Authenticated by: Raymundo Singleton 03/29/21
--- NOTE | 2021-03-29 19:28 | Cat Scan Report ---
INDICATION: fall, hit head COMPARISON: Previous brain CT scan dated 11/24/2020. Previous MRI scan dated 10/28/2007 TECHNIQUE: Axial noncontrast-enhanced images through the brain. Sagittally and coronally reformatted images. FINDINGS: Cerebral hemispheres:Negative. No intra-axial abnormality. No intra-axial hematoma. No localized mass effect. Brain volume is within normal limits. No hydrocephalus There is white matter abnormality consistent with small vessel ischemic change. No focal abnormality. No acute abnormality or significant interval change Brainstem and cerebellum:No intra-axial abnormality Extra-axial:No acute hemorrhage. No subdural or epidural hematoma. No subarachnoid hemorrhage. Basilar cisterns are normal Calvarial:No calvarial fracture. No lytic lesion Temporal bones are negative. No destructive lesions Soft tissue, orbits, sinuses:Probable periorbital soft tissue swelling. No nasal bone fractures. Orbits appear negative IMPRESSION: 1. No acute intracranial abnormality. 2. Periorbital soft tissue swelling The exam was performed using radiation dose optimization techniques including, but not limited to, automated exposure control, adjustment of the mA and/or kV according to patient size and use of iterative reconstruction technique. Interpreted and Authenticated by: Raymundo Singleton 03/29/21
--- NOTE | 2021-03-29 20:07 | Internal Med History&Physical ---
HPI History of Present Illness Patient information: Note initiated : 03/29/21 at 8:01 pm Service Date, if different from initiated Date: [] Patient: Corinne Crawford a 85 y/o F admitted on for right hip pain. Chief Complaint: [] History of present illness: Ms. Crawford is a 85 year old F Presents to the ED with right hip pain. He was getting up on going to the bathroom with the help of a niece when she fell landing on her right hip. Imaging and ER showed a right periprosthetic spiral fracture proximal femur. Had previously received a right hemihip arthroplasty after a fall about a month prior. Patient denies any chest pain shortness of breath or recent illnesses. Dr. Atkins was contacted for Ortho. Review of Systems: Pertinent positives as above. Denies headache/fever/chills/nausea/vomiting/chest or abdominal pain/cough/dyspnea/diar trang. Remaining 10 point review of system reviewed negative PFSH PFSH All Active Problems (Updated 03/29/21 @ 19:31 by Dieudonne Gabriel DO) Periprosthetic fracture around internal prosthetic hip joint (Acute) History of hemiarthroplasty of right hip (Acute) Anemia, hyperchromic (Acute) Closed hip fracture (Acute) Anemia due to stage 3b chronic kidney disease (Acute) Localized edema due to fluid overload (Chronic) Chronic kidney disease (CKD) stage G3b/A1, moderately decreased glomerular filtration rate (GFR) between 30-44 mL/min/1.73 square meter and albuminuria creatinine ratio less than 30 mg/g (Chronic) Renal insufficiency (Acute) Back pain (Chronic) DMII (diabetes mellitus, type 2) (Chronic) Hypertension, essential (Chronic) Malignant melanoma (Chronic) PVD (peripheral vascular disease) (Chronic) Renal calculi (Chronic 06/26/14) Tachycardia (Chronic) Urethral caruncle (Chronic) Urge incontinence (Chronic 06/11/14) Urinary frequency (Chronic 06/11/14) History of UTI (Chronic) Arthritis (Chronic) Muscle pain (Chronic) Hyperlipidemia (Chronic) Insomnia (Chronic) Joint pain (Chronic) History of tobacco use (Chronic) Acute gastritis without bleeding (Chronic) GERD (gastroesophageal reflux disease) (Chronic) Incomplete emptying of bladder (Chronic) Cardiac murmur (Chronic) Hypertriglyceridemia (Chronic) Abnormal abdominal ultrasound (Chronic) COPD (chronic obstructive pulmonary disease) (Chronic) Bipolar 1 disorder (Chronic) Carotid artery stenosis (Chronic) COPD exacerbation (Acute) BMI 27.0-27.9,adult (Chronic) Diabetic neuropathy (Chronic) Diabetic foot ulcer (Chronic) SOB (shortness of breath) (Chronic) Pneumonia (Chronic) Dysuria (Chronic) Cough (Chronic) Anemia, iron deficiency (Chronic) Dizziness (Chronic) UTI (urinary tract infection) (Chronic) Dysphagia (Chronic) Plantar fasciitis, bilateral (Chronic) Hypomagnesemia (Chronic) Hypokalemia (Chronic) Encounter for therapeutic drug level monitoring (Chronic) Indigestion (Chronic) Allergies (Chronic) Diabetic eye exam (Chronic 11/30/17) Diarrhea (Acute) Pedal edema (Acute) History of surgery (Chronic) Low back pain (Chronic) Bilateral ankle pain (Chronic) Diabetes (Chronic) Hypertension (Chronic) Hypothyroidism (Chronic) Hypomagnesemia (Acute) Hematoma (Acute) Mobility impaired (Acute) Allergies (Acute) Anemia (Acute) Vertigo (Acute) Medical History (Updated 03/29/21 @ 19:31 by Dieudonne Gabriel DO) Abnormal abdominal ultrasound Allergies Anemia, iron deficiency Anemia, iron deficiency Arthritis Back pain Bilateral ankle pain Bipolar 1 disorder BMI 27.0-27.9,adult Cardiac murmur Carotid artery stenosis Angiography by Dr. 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 Diabetic foot ulcer Diabetic neuropathy Dizziness Dizziness DMII (diabetes mellitus, type 2) Controlled w/ neurologic complications Dysphagia Dysphagia Dysuria (06/11/14) Dysuria Encounter for therapeutic drug level monitoring GERD (gastroesophageal reflux disease) Gross hematuria (06/11/14) Hematuria History of tobacco use History of UTI Hyperlipidemia Hypertension Hypertension, essential Hypertriglyceridemia Hypokalemia Hypokalemia Hypomagnesemia Hypomagnesemia Hypothyroidism Incomplete emptying of bladder Indigestion Insomnia Joint pain Low back pain Malignant melanoma Muscle pain Pelvic pain Plantar fasciitis, bilateral Plantar fasciitis, bilateral Pneumonia Pneumonia PVD (peripheral vascular disease) Renal calculi (06/26/14) Right middle lobe pneumonia SOB (shortness of breath) SOB (shortness of breath) Tachycardia Urethral caruncle Urge incontinence (06/11/14) Urinary frequency (06/11/14) UTI (urinary tract infection) UTI (urinary tract infection) Vertigo Surgical History H/O colonoscopy (~2010) Dr. Jaquez H/O gastric bypass (~1979) History of back surgery (~1971) History of bunionectomy Ship Surveyor Dr Jonah dixon and toenail removed History of cholecystectomy (04/08/13) History of open reduction and internal fixation (ORIF) procedure (2014) Arm fracture History of surgery Caudal NAT #2 w/o sed Caudal NAT w/o sed Caudal NAT w/o sed Caudal NAT #1 w/o sed Hx of appendectomy (~194) Family History Unknown Arthritis Sister , at age 58 Breast cancer Family/Other Cancer Uncles-2 Family/Other Cancer Aunt Mother , 71 years Diabetes Hypertension, essential Heart attack Father , 72 years Cancer Stomach cancer Brother H/O heart bypass surgery Social History marital status: other: Children-3 smoking status start date: 06/25/73 alcohol intake frequency: a few times a week substance use type: does not use MEDS/ALLERGIES Home Medications and Allergies Home Medications Medication Instructions Recorded Confirmed Type ergocalciferol (vitamin D2) 400 unit PO DAILY 10/07/15 03/04/21 History omega-3 fatty acids-fish oil 1,000 mg PO DAILY 10/07/15 03/04/21 History omeprazole 20 mg PO BIDAC 10/07/15 03/04/21 History cyanocobalamin (vitamin B-12) 2,500 mg PO QDAY 11/12/18 03/04/21 History melatonin 3 mg tablet 3 mg PO HS PRN 11/12/18 03/04/21 History albuterol sulfate 90 mcg/actuation 2 puff INHALATION Q6H PRN #18 g 09/12/19 03/04/21 Rx aerosol inhaler atenolol 50 mg tablet 50 mg PO DAILY #90 tab 08/17/20 03/04/21 Rx fexofenadine 180 mg tablet 180 mg PO Q24H #30 tab 09/14/20 03/04/21 Rx pregabalin 50 mg capsule 50 mg PO QDAY #30 cap 10/27/20 03/04/21 Rx furosemide 40 mg tablet 20 mg PO QAM tab 11/05/20 03/04/21 History gemfibrozil 600 mg tablet 600 mg PO BID #180 tab 11/08/20 03/04/21 Rx levothyroxine 50 mcg tablet 50 mcg PO QDAY #90 tab 11/08/20 03/04/21 Rx meclizine 12.5 mg tablet 12.5 mg PO BID #60 tab 11/30/20 03/04/21 Rx meloxicam 7.5 mg tablet 7.5 mg PO QDAY #180 tab 12/07/20 03/04/21 Rx clopidogrel 75 mg tablet 75 mg PO DAILY #30 tab 02/01/21 03/04/21 Rx magnesium sulfate 100 mg capsule 100 mg PO QDAY 02/01/21 03/04/21 History hydroxyzine HCl 25 mg tablet 25 mg PO QHS #30 tab 02/18/21 03/04/21 Rx ferrous sulfate 325 mg (65 mg 325 mg PO BID #60 tab 02/23/21 03/04/21 Rx iron) tablet potassium chloride 20 mEq 20 meq PO QDAY #90 tab 02/23/21 03/04/21 Rx tablet,extended release aspirin 81 mg PO BID #60 cap 03/05/21 Rx hydrocodone-acetaminophen 1 tab PO Q6H PRN #60 tab 03/05/21 Rx tramadol 50 mg tablet 50 mg PO BID #60 tab 03/28/21 Rx Allergies Allergy/AdvReac Type Severity Reaction Status Date / Time No Known Drug Allergies Allergy Unverified 03/07/21 07:14 EXAM Constitutional Vitals: Temp Pulse Resp BP Pulse Ox 97 F 62 18 160/91 100 03/29/21 18:03 03/29/21 19:41 03/29/21 18:03 03/29/21 19:32 03/29/21 19:41 Exam: General: Alert, Awake, No acute Distress Eyes/N/T: EOMI, PERRL, dry MM Head/Neck: neck supple, normocephalic atraumatic CV: RRR, No murmurs, normal s1/s2 Pulm: Clear b/l, no wheezing/rhonchi/rales Abd: soft, nontender, +BS x4 Ext: no clubbing/cyanosis, right lower extremity shortened externally rotated, b/l 1-2+ edema Neuro: Alert, no focal deficits, moves all extremities, CN 2-12 grossly intact, Skin: warm/dry DATA Data Completed and Pending Labs: Labs from last 24 hours 03/29/21 03/29/21 03/29/21 19:38 19:30 18:45 WBC Pending RBC Pending Hgb Pending Hct Pending MCV Pending MCH Pending MCHC Pending RDW Pending Plt Count Pending MPV Pending Neut % (Auto) Pending Sodium Pending Potassium Pending Chloride Pending Carbon Dioxide Pending Anion Gap Pending BUN Pending Creatinine Pending GFR Calculation Pending Glucose Pending Calcium Pending Urine Color Pending Urine Appearance Pending Urine pH Pending Ur Specific [place] Pending Urine Protein Pending Urine Glucose (UA) Pending Urine Ketones Pending Urine Occult Blood Pending Urine Nitrate Pending Urine Bilirubin Pending Urine Urobilinogen Pending Ur Leukocyte Esterase Pending A/P Narrative A/P Narrative: A: *Right proximal femur periprosthetic spiral fracture: *Recent right austen-hip arthroplasty 1 month prior: *COPD(not on home O2): *PVD/Carotid dz: on asa/plavix, follows with Dr. Mckeon *CKD IIIb: *Anemia, chronic: *HTN/HLD: *Chronic LBP & Neuropathy: *GERD: *Hypothyroidism: *Generalized weakness/deconditioning/debility: P: -Dr. Atkins for Ortho -hold asa/plavix pre-op -cont BB -hold lasix for now -IS, prn IH's -Reconcile home medications -pt/ot -ppx: SCD / home ppi DNR Time Spent With Patient Time: Total time spent is greater than 50% in coordination of care (as documented) at patient's floor/unit and/or counseling patient:
[2021-03-29 20:19] LABS: POC INR 3.5 (0.8-1.2); POC Pro Time 39.3 sec (11.9-14.5)
[2021-03-29 20:22] LABS: Basophils # (Auto) 0.03 K/mcL (0.00-0.30); Basophils % (Auto) 0.4 % (0.0-2.0); Eosinophils # (Auto) 0.16 K/mcL (0.00-0.70); Eosinophils % (Auto) 2.1 % (0.0-7.0); Hematocrit 26.1 % (34.1-44.9); Hemoglobin 7.5 g/dL (11.2-15.7); Lymphocytes % (Auto) 9.2 % (15.5-49.0); Mean Corpuscular HGB Conc 28.7 g/dL (31.0-36.0); Monocytes # (Auto) 0.42 K/mcL (0.10-0.90); Monocytes % (Auto) 5.5 % (1.0-12.0); Neutrophils % (Auto) 82.8 % (38.0-78.0); Platelet Count 251 K/mcL (140-440); RBC 2.29 M/mcL (3.59-5.38); Red Cell Distribution Width 19.9 % (11.5-14.5); WBC 7.6 K/mcL (4.5-11.0)
[2021-03-29 20:26] LABS: Appearance,Urine CLEAR (Clear); Bilirubin,Urine Negative (Negative); Color,Urine STRAW; Culture Indicated,Urine No; Glucose,Urine (UA) Negative (Negative); Ketones,Urine Negative (Negative); Leukocyte Esterase,Urine Negative /uL (Negative); Nitrate,Urine Negative (Negative); Protein,Urine Negative (Negative); Specific Gravity,Urine 1.006 (1.000-1.035); Urine Blood Negative (Negative); Urine RBC < 1 /hpf (0-3); Urine Squamous Epithelial Cell 0 /hpf (0-4); Urine WBC < 1 /hpf (0-4); Urobilinogen,Urine Negative
[2021-03-29 20:51] LABS: Blood Urea Nitrogen 19 mg/dL (8-23); Calcium 5.4 mg/dL (8.6-10.4); Carbon Dioxide 20 mmol/L (22-30); Chloride 111 mmol/L (96-108); Glomerular Filtration Rate 40; Glucose 95 mg/dL (70-105)
[2021-03-29] MEDS ORDERED: PROMETHAZINE 25 MG/ML VIAL IV PRN (21:19)
[2021-03-29] MEDS ORDERED: SENNOSIDES 1 TABLET PO PRN (21:19)
[2021-03-29] MEDS ORDERED: ONDANSETRON 4 MG/2 ML VIAL IV PRN (21:19)
[2021-03-29] MEDS ORDERED: POLYETHYLENE GLYCOL 3350 17 GM PACKET PO PRN (21:19)
[2021-03-29] MEDS ORDERED: MAGNESIUM SULFATE 2 GM/50 ML BAG IV PRN (21:19)
[2021-03-29] MEDS ORDERED: POTASSIUM CHLORIDE 20 MEQ TABLET PO PRN ×2 (21:19)
[2021-03-29] MEDS ORDERED: IPRATROPIUM/ALBUTEROL 3 ML AMPUL.NEB NEB PRN (21:19)
[2021-03-29] MEDS ORDERED: POTASSIUM CHLORIDE 40 MEQ in DEXTROSE 5% IN WATER 500 ML IV PRN (21:19)
[2021-03-29] MEDS ORDERED: morphine 2 MG/ML VIAL ONE (21:37)
[2021-03-29] MEDS ORDERED: CALCIUM GLUCONATE 4.65 MEQ/10 ML VIAL IV ONE (21:58)
--- NOTE | 2021-03-29 22:24 | History and Physical Report ---
DATE OF ADMISSION: 03/29/2021 ATTENDING PHYSICIAN: Christian Burden MD ADMITTING DIAGNOSIS: Right hip pain following fall. HISTORY OF PRESENT ILLNESS: Pleasant 85-year-old presented to the emergency department for acute right hip pain. This patient was ambulating in the bathroom with assistance by a family member when her leg gave out and she ended up landing on her right hip, then falling backwards hitting the back of her head. There was no loss of consciousness. The patient recently had a austen-hip arthroplasty of this extremity done by Dr. Huber within in the last 6 weeks. HOME MEDICATIONS: Ergocalciferol, omega-3 fatty acids, omeprazole, cyanocobalamin, melatonin 3 mg, furosemide 40, magnesium sulfate 100 mg. ALLERGIES: NO KNOWN DRUG ALLERGIES. PAST MEDICAL AND SURGICAL HISTORY: The patient's active and past medical and surgical problems include history of right hemiarthroplasty. She has anemia. She had an acute closed hip fracture prior to the austen-hip arthroplasty. Anemia due to stage III chronic kidney disease. She has edema due to fluid overload, which is chronic kidney disease. The patient has renal insufficiency; chronic low back pain; diabetes type 2; hypertension, that is essential; malignant melanoma; peripheral vascular disease; chronic renal calculi; tachycardia; urethral caruncle; urge incontinence; urinary frequency; history of chronic UTIs; chronic osteoarthritis; hyperlipidemia; insomnia; joint pain; history of tobacco use; history of acute gastritis without bleeding or GERD; history of cardiac murmur; hypertriglyceridemia; abnormal abdominal ultrasound; COPD; bipolar; carotid artery stenosis; diabetic neuropathy, diabetic foot ulcers; chronic shortness of breath; pneumonia; dysuria; dysphagia; plantar fascitis; hypomagnesia, chronic; hypokalemia, chronic; indigestion, chronic; seasonal allergies; diabetic; retinopathy; vertigo; and the impaired immobility. The patient's surgical history is history of colonoscopy, history of gastric bypass back in the 1980s, history of back surgery, history of bunionectomy, cholecystectomy, ORIF of a forearm. She has had multiple NAT injections and history of appendectomy. FAMILY HISTORY: Arthritis, cancer, diabetes, hypertension, [place], and bypass surgery. SOCIAL HISTORY: She is a former smoker. She drinks a few alcoholic beverages a few times a week. Does not use any illicit substances. PHYSICAL EXAMINATION: VITAL SIGNS: Include temperature of 36.1, pulse of 65, respirations 18, blood pressure 162/63, pulse ox 99% on room air. GENERAL: The patient is awake, alert, appear to be in no apparent distress. HEENT: Head is normocephalic and atraumatic. Pupils are equal, round, and reactive to light. No nystagmus ____. Moist mucous membranes, normal oral mucosa. Uvula is midline. NECK: Supple. No adenopathy or thyromegaly. CHEST: Clear to auscultation. No gallops, rubs, or murmurs. ABDOMEN: No marked tenderness, organomegaly, or guarding. MUSCULOSKELETAL: Demonstrates no significant gross deformity, although the right lower extremity was shortened and externally rotated. She did complain of pain and tenderness with any motion of the leg. She had no tenderness of the knee, foot, ankle. IMAGING REVIEW: Radiographs of the right hip demonstrated prior and post surgical changes with a austen-hip arthroplasty with a current acute closed periprosthetic intertrochanteric hip fracture with significant shortening and displacement. MEDICAL DECISION MAKING: After reviewing this case with another orthopedic surgeon, we both felt jointly that this patient will require revision hip surgery with a christianity modular long stem total hip arthroplasty revision. The benefits, risks, benefits, and alternatives were discussed with the patient that include, but are not necessarily limited to complications; anesthesia; to include heart attacks, stroke, or ; infection that could require long-term IV antibiotics and/or future multiple surgeries; injury to adjacent blood vessels or nerves that could result in chronic pain or paresthesias; blood loss that could necessitate blood transfusion with the secondary risk of acquisition of HIV or hepatitis or AIDS. All these risks were discussed with the patient and communicated through the emergency room staff. The patient understands them and consents the procedure as it has been explained to her. This patient will be admitted under the hospitalist due to her vast medical problems and be evaluated and cleared for surgery prior to the recommended surgical intervention. RICHELLE:bret Job ID: [id number] Doc ID: [id number] Gio Zamora PA-C
[2021-03-29] MEDS: DOCUSATE SODIUM 100 MG CAPSULE PO SCH (22:47)
[2021-03-29] MEDS ORDERED: CALCIUM GLUCONATE 4.65 MEQ/10 ML VIAL ONE (22:51)
[2021-03-29] MEDS ORDERED: ceFAZolin 1 GM VIAL ONE (23:24)
[2021-03-29] MEDS: 0.9 % SODIUM CHLORIDE 10 ML SYRINGE IV SCH (23:25)
[2021-03-29] MEDS: CALCIUM W/VIT D3 500 MG TABLET PO SCH (23:25)
[2021-03-29] MEDS: HYDROcodone/APAP 5/325MG TABLET PO PRN (23:26)
[2021-03-29 23:39] LABS: Phosphorous 2.5 mg/dL (2.5-4.5)
[2021-03-30] MEDS: morphine 4 MG/ML VIAL IV PRN ×5 (01:55→21:27)
[2021-03-30] MEDS ORDERED: 0.9 % SODIUM CHLORIDE 500 ML IV SCH (04:00)
[2021-03-30] MEDS: 0.9 % SODIUM CHLORIDE 10 ML SYRINGE IV SCH ×4 (04:29→21:29)
[2021-03-30] MEDS ORDERED: MAGNESIUM SULFATE 2 GM/50 ML BAG IV ONE ×2 (06:41→11:55)
[2021-03-30] MEDS ORDERED: ceFAZolin 2 GM in DEXTROSE 5% IN WATER 50 ML IV SCH (07:00)
[2021-03-30 07:03] LABS: Basophils # (Auto) 0.02 K/mcL (0.00-0.30); Basophils % (Auto) 0.2 % (0.0-2.0); Eosinophils # (Auto) 0.06 K/mcL (0.00-0.70); Eosinophils % (Auto) 0.6 % (0.0-7.0); Hemoglobin 8.2 g/dL (11.2-15.7); Lymphocytes # (Auto) 0.68 K/mcL (1.50-4.80); Lymphocytes % (Auto) 6.9 % (15.5-49.0); Mean Cell Volume 114.3 fL (80.0-100.0); Mean Corpuscular HGB Conc 29.3 g/dL (31.0-36.0); Mean Platelet Volume 11.6 fL (7.4-10.4); Monocytes # (Auto) 0.37 K/mcL (0.10-0.90); Monocytes % (Auto) 3.8 % (1.0-12.0); Neutrophils % (Auto) 88.5 % (38.0-78.0); Platelet Count 256 K/mcL (140-440); RBC 2.45 M/mcL (3.59-5.38); Red Cell Distribution Width 19.6 % (11.5-14.5); WBC 9.9 K/mcL (4.5-11.0)
--- NOTE | 2021-03-30 07:18 | Internal Med Progress Note ---
SUBJECTIVE Subjective Patient information: Note initiated : 03/30/21 at 7:14 am Service Date, if different from initiated Date: [] Patient: Corinne Crawford a 85 y/o F admitted on 03/29/21 for right hip pain. Chief Complaint: [] Interval history: History of present illness: Ms. Crawford is a 85 year old F Presents to the ED with right hip pain. He was getting up on going to the bathroom with the help of a niece when she fell landing on her right hip. Imaging and ER showed a right periprosthetic spiral fracture proximal femur. Had previously received a right hemihip arthroplasty after a fall about a month prior. Patient denies any chest pain shortness of breath or recent illnesses. Dr. Atkins was contacted for Ortho. 03/30 No overnight event or new complaints. She had significantly low magnesium and calcium. We will replete those. Review of Systems: denies headache/fever/chills/nausea/vomiting/chest or abdominal pain/cough/dyspnea/diarrhea. Otherwise see above. Constitutional Vitals: Vital Signs Temp Pulse Resp BP Pulse Ox 97.8 F 57 L 16 117/51 95 03/30/21 02:52 03/30/21 02:52 03/30/21 02:52 03/30/21 02:52 03/30/21 02:52 Period Temp Pulse Resp BP Sys/Mora Pulse Ox Last 24 Hr 97 F-97.8 F 57-67 16-18 117-164/50-91 95-100 Intake and Output 03/29/21 03/30/21 03/30/21 21:59 05:59 13:59 Intake Total 500 50 Output Total 975 Balance 500 -925 Weight 71.894 kg 71.894 kg Intake & Output: Intake & Output 03/29/21 03/30/21 03/30/21 21:59 05:59 13:59 Intake Total 500 50 Output Total 975 Balance 500 -925 Weight 71.894 kg 71.894 kg Intake: IV 500 50 Sodium Chloride 0.9% 500 ml @ 500 Wide Open IV BOLUS ONE Rx#: [id number] Output: Urine Catheter Amount 975 Other: Urine Appearance Clear Uretheral (Bower) Clear Urine Color Bright Yellow Uretheral (Bower) Bright Yellow Dark Yellow Urine Odor Uretheral (Bower) Normal Exam: General: Alert, Awake, No acute Distress Eyes/N/T: EOMI, Head/Neck: neck supple, CV: RRR, No murmurs, Pulm: Clear b/l, no wheezing/rhonchi/rales Abd: soft, nontender, +BS x4 Ext: no clubbing/cyanosis, right lower extremity shortened externally rotated, b/l 1-2+ edema Neuro: Alert, no focal deficits, moves all extremities, Skin: warm/dry OBJ DATA Labs CBC & Chem 7: 03/30/21 05:26 03/30/21 05:26 Labs: Abnormal Lab Results 03/30/21 03/29/21 03/29/21 05:26 20:07 19:38 RBC 2.45 L 2.29 L Hgb 8.2 L 7.5 L Hct 28.0 L 26.1 L MCV 114.3 H 114.0 H MCHC 29.3 L 28.7 L RDW 19.6 H 19.9 H MPV 11.6 H 12.0 H Neut % (Auto) 88.5 H 82.8 H Lymph % (Auto) 6.9 L 9.2 L Lymph # (Auto) 0.68 L 0.70 L Absolute Neutrophils 8.73 H POC PT 39.3 H POC INR 3.5 H Chloride Carbon Dioxide Creatinine Calcium Magnesium 25-OH Vitamin D Total PTH Intact 03/29/21 03/29/21 03/29/21 19:31 19:30 19:21 RBC Hgb Hct MCV MCHC RDW MPV Neut % (Auto) Lymph % (Auto) Lymph # (Auto) Absolute Neutrophils POC PT POC INR Chloride 111 H Carbon Dioxide 20 L Creatinine 1.2 H Calcium 5.4 L* Magnesium 0.7 L* 25-OH Vitamin D Total PTH Intact 103.8 H 03/29/21 19:21 RBC Hgb Hct MCV MCHC RDW MPV Neut % (Auto) Lymph % (Auto) Lymph # (Auto) Absolute Neutrophils POC PT POC INR Chloride Carbon Dioxide Creatinine Calcium Magnesium 25-OH Vitamin D Total < 5 L PTH Intact Meds: Medications Acetaminophen (Acetaminophen 325 Mg Tablet) 650 mg PO Q6HP PRN; Protocol PRN Reason: Per Pain Protocol/Fever > 101 Hydrocodone Bitart/Acetaminophen (Hydrocodone/Apap 5/325mg Tablet) 1 tab PO Q4HP PRN PRN Reason: PAIN LEVEL 3-6 Last Admin: 03/29/21 23:26 Dose: 1 tab Documented by: Albuterol/Ipratropium (Ipratropium/Albuterol 3 Ml Ampul.Neb) 3 ml NEB Q4HP PRN PRN Reason: Shortness Of Breath Calcium/Vitamin D (Calcium W/Vit D3 500 Mg Tablet) 1,000 mg PO DAILY [facility] Last Admin: 03/29/21 23:25 Dose: Not Given Documented by: Docusate Sodium (Docusate Sodium 100 Mg Capsule) 100 mg PO BID [facility] Last Admin: 03/29/21 22:47 Dose: Not Given Documented by: Hydralazine HCl (Hydralazine 20 Mg/Ml Vial) 0 mg IV Q2HP PRN PRN Reason: Hypertension Potassium Chloride 40 meq/ (Dextrose) 520 mls @ 130 mls/hr IV UD PRN PRN Reason: Potassium < 3 Magnesium Sulfate (Magnesium Sulfate) 2 gm in 50 mls @ 50 mls/hr IV UD PRN PRN Reason: Magnesium </= 1.6 Last Infusion: 03/30/21 01:45 Dose: Infused Documented by: Sodium Chloride (Sodium Chloride 0.9%) 500 mls @ 75 mls/hr IV .Q6H40M [facility] Stop: 03/30/21 10:39 Last Admin: 03/30/21 04:28 Dose: 75 mls/hr Documented by: Cefazolin Sodium 2 gm/ (Dextrose) 50 mls @ 100 mls/hr IV PREOP [facility]; Protocol Stop: 03/30/21 17:00 Magnesium Sulfate (Magnesium Sulfate) 2 gm in 50 mls @ 25 mls/hr IV ONCE ONE Stop: 03/30/21 08:40 Morphine Sulfate (Morphine 4 Mg/Ml Vial) 0 mg IV Q3HP PRN PRN Reason: Pain Last Admin: 03/30/21 05:55 Dose: 3 mg Documented by: Ondansetron HCl (Ondansetron 4 Mg/2 Ml Vial) 4 mg IV Q4HP PRN PRN Reason: Nausea And Vomiting Pantoprazole Sodium (Pantoprazole 40 Mg Vial) [facility] Polyethylene Glycol (Polyethylene Glycol 3350 17 Gm Packet) 17 gm PO DAILYP PRN PRN Reason: Constipation Potassium Chloride (Potassium Chloride 20 Meq Tablet) 40 meq PO UD PRN PRN Reason: Potssium is 3-3.5 Potassium Chloride (Potassium Chloride 20 Meq Tablet) 40 meq PO UD PRN PRN Reason: Potassium < 3 Promethazine HCl (Promethazine 25 Mg/Ml Vial) 12.5 mg IV Q6HP PRN PRN Reason: Nausea And Vomiting Senna (Sennosides 1 Tablet) 2 tab PO DAILYP PRN PRN Reason: Constipation Sodium Chloride (0.9 % Sodium Chloride 10 Ml Syringe) 10 ml IV Q8 PATY Last Admin: 03/30/21 04:29 Dose: Not Given Documented by: A/P Narrative A/P Narrative: A: *Right proximal femur periprosthetic spiral fracture: *Recent right austen-hip arthroplasty 1 month prior: *HypoCalcemia 2/2 vit D deficiency and PTH resistence from Hypomagnesemia *HyopMag: ppi/loop diuretics contributing, 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 Mckeon *CKD IIIb: *Anemia, chronic: low but stable *HTN/HLD: *Chronic LBP & Neuropathy: *GERD: *Hypothyroidism: *Generalized weakness/deconditioning/debility: P: -Dr. Atkins for Ortho -hold asa/plavix pre-op -cont BB -IS, prn IH's -Replete electrolytes -Vit D supp, increase home dose and f/u labs outpt -hold lasix, switch ppi to H2 -pt/ot -ppx: SCD / switch home ppi to H2 DNR Time Spent With Patient Time: Total time spent is greater than 50% in coordination of care (as documented) at patient's floor/unit and/or counseling patient: QUALITY VTE Deep Vein Thrombosis/Pulmonary Embolism Present on Admission: No
[2021-03-30] MEDS: CALCIUM W/VIT D3 500 MG TABLET PO SCH (07:21)
[2021-03-30] MEDS: DOCUSATE SODIUM 100 MG CAPSULE PO SCH ×2 (07:21→21:29)
[2021-03-30] MEDS ORDERED: 0.9 % SODIUM CHLORIDE 1,000 ML IV SCH (07:27)
[2021-03-30] MEDS ORDERED: PANTOPRAZOLE 40 MG VIAL IV SCH (07:30)
[2021-03-30 07:31] LABS: INR 2.7 (0.9-1.1)
[2021-03-30] MEDS: FAMOTIDINE/PF 20 MG/2 ML VIAL IV SCH ×2 (08:07→21:28)
[2021-03-30 08:16] LABS: ALT/SGPT 8 U/L (<40); AST/SGOT 22 U/L (<32); Albumin 2.8 gm/dL (3.2-5.2); Albumin/Globulin Ratio 0.8 (1.0-2.3); Alkaline Phosphatase 189 U/L (39-117); Bilirubin,Direct < 0.2 mg/dL (0-0.3); Bilirubin,Total 0.3 mg/dL (0.1-1.0); Blood Urea Nitrogen 14 mg/dL (8-23); Calcium 6.3 mg/dL (8.6-10.4); Carbon Dioxide 19 mmol/L (22-30); Chloride 112 mmol/L (96-108); Globulin 3.3 gm/dL (2.2-3.7); Glomerular Filtration Rate 50; Glucose 87 mg/dL (70-105); Lactate Dehydrogenase 541 U/L (135-225); Phosphorous 2.6 mg/dL (2.5-4.5); Triglycerides 98 mg/dL (<150); Uric Acid 6.8 mg/dL (2.5-8.0)
[2021-03-30] MEDS ORDERED: CALCIUM GLUCONATE 4.65 MEQ/10 ML VIAL IV ONE (08:58)
[2021-03-30] MEDS ORDERED: DEXTROSE 5% IN WATER 1,000 ML IV SCH (09:00)
[2021-03-30] MEDS ORDERED: CALCIUM GLUCONATE 9.3 MEQ in DEXTROSE 5% IN WATER 50 ML IV ONE (09:00)
[2021-03-30] MEDS ORDERED: MECLIZINE 25 MG TABLET PO PRN (09:17)
[2021-03-30] MEDS: GEMFIBROZIL 600 MG TABLET PO SCH ×2 (09:19→21:29)
[2021-03-30] MEDS: ATENOLOL 50 MG TABLET PO SCH (09:43)
[2021-03-30] MEDS ORDERED: 0.9 % SODIUM CHLORIDE 250 ML IV SCH ×3 (10:30→16:30)
[2021-03-30] MEDS ORDERED: MIDAZOLAM 2 MG/2 ML VIAL ONE (11:55)
[2021-03-30] MEDS ORDERED: GLYCOPYRROLATE 0.2 MG/ML VIAL IV ONE (11:55)
[2021-03-30] MEDS ORDERED: DEXAMETHASONE 10 MG/ML VIAL ONE (11:55)
[2021-03-30] MEDS ORDERED: PROPOFOL 200 MG/20 ML VIAL IV ONE (11:55)
[2021-03-30] MEDS ORDERED: KETAMINE 50 MG/ML Syringe (ANEST) IV ONE (11:55)
[2021-03-30] MEDS ORDERED: LIDOCAINE HCL/PF 100 MG/5 ML SYRINGE IV ONE (11:55)
[2021-03-30] MEDS ORDERED: fentaNYL 250 MCG/5 ML VIAL IV ONE (11:55)
[2021-03-30] MEDS ORDERED: SUCCINYLCHOLINE 20 MG/ML ML IV ONE (11:55)
[2021-03-30] MEDS ORDERED: ONDANSETRON 4 MG/2 ML VIAL ONE (11:55)
[2021-03-30] MEDS ORDERED: ePHEDrine 50 MG/5 ML SYRINGE (ANEST) IV ONE (11:55)
[2021-03-30 14:13] LABS: Blood Urea Nitrogen 15 mg/dL (8-23); Calcium 6.8 mg/dL (8.6-10.4); Carbon Dioxide 19 mmol/L (22-30); Chloride 113 mmol/L (96-108); Glomerular Filtration Rate 57; Glucose 97 mg/dL (70-105)
[2021-03-30] MEDS: FERROUS SULFATE 325 MG TABLET PO SCH (16:09)
[2021-03-30] MEDS ORDERED: 0.9 % SODIUM CHLORIDE 10 ML SYRINGE IV PRN (16:15)
[2021-03-30] MEDS ORDERED: PHYTONADIONE 2.5 MG in 0.9 % SODIUM CHLORIDE 50 ML IV ONE (16:18)
[2021-03-30 16:22] LABS: POC INR 3.4 (0.8-1.2); POC Pro Time 38.6 sec (11.9-14.5)
--- NOTE | 2021-03-30 16:33 | Procedure Note ---
Procedures - Central Line Placement Right IJ Consent obtained: written consent Date of Procedure: 03/30/21 Time out performed: Yes Patient placed on monitor/pulse ox: Yes MD prep: mask, sterile gown, sterile gloves, cap Central line prep: 2% Chlorhexidine scrub (X 2) Local anesthesia used: lidocaine 1% Amount of anesthesia used (mls): 5 Ultrasound used for placement: Yes Central line lumen inserted: quad, 16 cm Post procedure: sutured in place, good blood return, all ports aspirated, flushed, capped, sterile dressing applied Post procedure x-ray: tip of catheter in good position, no pneumothorax seen Patient tolerated procedure: well, no complications (Sedated with versed 2mg/ketamine 50mg IV, placed on monitors and simple maskO2...no problems.) Complications: none
[2021-03-30] MEDS ORDERED: fentaNYL 100 MCG/2 ML VIAL IV PRN (16:37)
--- NOTE | 2021-03-30 16:37 | XRay Report ---
INDICATION: Central Line Placement TECHNIQUE: AP chest x-ray COMPARISON: Previous chest x-ray dated 03/29/2021 FINDINGS:Interval placement of right central venous catheter with its tip in the superior vena cava. There is no pneumothorax. Lungs:Lungs are negative. No focal pulmonary parenchymal infiltrate or mass Heart, vascular:No significant cardiomegaly. Pulmonary vascularity is normal. No pulmonary edema or pulmonary congestion Mediastinum, vivi:No mediastinal widening. No hilar mass Pleura:No pleural fluid. No pleural-based mass or calcification Skeletal:Negative. IMPRESSION: 1. Right central venous catheter in the superior vena cava 2. No detectable pneumothorax Interpreted and Authenticated by: Raymundo Singleton 03/30/21
[2021-03-30] MEDS: MELATONIN 3 MG TABLET PO PRN (21:28)
[2021-03-30] MEDS: hydrOXYzine 25 MG TABLET PO SCH (21:28)
[2021-03-31] MEDS: morphine 4 MG/ML VIAL IV PRN (03:55)
[2021-03-31] MEDS: 0.9 % SODIUM CHLORIDE 10 ML SYRINGE IV SCH ×4 (05:42→20:53)
[2021-03-31 09:55] LABS: Basophils # (Auto) 0.02 K/mcL (0.00-0.30); Basophils % (Auto) 0.3 % (0.0-2.0); Eosinophils # (Auto) 0.06 K/mcL (0.00-0.70); Eosinophils % (Auto) 0.9 % (0.0-7.0); Hematocrit 22.9 % (34.1-44.9); Hemoglobin 6.6 g/dL (11.2-15.7); INR 1.2 (0.9-1.1); Lymphocytes # (Auto) 0.48 K/mcL (1.50-4.80); Lymphocytes % (Auto) 7.5 % (15.5-49.0); Mean Cell Volume 116.2 fL (80.0-100.0); Mean Corpuscular HGB Conc 28.8 g/dL (31.0-36.0); Monocytes # (Auto) 0.41 K/mcL (0.10-0.90); Monocytes % (Auto) 6.4 % (1.0-12.0); Neutrophils % (Auto) 84.9 % (38.0-78.0); Platelet Count 185 K/mcL (140-440); Prothrombin Time 15.5 sec (11.9-14.5); RBC 1.97 M/mcL (3.59-5.38); Red Cell Distribution Width 19.1 % (11.5-14.5); WBC 6.4 K/mcL (4.5-11.0)
[2021-03-31 10:00] LABS: ALT/SGPT 9 U/L (<40); AST/SGOT 19 U/L (<32); Alkaline Phosphatase 155 U/L (39-117); Bilirubin,Total 0.5 mg/dL (0.1-1.0); Blood Urea Nitrogen 12 mg/dL (8-23); Calcium 7.2 mg/dL (8.6-10.4); Carbon Dioxide 21 mmol/L (22-30); Chloride 110 mmol/L (96-108); Globulin 2.9 gm/dL (2.2-3.7); Glomerular Filtration Rate 57; Glucose 94 mg/dL (70-105)
[2021-03-31] MEDS ORDERED: 0.9 % SODIUM CHLORIDE 250 ML IV SCH (10:45)
[2021-03-31] MEDS: CALCIUM W/VIT D3 500 MG TABLET PO SCH (10:51)
[2021-03-31] MEDS: PREGABALIN 25 MG CAPSULE PO SCH ×2 (10:51→20:51)
[2021-03-31] MEDS: FERROUS SULFATE 325 MG TABLET PO SCH ×2 (10:51→17:04)
[2021-03-31] MEDS: GEMFIBROZIL 600 MG TABLET PO SCH ×2 (10:51→20:14)
[2021-03-31] MEDS: DOCUSATE SODIUM 100 MG CAPSULE PO SCH ×2 (10:51→21:37)
[2021-03-31] MEDS: LEVOTHYROXINE 50 MCG TABLET PO SCH (10:51)
[2021-03-31] MEDS: CYANOCOBALAMIN (VITAMIN B-12) 500 MCG TABLET PO SCH (10:52)
[2021-03-31] MEDS: VITAMIN D3 400 UNIT TABLET PO SCH (10:52)
[2021-03-31] MEDS: ATENOLOL 50 MG TABLET PO SCH (10:52)
[2021-03-31] MEDS ORDERED: POTASSIUM CHLORIDE 20 MEQ in DEXTROSE 5% IN WATER 250 ML IV ONE (14:35)
--- NOTE | 2021-03-31 14:46 | Internal Med Progress Note ---
SUBJECTIVE Subjective Patient information: Note initiated : 03/31/21 at 2:36 pm Service Date, if different from initiated Date: [] Patient: Corinne Crawford 85 y/o F admitted on 03/29/21 for right hip pain. Chief Complaint: [Right proximal femur periprosthetic fracture] Interval history: HISTORY OF PRESENT ILLNESS: Pleasant 85-year-old presented to the emergency department for acute right hip pain. This patient was ambulating in the bathroom with assistance by a family member when her leg gave out and she ended up landing on her right hip, then falling backwards hitting the back of her head. There was no loss of consciousness. The patient recently had a austen-hip arthroplasty of this extremity done by Dr. Huber within in the last 6 weeks. 03/31: Hemoglobin 6.6. INR 1.2. Subjective not obtained due to clinical situations. Constitutional Vitals: Vital Signs Temp Pulse Resp BP Pulse Ox 37.2 C 61 16 138/57 96 03/31/21 10:44 03/31/21 10:44 03/31/21 10:44 03/31/21 10:44 03/31/21 10:44 Period Temp Pulse Resp BP Sys/Mora Pulse Ox Last 24 Hr 35.9 C-37.2 C 58-65 14-18 129-150/57-63 95-98 Intake and Output 03/31/21 03/31/21 03/31/21 05:59 13:59 21:59 Intake Total 450 325 Output Total 525 Balance -75 325 Intake & Output: Intake & Output 03/31/21 03/31/21 03/31/21 05:59 13:59 21:59 Intake Total 450 325 Output Total 525 Balance -75 325 Intake: IV 0 Dextrose 5% in Water 1,000 ml @ 0 100 mls/hr IV .Q10H [facility] Rx#: [id number] Oral 450 Blood Product 325 Output: Urine Catheter Amount 525 Other: Urine Appearance Clear Urine Color Bright Yellow # Bowel Movements 0 General appearance: cooperative and no acute distress Head Head exam: Present atraumatic and normocephalic Eye Eye exam: Present EOMI and PERRL ENT ENT exam: Present mucous membranes moist, normal exam and normal external ear exam Neck Neck exam: Present normal inspection; Absent lymphadenopathy, tenderness and thyromegaly Respiratory Respiratory exam: Absent accessory muscle use, respiratory distress and wheezes Cardiovascular Cardiovascular exam: Present normal rate and rhythm; Absent JVD GI/Abdominal GI/Abdominal exam: Present normal bowel sounds and soft; Absent organomegaly and tenderness Extremities Exam Extremities exam: Present normal capillary refill and tenderness; Absent full ROM and normal inspection Neurological Exam Neurological exam: Present altered and CN II-XII intact; Absent alert, motor sensory deficit and oriented X3 Psychiatric Psychiatric exam: Present normal affect and normal mood; Absent anxious and depressed Skin Skin exam: Present dry and intact OBJ DATA Labs CBC & Chem 7: 03/31/21 05:39 03/31/21 05:39 Labs: Abnormal Lab Results 03/31/21 03/31/21 03/31/21 05:39 05:39 05:39 RBC 1.97 L Hgb 6.6 L* Hct 22.9 L MCV 116.2 H MCHC 28.8 L RDW 19.1 H MPV 12.0 H Neut % (Auto) 84.9 H Lymph % (Auto) 7.5 L Lymph # (Auto) 0.48 L Absolute Neutrophils POC PT PT 15.5 H POC INR INR 1.2 H Sodium Chloride 110 H Carbon Dioxide 21 L Creatinine Calcium 7.2 L Magnesium Alkaline Phosphatase 155 H Lactate Dehydrogenase Albumin 3.0 L Albumin/Globulin Ratio 25-OH Vitamin D Total PTH Intact 03/30/21 03/30/21 03/30/21 16:15 13:00 05:27 RBC Hgb Hct MCV MCHC RDW MPV Neut % (Auto) Lymph % (Auto) Lymph # (Auto) Absolute Neutrophils POC PT 38.6 H PT 30.0 H POC INR 3.4 H INR 2.7 H Sodium Chloride 113 H Carbon Dioxide 19 L Creatinine Calcium 6.8 L Magnesium Alkaline Phosphatase Lactate Dehydrogenase Albumin Albumin/Globulin Ratio 25-OH Vitamin D Total PTH Intact 03/30/21 03/30/21 03/29/21 05:26 05:26 20:07 RBC 2.45 L Hgb 8.2 L Hct 28.0 L MCV 114.3 H MCHC 29.3 L RDW 19.6 H MPV 11.6 H Neut % (Auto) 88.5 H Lymph % (Auto) 6.9 L Lymph # (Auto) 0.68 L Absolute Neutrophils 8.73 H POC PT 39.3 H PT POC INR 3.5 H INR Sodium 146 H Chloride 112 H Carbon Dioxide 19 L Creatinine Calcium 6.3 L Magnesium 1.4 L Alkaline Phosphatase 189 H Lactate Dehydrogenase 541 H Albumin 2.8 L Albumin/Globulin Ratio 0.8 L 25-OH Vitamin D Total PTH Intact 03/29/21 03/29/21 03/29/21 19:38 19:31 19:30 RBC 2.29 L Hgb 7.5 L Hct 26.1 L MCV 114.0 H MCHC 28.7 L RDW 19.9 H MPV 12.0 H Neut % (Auto) 82.8 H Lymph % (Auto) 9.2 L Lymph # (Auto) 0.70 L Absolute Neutrophils POC PT PT POC INR INR Sodium Chloride 111 H Carbon Dioxide 20 L Creatinine 1.2 H Calcium 5.4 L* Magnesium 0.7 L* Alkaline Phosphatase Lactate Dehydrogenase Albumin Albumin/Globulin Ratio 25-OH Vitamin D Total PTH Intact 03/29/21 03/29/21 19:21 19:21 RBC Hgb Hct MCV MCHC RDW MPV Neut % (Auto) Lymph % (Auto) Lymph # (Auto) Absolute Neutrophils POC PT PT POC INR INR Sodium Chloride Carbon Dioxide Creatinine Calcium Magnesium Alkaline Phosphatase Lactate Dehydrogenase Albumin Albumin/Globulin Ratio 25-OH Vitamin D Total < 5 L PTH Intact 103.8 H Meds: Medications Acetaminophen (Acetaminophen 325 Mg Tablet) 650 mg PO Q6HP PRN; Protocol PRN Reason: Per Pain Protocol/Fever > 101 Hydrocodone Bitart/Acetaminophen (Hydrocodone/Apap 5/325mg Tablet) 1 tab PO Q4HP PRN PRN Reason: PAIN LEVEL 3-6 Last Admin: 03/29/21 23:26 Dose: 1 tab Documented by: Albuterol/Ipratropium (Ipratropium/Albuterol 3 Ml Ampul.Neb) 3 ml NEB Q4HP PRN PRN Reason: Shortness Of Breath Atenolol (Atenolol 50 Mg Tablet) 50 mg PO DAILY [facility] Last Admin: 03/31/21 10:52 Dose: Not Given Documented by: Calcium/Vitamin D (Calcium W/Vit D3 500 Mg Tablet) 1,000 mg PO DAILY [facility] Last Admin: 03/31/21 10:51 Dose: Not Given Documented by: Cyanocobalamin (Cyanocobalamin (Vitamin B-12) 500 Mcg Tablet) 2,500 mcg PO DAILY [facility] Last Admin: 03/31/21 10:52 Dose: Not Given Documented by: Docusate Sodium (Docusate Sodium 100 Mg Capsule) 100 mg PO BID [facility] Last Admin: 03/31/21 10:51 Dose: Not Given Documented by: Famotidine (Famotidine/Pf 20 Mg/2 Ml Vial) 20 mg IV HS [facility] Last Admin: 03/30/21 21:28 Dose: 20 mg Documented by: Ferrous Sulfate (Ferrous Sulfate 325 Mg Tablet) 325 mg PO BIDCC [facility] Last Admin: 03/31/21 10:51 Dose: Not Given Documented by: Gemfibrozil (Gemfibrozil 600 Mg Tablet) 600 mg PO BID [facility] Last Admin: 03/31/21 10:51 Dose: Not Given Documented by: Hydralazine HCl (Hydralazine 20 Mg/Ml Vial) 0 mg IV Q2HP PRN PRN Reason: Hypertension Hydroxyzine HCl (Hydroxyzine 25 Mg Tablet) 25 mg PO QHS [facility] Last Admin: 03/30/21 21:28 Dose: 25 mg Documented by: Potassium Chloride 40 meq/ (Dextrose) 520 mls @ 130 mls/hr IV UD PRN PRN Reason: Potassium < 3 Magnesium Sulfate (Magnesium Sulfate) 2 gm in 50 mls @ 50 mls/hr IV UD PRN PRN Reason: Magnesium </= 1.6 Last Infusion: 03/30/21 01:45 Dose: Infused Documented by: Sodium Chloride (Sodium Chloride 0.9%) 250 mls @ 20 mls/hr IV .[id number] [facility] Stop: 03/31/21 23:14 Last Admin: 03/31/21 11:10 Dose: 20 mls/hr Documented by: Potassium Chloride 20 meq/ (Dextrose) 260 mls @ 130 mls/hr IV ONCE ONE Stop: 03/31/21 16:34 Levothyroxine Sodium (Levothyroxine 50 Mcg Tablet) 50 mcg PO QAMAC [facility] Last Admin: 03/31/21 10:51 Dose: Not Given Documented by: Meclizine HCl (Meclizine 25 Mg Tablet) 12.5 mg PO BIDP PRN PRN Reason: Vertigo Last Admin: 03/30/21 21:28 Dose: 12.5 mg Documented by: Melatonin (Melatonin 3 Mg Tablet) 3 mg PO HS PRN PRN Reason: Sleep Last Admin: 03/30/21 21:28 Dose: 3 mg Documented by: Morphine Sulfate (Morphine 4 Mg/Ml Vial) 0 mg IV Q3HP PRN PRN Reason: Pain Last Admin: 03/31/21 03:55 Dose: 3 mg Documented by: Ondansetron HCl (Ondansetron 4 Mg/2 Ml Vial) 4 mg IV Q4HP PRN PRN Reason: Nausea And Vomiting Polyethylene Glycol (Polyethylene Glycol 3350 17 Gm Packet) 17 gm PO DAILYP PRN PRN Reason: Constipation Potassium Chloride (Potassium Chloride 20 Meq Tablet) 40 meq PO UD PRN PRN Reason: Potssium is 3-3.5 Potassium Chloride (Potassium Chloride 20 Meq Tablet) 40 meq PO UD PRN PRN Reason: Potassium < 3 Pregabalin (Pregabalin 25 Mg Capsule) 50 mg PO QDAY [facility] Last Admin: 03/31/21 10:51 Dose: Not Given Documented by: Promethazine HCl (Promethazine 25 Mg/Ml Vial) 12.5 mg IV Q6HP PRN PRN Reason: Nausea And Vomiting Senna (Sennosides 1 Tablet) 2 tab PO DAILYP PRN PRN Reason: Constipation Sodium Chloride (0.9 % Sodium Chloride 10 Ml Syringe) 10 ml IV Q8 [facility] Last Admin: 03/31/21 14:30 Dose: Not Given Documented by: Sodium Chloride (0.9 % Sodium Chloride 10 Ml Syringe) 10 ml IV Q12 [facility] Last Admin: 03/31/21 11:10 Dose: 10 ml Documented by: Sodium Chloride (0.9 % Sodium Chloride 10 Ml Syringe) 10 ml IV UD PRN PRN Reason: Anesthesia Vitamin D (Vitamin D3 400 Unit Tablet) 800 unit PO DAILY [facility] Last Admin: 03/31/21 10:52 Dose: Not Given Documented by: A/P Assessment and plan (1) 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 plan for discharge to SNF 2. follow up with [facility] in 2 weeks for staple removal and post op check 3. Walker for ambulation 4. pillow between legs when sleeping 5. ASA 81 mg BID for 30 days for DVT prophylaxis 6. medicine per hospitalists (3) Hyperlipidemia: Status: Chronic Qualifiers: Hyperlipidemia type: unspecified Qualified Code(s): E78.5 - Hyperlipidemia, unspecified (4) GERD (gastroesophageal reflux disease): Status: Chronic Qualifiers: Esophagitis presence: with esophagitis Qualified Code(s): K21.0 - Gastro-esophageal reflux disease with esophagitis (5) Anemia, iron deficiency: Status: Chronic Qualifiers: Iron deficiency anemia type: unspecified iron deficiency Qualified Code(s): D50.9 - Iron deficiency anemia, unspecified (6) Hypokalemia: Status: Chronic (7) Hypertension: Status: Chronic Qualifiers: Hypertension type: essential hypertension Qualified Code(s): I10 - Essential (primary) hypertension (8) Hypothyroidism: Status: Chronic (9) COPD (chronic obstructive pulmonary disease): Status: Chronic Qualifiers: COPD type: chronic bronchitis Chronic bronchitis type: mucopurulent Qualified Code(s): J41.1 - Mucopurulent chronic bronchitis Narrative A/P Narrative: Assessment and plan: 1. Right proximal femur periprosthetic fracture: Inpatient MedSur Orthopedic surgeon Dr. Atkins consulted who planned to do surgery either this evening or tomorrow N.p.o. for now Bedrest for now Physical and Occupational Therapy evaluation and treatment after the surgery Tylenol as needed mild pain Cap[place] as needed moderate pain Morphine as needed severe pain #2 anemia: Hemoglobin 6.6 this morning Transfuse 3 unit PRBC before the surgery Repeat CBC in the morning to trend H&H #3 history of COPD, stable: Continue bronchodilator as needed for wheezing or shortness of breath #4 history of hypothyroidism: Continue thyroid replacement therapy 5. History of essential hypertension's: Currently normotensive Continue atenolol 6. History of mixed dyslipidemia: Continue gemfibrozil 7. Hypokalemia: Continue potassium replacement according to protocol CMP in the morning to trend serum potassium level and repeat replacement as needed Also check serum magnesium level and will replace if needed 8. Vitamin D deficiency and hypocalcemia: Continue vitamin D calcium oral replacement Stop PPI and switch to H2 inhibitor Hold diuretics GI prophylaxis: Famotidine DVT prophylaxis: SCDs CODE STATUS: Okay for intubations for the procedures but otherwise do not compressed Prognosis: Guarded Dispositions: Inpatient MedSur Time Spent With Patient Time: Total time spent is greater than 50% in coordination of care (as documented) at patient's floor/unit and/or counseling patient: Total time spent with greater than 50% in coordination of care (as documented) at patient's floor/unit and/or counseling patient:: Greater than 35 minutes QUALITY VTE Deep Vein Thrombosis/Pulmonary Embolism Present on Admission: No
--- NOTE | 2021-03-31 16:39 | EKG ---
[facility] Test Date: 2021-03-29 Pat Name: Corinne Crawford Department: ED Room: Gender: Female [employer] Relationship [employer]: : 1935 Requested By: Dieudonne Gabriel Order Number: [id number] Reading MD: Raymundo Mclaughlin M.D. Measurements Intervals Catherine Rate: 66 P: 69 MT: 178 QRS: 10 QRSD: 91 T: -10 QT: 451 QTc: 473 Interpretive Statements Sinus rhythm Borderline T abnormalities, inferior leads Baseline wander in lead(s) V1,V2,V3 Electronically Signed On 03-31-2021 16:39:28 PDT by Raymundo Mclaughlin M.D. /[id number]
[2021-03-31] MEDS: ACETAMINOPHEN 325 MG TABLET PO PRN (19:41)
[2021-03-31] MEDS: HYDROcodone/APAP 5/325MG TABLET PO PRN (20:14)
[2021-03-31] MEDS: hydrOXYzine 25 MG TABLET PO SCH (20:14)
[2021-03-31] MEDS: hydrALAZINE 20 MG/ML VIAL IV PRN (20:16)
[2021-03-31] MEDS: FAMOTIDINE/PF 20 MG/2 ML VIAL IV SCH (20:16)
[2021-04-01] MEDS: 0.9 % SODIUM CHLORIDE 10 ML SYRINGE IV SCH ×7 (00:54→20:48)
[2021-04-01] MEDS: HYDROcodone/APAP 5/325MG TABLET PO PRN ×2 (03:02→15:45)
[2021-04-01] MEDS ORDERED: SCOPOLAMINE 1 PATCH PATCH TOPICAL PRN (07:46)
[2021-04-01 07:50] LABS: Basophils # (Auto) 0.02 K/mcL (0.00-0.30); Basophils % (Auto) 0.2 % (0.0-2.0); Eosinophils # (Auto) 0.07 K/mcL (0.00-0.70); Eosinophils % (Auto) 0.8 % (0.0-7.0); Hematocrit 33.9 % (34.1-44.9); Hemoglobin 10.6 g/dL (11.2-15.7); Lymphocytes # (Auto) 0.71 K/mcL (1.50-4.80); Lymphocytes % (Auto) 8.2 % (15.5-49.0); Mean Cell Volume 98.8 fL (80.0-100.0); Mean Corpuscular HGB Conc 31.3 g/dL (31.0-36.0); Mean Platelet Volume 11.9 fL (7.4-10.4); Monocytes % (Auto) 4.6 % (1.0-12.0); Neutrophils % (Auto) 86.2 % (38.0-78.0); Platelet Count 167 K/mcL (140-440); RBC 3.43 M/mcL (3.59-5.38); Red Cell Distribution Width 23.5 % (11.5-14.5); WBC 8.6 K/mcL (4.5-11.0)
[2021-04-01] MEDS: ATENOLOL 50 MG TABLET PO SCH (08:23)
[2021-04-01] MEDS: PREGABALIN 25 MG CAPSULE PO SCH (08:23)
[2021-04-01 09:02] LABS: ALT/SGPT 9 U/L (<40); AST/SGOT 18 U/L (<32); Albumin 2.6 gm/dL (3.2-5.2); Albumin/Globulin Ratio 0.8 (1.0-2.3); Alkaline Phosphatase 139 U/L (39-117); Bilirubin,Total 0.7 mg/dL (0.1-1.0); Blood Urea Nitrogen 13 mg/dL (8-23); Calcium 7.6 mg/dL (8.6-10.4); Carbon Dioxide 22 mmol/L (22-30); Chloride 110 mmol/L (96-108); Globulin 3.1 gm/dL (2.2-3.7); Glomerular Filtration Rate 57; Glucose 88 mg/dL (70-105)
[2021-04-01] MEDS ORDERED: ceFAZolin 2 GM in DEXTROSE 5% IN WATER 50 ML IV SCH (10:15)
[2021-04-01] MEDS ORDERED: 0.9 % SODIUM CHLORIDE 9 ML, KETOROLAC 30 MG, ROPIVACAINE HCL/PF 49.5 ML, EPINEPHrine 0.... IJ ONE (11:44)
[2021-04-01] MEDS ORDERED: GLYCOPYRROLATE 0.2 MG/ML VIAL IV ONE (11:55)
[2021-04-01] MEDS ORDERED: MAGNESIUM SULFATE 2 GM/50 ML BAG IV ONE (11:55)
[2021-04-01] MEDS ORDERED: ePHEDrine 50 MG/5 ML SYRINGE (ANEST) IV ONE (11:55)
[2021-04-01] MEDS ORDERED: LIDOCAINE HCL/PF 100 MG/5 ML SYRINGE IV ONE (11:55)
[2021-04-01] MEDS ORDERED: KETAMINE 50 MG/ML Syringe (ANEST) IV ONE (11:55)
[2021-04-01] MEDS ORDERED: PROPOFOL 200 MG/20 ML VIAL IV ONE (11:55)
[2021-04-01] MEDS ORDERED: SUCCINYLCHOLINE 20 MG/ML ML IV ONE (11:55)
[2021-04-01] MEDS ORDERED: DEXAMETHASONE 10 MG/ML VIAL ONE (11:55)
[2021-04-01] MEDS ORDERED: fentaNYL 250 MCG/5 ML VIAL IV ONE (11:55)
[2021-04-01] MEDS ORDERED: ONDANSETRON 4 MG/2 ML VIAL ONE (11:55)
--- NOTE | 2021-04-01 12:05 | Internal Med Progress Note ---
SUBJECTIVE Subjective Patient information: Note initiated : 04/01/21 at 12:02 pm Service Date, if different from initiated Date: [] Patient: Corinne Crawford 85 y/o F admitted on 03/29/21 for right hip pain. Chief Complaint: [right hip fracture] Interval history: HISTORY OF PRESENT ILLNESS: Pleasant 85-year-old presented to the emergency department for acute right hip pain. This patient was ambulating in the bathroom with assistance by a family member when her leg gave out and she ended up landing on her right hip, then falling backwards hitting the back of her head. There was no loss of consciousness. The patient recently had a austen-hip arthroplasty of this extremity done by Dr. Huber within in the last 6 weeks. 03/31: Hemoglobin 6.6. INR 1.2. Subjective not obtained due to clinical situations. 04/01: Hemoglobin 10.6 after 3 unit pRBC transfusion. Currently undergoing surgery by orthopedic surgeon Dr. Burden. Constitutional Vitals: Vital Signs Temp Pulse Resp BP Pulse Ox 36.4 C 52 L 16 162/79 95 04/01/21 11:20 04/01/21 11:20 04/01/21 11:20 04/01/21 11:20 04/01/21 11:20 Period Temp Pulse Resp BP Sys/Mora Pulse Ox Last 24 Hr 36.1 C-36.9 C 52-57 16-20 145-167/63-79 95-97 Intake and Output 03/31/21 04/01/21 04/01/21 21:59 05:59 13:59 Intake Total 585 250 Output Total 1000 300 Balance 585 -750 -300 Weight 77.111 kg Intake & Output: Intake & Output 03/31/21 04/01/21 04/01/21 21:59 05:59 13:59 Intake Total 585 250 Output Total 1000 300 Balance 585 -750 -300 Weight 77.111 kg Intake: IV 260 250 Sodium Chloride 0.9% 250 ml @ 250 20 mls/hr IV .[id number] [facility] Rx#: [id number] Potassium Chloride 20 Meq In 260 Dextrose 5% in Water 250 ml @ 130 mls/hr IV ONCE ONE Rx#: [id number] Oral 0 Blood Product 325 Output: Urine Catheter Amount 1000 300 Other: Urine Appearance Clear Uretheral (Bower) Clear Urine Color Straw Uretheral (Bower) Straw Exam: Defer Head Head exam: Present atraumatic and normocephalic Eye Eye exam: Present EOMI and PERRL ENT ENT exam: Present mucous membranes moist, normal exam and normal external ear exam Neck Neck exam: Present normal inspection; Absent lymphadenopathy, tenderness and thyromegaly Respiratory Respiratory exam: Absent accessory muscle use, respiratory distress and wheezes Cardiovascular Cardiovascular exam: Present normal rate and rhythm; Absent JVD GI/Abdominal GI/Abdominal exam: Present normal bowel sounds and soft; Absent organomegaly and tenderness Extremities Exam Extremities exam: Present full ROM, normal capillary refill and normal inspection; Absent tenderness Back Exam Back exam: Present normal inspection Neurological Exam Neurological exam: Present alert, CN II-XII intact and oriented X3; Absent motor sensory deficit Psychiatric Psychiatric exam: Present normal affect and normal mood; Absent anxious and depressed Skin Skin exam: Present dry and intact OBJ DATA Labs CBC & Chem 7: 04/01/21 05:35 04/01/21 05:35 Labs: Abnormal Lab Results 04/01/21 04/01/21 03/31/21 05:35 05:35 05:39 RBC 3.43 L Hgb 10.6 L Hct 33.9 L MCV MCHC RDW 23.5 H MPV 11.9 H Neut % (Auto) 86.2 H Lymph % (Auto) 8.2 L Lymph # (Auto) 0.71 L Absolute Neutrophils POC PT PT 15.5 H POC INR INR 1.2 H Sodium Chloride 110 H Carbon Dioxide Creatinine Calcium 7.6 L Magnesium Alkaline Phosphatase 139 H Lactate Dehydrogenase Total Protein 5.7 L Albumin 2.6 L Albumin/Globulin Ratio 0.8 L 25-OH Vitamin D Total PTH Intact 03/31/21 03/31/21 03/30/21 05:39 05:39 16:15 RBC 1.97 L Hgb 6.6 L* Hct 22.9 L MCV 116.2 H MCHC 28.8 L RDW 19.1 H MPV 12.0 H Neut % (Auto) 84.9 H Lymph % (Auto) 7.5 L Lymph # (Auto) 0.48 L Absolute Neutrophils POC PT 38.6 H PT POC INR 3.4 H INR Sodium Chloride 110 H Carbon Dioxide 21 L Creatinine Calcium 7.2 L Magnesium Alkaline Phosphatase 155 H Lactate Dehydrogenase Total Protein Albumin 3.0 L Albumin/Globulin Ratio 25-OH Vitamin D Total PTH Intact 03/30/21 03/30/21 03/30/21 13:00 05:27 05:26 RBC Hgb Hct MCV MCHC RDW MPV Neut % (Auto) Lymph % (Auto) Lymph # (Auto) Absolute Neutrophils POC PT PT 30.0 H POC INR INR 2.7 H Sodium 146 H Chloride 113 H 112 H Carbon Dioxide 19 L 19 L Creatinine Calcium 6.8 L 6.3 L Magnesium 1.4 L Alkaline Phosphatase 189 H Lactate Dehydrogenase 541 H Total Protein Albumin 2.8 L Albumin/Globulin Ratio 0.8 L 25-OH Vitamin D Total PTH Intact 03/30/21 03/29/21 03/29/21 05:26 20:07 19:38 RBC 2.45 L 2.29 L Hgb 8.2 L 7.5 L Hct 28.0 L 26.1 L MCV 114.3 H 114.0 H MCHC 29.3 L 28.7 L RDW 19.6 H 19.9 H MPV 11.6 H 12.0 H Neut % (Auto) 88.5 H 82.8 H Lymph % (Auto) 6.9 L 9.2 L Lymph # (Auto) 0.68 L 0.70 L Absolute Neutrophils 8.73 H POC PT 39.3 H PT POC INR 3.5 H INR Sodium Chloride Carbon Dioxide Creatinine Calcium Magnesium Alkaline Phosphatase Lactate Dehydrogenase Total Protein Albumin Albumin/Globulin Ratio 25-OH Vitamin D Total PTH Intact 03/29/21 03/29/21 03/29/21 19:31 19:30 19:21 RBC Hgb Hct MCV MCHC RDW MPV Neut % (Auto) Lymph % (Auto) Lymph # (Auto) Absolute Neutrophils POC PT PT POC INR INR Sodium Chloride 111 H Carbon Dioxide 20 L Creatinine 1.2 H Calcium 5.4 L* Magnesium 0.7 L* Alkaline Phosphatase Lactate Dehydrogenase Total Protein Albumin Albumin/Globulin Ratio 25-OH Vitamin D Total PTH Intact 103.8 H 03/29/21 19:21 RBC Hgb Hct MCV MCHC RDW MPV Neut % (Auto) Lymph % (Auto) Lymph # (Auto) Absolute Neutrophils POC PT PT POC INR INR Sodium Chloride Carbon Dioxide Creatinine Calcium Magnesium Alkaline Phosphatase Lactate Dehydrogenase Total Protein Albumin Albumin/Globulin Ratio 25-OH Vitamin D Total < 5 L PTH Intact Meds: Medications Acetaminophen (Acetaminophen 325 Mg Tablet) 650 mg PO Q6HP PRN; Protocol PRN Reason: Per Pain Protocol/Fever > 101 Last Admin: 03/31/21 19:41 Dose: 650 mg Documented by: Hydrocodone Bitart/Acetaminophen (Hydrocodone/Apap 5/325mg Tablet) 1 tab PO Q4HP PRN PRN Reason: PAIN LEVEL 3-6 Last Admin: 04/01/21 03:02 Dose: 1 tab Documented by: Albuterol/Ipratropium (Ipratropium/Albuterol 3 Ml Ampul.Neb) 3 ml NEB Q4HP PRN PRN Reason: Shortness Of Breath Atenolol (Atenolol 50 Mg Tablet) 50 mg PO DAILY [facility] Last Admin: 04/01/21 08:23 Dose: 50 mg Documented by: Calcium/Vitamin D (Calcium W/Vit D3 500 Mg Tablet) 1,000 mg PO DAILY [facility] Last Admin: 03/31/21 10:51 Dose: Not Given Documented by: Cyanocobalamin (Cyanocobalamin (Vitamin B-12) 500 Mcg Tablet) 2,500 mcg PO DAILY [facility] Last Admin: 03/31/21 10:52 Dose: Not Given Documented by: Docusate Sodium (Docusate Sodium 100 Mg Capsule) 100 mg PO BID [facility] Last Admin: 03/31/21 21:37 Dose: 100 mg Documented by: Famotidine (Famotidine/Pf 20 Mg/2 Ml Vial) 20 mg IV HS [facility] Last Admin: 03/31/21 20:16 Dose: 20 mg Documented by: Ferrous Sulfate (Ferrous Sulfate 325 Mg Tablet) [facility] Last Admin: 03/31/21 17:04 Dose: Not Given Documented by: Gemfibrozil (Gemfibrozil 600 Mg Tablet) 600 mg PO BID [facility] Last Admin: 03/31/21 20:14 Dose: 600 mg Documented by: Hydralazine HCl (Hydralazine 20 Mg/Ml Vial) 0 mg IV Q2HP PRN PRN Reason: Hypertension Last Admin: 03/31/21 20:16 Dose: 10 mg Documented by: Hydroxyzine HCl (Hydroxyzine 25 Mg Tablet) 25 mg PO QHS [facility] Last Admin: 03/31/21 20:14 Dose: 25 mg Documented by: Potassium Chloride 40 meq/ (Dextrose) 520 mls @ 130 mls/hr IV UD PRN PRN Reason: Potassium < 3 Magnesium Sulfate (Magnesium Sulfate) 2 gm in 50 mls @ 50 mls/hr IV UD PRN PRN Reason: Magnesium </= 1.6 Last Infusion: 03/30/21 01:45 Dose: Infused Documented by: Cefazolin Sodium 2 gm/ (Dextrose) 50 mls @ 100 mls/hr IV PREOP [facility]; Protocol Stop: 04/01/21 18:00 Last Admin: 04/01/21 11:47 Dose: 100 mls/hr Documented by: Levothyroxine Sodium (Levothyroxine 50 Mcg Tablet) 50 mcg PO QAMAC [facility] Last Admin: 03/31/21 10:51 Dose: Not Given Documented by: Meclizine HCl (Meclizine 25 Mg Tablet) 12.5 mg PO BIDP PRN PRN Reason: Vertigo Last Admin: 03/30/21 21:28 Dose: 12.5 mg Documented by: Melatonin (Melatonin 3 Mg Tablet) 3 mg PO HS PRN PRN Reason: Sleep Last Admin: 03/30/21 21:28 Dose: 3 mg Documented by: Morphine Sulfate (Morphine 4 Mg/Ml Vial) 0 mg IV Q3HP PRN PRN Reason: Pain Last Admin: 03/31/21 03:55 Dose: 3 mg Documented by: Ondansetron HCl (Ondansetron 4 Mg/2 Ml Vial) 4 mg IV Q4HP PRN PRN Reason: Nausea And Vomiting Polyethylene Glycol (Polyethylene Glycol 3350 17 Gm Packet) 17 gm PO DAILYP PRN PRN Reason: Constipation Potassium Chloride (Potassium Chloride 20 Meq Tablet) 40 meq PO UD PRN PRN Reason: Potssium is 3-3.5 Potassium Chloride (Potassium Chloride 20 Meq Tablet) 40 meq PO UD PRN PRN Reason: Potassium < 3 Pregabalin (Pregabalin 25 Mg Capsule) 50 mg PO QDAY [facility] Last Admin: 04/01/21 08:23 Dose: 50 mg Documented by: Promethazine HCl (Promethazine 25 Mg/Ml Vial) 12.5 mg IV Q6HP PRN PRN Reason: Nausea And Vomiting Senna (Sennosides 1 Tablet) 2 tab PO DAILYP PRN PRN Reason: Constipation Last Admin: 03/31/21 21:37 Dose: 2 tab Documented by: Sodium Chloride (0.9 % Sodium Chloride 10 Ml Syringe) 10 ml IV Q8 [facility] Last Admin: 04/01/21 05:46 Dose: 10 ml Documented by: Sodium Chloride (0.9 % Sodium Chloride 10 Ml Syringe) 10 ml IV Q12 [facility] Last Admin: 04/01/21 11:35 Dose: 10 ml Documented by: Sodium Chloride (0.9 % Sodium Chloride 10 Ml Syringe) 10 ml IV UD PRN PRN Reason: Anesthesia Vitamin D (Vitamin D3 400 Unit Tablet) 800 unit PO DAILY [facility] Last Admin: 03/31/21 10:52 Dose: Not Given Documented by: A/P Assessment and plan (1) 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 plan for discharge to SNF 2. follow up with RYDER in 2 weeks for staple removal and post op check 3. Walker for ambulation 4. pillow between legs when sleeping 5. ASA 81 mg BID for 30 days for DVT prophylaxis 6. medicine per hospitalists (3) Hyperlipidemia: Status: Chronic Qualifiers: Hyperlipidemia type: unspecified Qualified Code(s): E78.5 - Hyperlipidemia, unspecified (4) GERD (gastroesophageal reflux disease): Status: Chronic Qualifiers: Esophagitis presence: with esophagitis Qualified Code(s): K21.0 - Gastro-esophageal reflux disease with esophagitis (5) Anemia, iron deficiency: Status: Chronic Qualifiers: Iron deficiency anemia type: unspecified iron deficiency Qualified Code(s): D50.9 - Iron deficiency anemia, unspecified (6) Hypokalemia: Status: Chronic (7) Hypertension: Status: Chronic Qualifiers: Hypertension type: essential hypertension Qualified Code(s): I10 - Essential (primary) hypertension (8) Hypothyroidism: Status: Chronic (9) COPD (chronic obstructive pulmonary disease): Status: Chronic Qualifiers: COPD type: chronic bronchitis Chronic bronchitis type: mucopurulent Qualified Code(s): J41.1 - Mucopurulent chronic bronchitis Narrative A/P Narrative: Assessment and plan: 1. Right proximal femur periprosthetic fracture: Inpatient MedSurg Orthopedic surgeon Dr. Atkins consulted, surgery now N.p.o. for now Bedrest for now Physical and Occupational Therapy evaluation and treatment after the surgery Tylenol as needed mild pain [place] as needed moderate pain Morphine as needed severe pain #2 anemia: Hemoglobin 10.6 after 3 unit pRBC transfusion on 03/31 Repeat CBC in the morning to trend H&H #3 history of COPD, stable: Continue bronchodilator as needed for wheezing or shortness of breath #4 history of hypothyroidism: Continue thyroid replacement therapy 5. History of essential hypertension's: Currently normotensive Continue atenolol 6. History of mixed dyslipidemia: Continue gemfibrozil 7. Hypokalemia: RESOLVED Continue potassium replacement according to protocol CMP in the morning to trend serum potassium level and repeat replacement as needed Also check serum magnesium level and will replace if needed 8. Vitamin D deficiency and hypocalcemia: Continue vitamin D calcium oral replacement Stop PPI and switch to H2 inhibitor Hold diuretics GI prophylaxis: Famotidine DVT prophylaxis: SCDs CODE STATUS: Okay for intubations for the procedures but otherwise DNI DNR after the surgery Prognosis: Stable Dispositions: Inpatient MedSurg Time Spent With Patient Time: Total time spent is greater than 50% in coordination of care (as documented) at patient's floor/unit and/or counseling patient: QUALITY VTE Deep Vein Thrombosis/Pulmonary Embolism Present on Admission: No
[2021-04-01] MEDS ORDERED: BENZOCAINE/MENTHOL 1 LOZENGE PO PRN (13:23)
[2021-04-01] MEDS ORDERED: diphenhydrAMINE 50 MG/ML VIAL IV PRN (13:23)
[2021-04-01] MEDS ORDERED: ACETAMINOPHEN 1,000 MG/100 ML BAG IV ONE (13:23)
[2021-04-01] MEDS ORDERED: MEPERIDINE 25 MG/ML VIAL IV PRN (13:23)
[2021-04-01] MEDS ORDERED: PROMETHAZINE 25 MG/ML VIAL IV PRN (13:23)
[2021-04-01] MEDS ORDERED: IPRATROPIUM/ALBUTEROL 3 ML AMPUL.NEB NEB PRN (13:23)
[2021-04-01] MEDS ORDERED: NALOXONE HCL 0.4 MG/ML VIAL IV PRN (13:23)
[2021-04-01] MEDS ORDERED: LACTATED RINGERS 250 ML IV PRN (13:23)
[2021-04-01] MEDS ORDERED: LACTATED RINGERS 1,000 ML IV SCH (13:30)
[2021-04-01] MEDS ORDERED: TRANEXAMIC ACID 1,000 MG/10 ML VIAL IV SCH (13:36)
--- NOTE | 2021-04-01 13:36 | Brief Operative Note ---
Brief Operative Note Date of procedure: 04/01/21 Pre-op diagnosis: right hip periprostheric femur fracture Post-op diagnosis: same Procedure: right hip periprosthetic fracture revision to hemiarthroplasty Grafts/Implants: Yes Anesthesia: GETA Findings: 3 part fx with loose stem Complications: none Surgeon: Christian Burden Specialty Plant Supervisor: Gio Zamora Estimated blood loss (cc): 120.0 Specimens Removed/Pathology: none sent Condition: stable Disposition: PACU
[2021-04-01] MEDS ORDERED: GENTAMICIN SULFATE 800 MG/20 ML VIAL IR ONE (13:39)
--- NOTE | 2021-04-01 13:57 | Discharge Plan ---
Discharge Instructions - [facility] Patient Instructions Total Hip Protocol: Follow activity instructions as provided by Physical Therapy. Discharge Plan Patient/Caregiver Discharge Instructions Activity: ambulate only with your walker and as per physical therapy Diet: Regular Diet Prescriptions: New docusate sodium 100 mg Capsule 100 mg PO BID Qty: 60 RF: 0 Hydrocodone/Apap 5/325mg [[place] 5/325mg] 1 tab PO Q4HP MDD 10 Qty: 75 RF: 0 aspirin [Ecotrin Low Strength] 81 mg tablet,delayed release (DR/EC) 81 mg PO BID Qty: 60 RF: 0 No Action albuterol sulfate [ProAir HFA] 90 mcg/actuation HFA aerosol inhaler 2 puff INHALATION Q6H PRN (Reason: Dyspnea) Qty: 18 RF: 0 atenolol 50 mg tablet 50 mg PO DAILY Qty: 90 RF: 2 pregabalin 50 mg capsule 50 mg PO QDAY Qty: 30 RF: 2 furosemide [Lasix] 40 mg tablet 20 mg PO QAM RF: 0 gemfibrozil 600 mg tablet 600 mg PO BID Qty: 180 RF: 1 levothyroxine 50 mcg tablet 50 mcg PO QDAY Qty: 90 RF: 1 meloxicam 7.5 mg tablet 7.5 mg PO QDAY Qty: 180 RF: 2 clopidogrel 75 mg tablet 75 mg PO DAILY Qty: 30 RF: 2 hydroxyzine HCl 25 mg tablet 25 mg PO QHS Qty: 30 RF: 1 ferrous sulfate 325 mg (65 mg iron) tablet 325 mg PO BID Qty: 60 RF: 3 potassium chloride 20 mEq tablet extended release 20 meq PO QDAY Qty: 90 RF: 2 tramadol 50 mg tablet 50 mg PO BID Qty: 60 RF: 0 cyanocobalamin (vitamin B-12) 2,500 mg PO QDAY RF: 0 magnesium sulfate 100 mg capsule 100 mg PO QDAY RF: 0 melatonin 3 mg tablet 3 mg PO HS PRN (Reason: Sleep) RF: 0 fexofenadine [Chitra Allergy] 180 mg tablet 180 mg PO Q24H Qty: 30 RF: 4 meclizine 12.5 mg tablet 12.5 mg PO BID Qty: 60 RF: 1 ergocalciferol (vitamin D2) 400 UNIT tablet 400 unit PO DAILY RF: 0 omeprazole 20 MG capsule 20 mg PO BIDAC RF: 0 omega-3 fatty acids-fish oil 1 EACH capsule 1,000 mg PO DAILY RF: 0 hydrocodone-acetaminophen 7.5-325 mg tablet 1 tab PO Q6H PRN (Reason: pain) Qty: 60 RF: 0 aspirin 81 mg capsule 81 mg PO BID Qty: 60 RF: 0 Other Ambulatory Orders: Physical Therapy DC - [facility] (Routine) Location: None Selected Ordered By: Gio Zamora Toilet Riser Discharge Order (ONCE) Location: None Selected Ordered By: Gio Zamora Walker (ONCE) Location: None Selected Ordered By: Gio Zamora Follow Up Plan Follow up with: Winsome Cordova ARNP [Primary Care Provider] - Gio Zamora PA-C [Physician Wood Floor Layer] - Patient Disposition: Xfer SNF Prognosis: Fair Rehab Potential: Fair I certify that the patient requires SNF services: Yes Overall status at discharge: patient is not back to baseline Discharge Orders: Discharge Order (Routine); Ordered 04/01/21 Ordered By: Gio Zamora Discharge Comment: Pt cleared by Ortho when clear by Hospitalist
[2021-04-01] MEDS: fentaNYL 100 MCG/2 ML VIAL IV PRN ×3 (14:16→14:29)
--- NOTE | 2021-04-01 14:18 | Operative Note ---
DATE OF OPERATION: 04/01/2021 PREOPERATIVE DIAGNOSIS: Right hip periprosthetic fracture. POSTOPERATIVE DIAGNOSES: Right hip periprosthetic fracture. PROCEDURE: 1. Revision of a periprosthetic fracture to a long-stem hemiarthroplasty and removal of the prior hemiarthroplasty. 2. Open reduction and internal fixation of the fracture. SURGEON: Christian Burden M.D. SENIOR CONTRACTS ADMINISTRATOR: Gio Zamora PA-C. The PA's assistance was required for the safe and efficient completion of the entire case. This provider's expertise and technical skill were required throughout the case. The PA assisted with preoperative coordination, intraoperative retraction, wound closure, dressing and splint application, as well as postoperative documentation and care coordination. ANESTHESIA: General LMA anesthesia. COMPLICATIONS: None. ESTIMATED BLOOD LOSS: 120 mL. IMPLANTS USED: Aereo Catholic Modular stem, which was a 265 mm length stem, 16 mm in diameter with a standard thickness neck length with a 44 mm bipolar head. COMPLICATIONS: None. BLOOD PRODUCTS GIVEN: None. Tranexamic and preoperative antibiotics were given. DESCRIPTION OF PROCEDURE: The patient was brought to the operating room, put to sleep with general LMA anesthesia. Once asleep, the patient had the right leg sterilely prepped and draped in a left lateral position. Once done, we then recreated the incision from which the prior surgery had been done. This was an anterior lateral approach incision. This was dissected down, identified the comminution of the proximal femur with an unstable stem. I opened up the posterior capsule, dislocated the remnants of the hemiarthroplasty, and this was removed with a small amount of ingrowth on the component. After the stem was removed from the fracture, we performed an open reduction internal fixation of the 3-part fracture with cables x2. We then reamed up for the size 15 component. We took an x-ray that showed excellent alignment. We then reamed up to a size 16. This was a much better fit. We tapped into place a 16 mm Catholic Modular distal stem. The proximal body was a 90 mm proximal body with a standard neck length. This was trialed in 15 degrees of anteversion and then reduced. This was very stable throughout the arc. We recreated her length. We irrigated thoroughly. We then placed the final 90 mm proximal body with 15 degrees of anteversion, which was connected together with 100 Saavedra-meters of force on the screw. Once this was confirmed, we then placed a standard ceramic ball in a 44 mm bipolar head. This was placed onto the implant and reduced. Hip was very stable. We then re-repaired the anterior lateral incision site and release of the gluteus medius. These were reattached to the greater trochanter through drill holes x6 stitches. Once done, we were able to irrigate thoroughly and repaired the IT band and the gluteus channing with #1 Stratafix and then a Stratafix subcutaneous layer and alpa. We had thoroughly irrigated the wound. There was about 120 mL of blood loss during the case. Alpa were placed for the final layer and a sterile bandage. The patient left the operating room in good condition. RBH:myke Job ID: [id number] Doc ID: [id number] Christian Burden MD
[2021-04-01] MEDS: FERROUS SULFATE 325 MG TABLET PO SCH ×2 (14:30→17:37)
[2021-04-01] MEDS: DOCUSATE SODIUM 100 MG CAPSULE PO SCH ×2 (14:31→20:47)
[2021-04-01] MEDS: GEMFIBROZIL 600 MG TABLET PO SCH ×2 (14:31→20:47)
--- NOTE | 2021-04-01 14:44 | XRay Report ---
INDICATION: Post-op Total Hip TECHNIQUE: Intraoperative AP right hip. Postoperative AP pelvis and right hip. Crosstable lateral right hip COMPARISON: Preoperative evaluation dated 03/29/2021 FINDINGS: Initial examination demonstrates right hip fracture. There is partial placement of prosthetic right hip. Postoperative examination demonstrates right total hip arthroplasty. Femoral stem is in anatomic position. There are cerclage wires. Alignment is anatomic. There is postsurgical soft tissue gas. There are skin katerina overlying the right hip. IMPRESSION: Right total hip arthroplasty as above Interpreted and Authenticated by: Raymundo Singleton 04/01/21
[2021-04-01] MEDS: morphine 4 MG/ML VIAL IV PRN ×2 (14:50→18:56)
[2021-04-01] MEDS ORDERED: KETOROLAC 30 MG/ML VIAL ONE (15:40)
[2021-04-01] MEDS: LACTATED RINGERS 1,000 ML IV SCH (15:46)
[2021-04-01] MEDS: CYANOCOBALAMIN (VITAMIN B-12) 500 MCG TABLET PO SCH (15:52)
[2021-04-01] MEDS: CALCIUM W/VIT D3 500 MG TABLET PO SCH (15:52)
[2021-04-01] MEDS: LEVOTHYROXINE 50 MCG TABLET PO SCH (15:52)
[2021-04-01] MEDS: VITAMIN D3 400 UNIT TABLET PO SCH (15:53)
[2021-04-01] MEDS: hydrALAZINE 20 MG/ML VIAL IV PRN (16:04)
[2021-04-01] MEDS: KETOROLAC 15 MG/ML VIAL IV PRN (16:46)
[2021-04-01] MEDS: ceFAZolin 1 GM VIAL IV SCH (20:03)
[2021-04-01] MEDS: hydrOXYzine 25 MG TABLET PO SCH (20:47)
[2021-04-01] MEDS: FAMOTIDINE/PF 20 MG/2 ML VIAL IV SCH (20:47)
[2021-04-02] MEDS: ACETAMINOPHEN 325 MG TABLET PO PRN (00:53)
[2021-04-02] MEDS: 0.9 % SODIUM CHLORIDE 10 ML SYRINGE IV SCH ×9 (00:56→21:38)
[2021-04-02] MEDS: HYDROcodone/APAP 5/325MG TABLET PO PRN ×2 (01:24→09:48)
[2021-04-02] MEDS: ceFAZolin 1 GM VIAL IV SCH (03:54)
[2021-04-02] MEDS: LACTATED RINGERS 1,000 ML IV SCH ×3 (04:42→21:30)
[2021-04-02] MEDS: LEVOTHYROXINE 50 MCG TABLET PO SCH (07:45)
[2021-04-02] MEDS: FERROUS SULFATE 325 MG TABLET PO SCH ×2 (07:45→17:23)
[2021-04-02 08:18] LABS: Basophils # (Auto) 0.01 K/mcL (0.00-0.30); Basophils % (Auto) 0.1 % (0.0-2.0); Eosinophils # (Auto) 0 K/mcL (0.00-0.70); Eosinophils % (Auto) 0 % (0.0-7.0); Hematocrit 33.5 % (34.1-44.9); Hemoglobin 10.3 g/dL (11.2-15.7); Lymphocytes # (Auto) 0.54 K/mcL (1.50-4.80); Lymphocytes % (Auto) 3.6 % (15.5-49.0); Mean Cell Volume 102.4 fL (80.0-100.0); Mean Corpuscular HGB Conc 30.7 g/dL (31.0-36.0); Mean Platelet Volume 12.3 fL (7.4-10.4); Monocytes # (Auto) 0.49 K/mcL (0.10-0.90); Monocytes % (Auto) 3.3 % (1.0-12.0); Platelet Count 235 K/mcL (140-440); RBC 3.27 M/mcL (3.59-5.38); Red Cell Distribution Width 22.5 % (11.5-14.5)
[2021-04-02 08:30] LABS: ALT/SGPT 7 U/L (<40); AST/SGOT 19 U/L (<32); Albumin 2.3 gm/dL (3.2-5.2); Albumin/Globulin Ratio 0.7 (1.0-2.3); Alkaline Phosphatase 130 U/L (39-117); Bilirubin,Total 0.3 mg/dL (0.1-1.0); Blood Urea Nitrogen 16 mg/dL (8-23); Calcium 7.7 mg/dL (8.6-10.4); Carbon Dioxide 24 mmol/L (22-30); Chloride 105 mmol/L (96-108); Globulin 3.1 gm/dL (2.2-3.7); Glomerular Filtration Rate 45; Glucose 152 mg/dL (70-105)
--- NOTE | 2021-04-02 09:20 | Orthopedic Progress Note ---
SUBJECTIVE Subjective Patient information: Note initiated : 04/02/21 at 9:17 am Service Date, if different from initiated Date: [] Patient: Corinne Crawford 85 y/o F admitted on 03/29/21 for right hip pain. Chief Complaint: [minimal pain and up to toilet with no nausea nor vomiting] Constitutional Vitals: Vital Signs Temp Pulse Resp BP Pulse Ox 97 F 58 L 16 138/60 95 04/02/21 07:26 04/02/21 07:26 04/02/21 07:26 04/02/21 07:26 04/02/21 07:48 Period Temp Pulse Resp BP Sys/Mora Pulse Ox Last 24 Hr 96.6 F-97.6 F 47-76 14-18 108-181/48-92 93-100 Intake and Output 04/01/21 04/02/21 04/02/21 21:59 05:59 13:59 Intake Total 2180 2840 Output Total 300 250 Balance 1880 2590 Weight 170 lb 5 oz Intake & Output: Intake & Output 04/01/21 04/02/21 04/02/21 21:59 05:59 13:59 Intake Total 2180 2840 Output Total 300 250 Balance 1880 2590 Weight 170 lb 5 oz Intake: IV 1000 Lactated Ringers 1,000 ml @ 100 1000 mls/hr IV .Q10H [facility] Rx#: [id number] Oral 480 1840 IV - Manual Only 1700 Output: Urine Catheter Amount 250 Estimated Blood Loss 300 Other: Meal Dinner Breakfast Percent of Meal Consumed 100% 50% Feeding Ability Independent Independent Urine Appearance Clear Sediment Uretheral (Bower) Clear Urine Color Bright Yellow Straw Uretheral (Bower) Dark Yellow Straw Urine Odor Strong Stool Size Large Stool Color Brown Stool Consistency Soft Formed # Bowel Movements 1 Expanded Lower Extremity Exam Hip exam: Present ecchymosis and swelling Gait: Present antalgic and observed and normal OBJ DATA Labs CBC & Chem 7: 04/02/21 05:35 04/02/21 05:35 Labs: Abnormal Lab Results 04/02/21 04/02/21 04/01/21 05:35 05:35 05:35 WBC 15.0 H RBC 3.27 L Hgb 10.3 L Hct 33.5 L MCV 102.4 H MCHC 30.7 L RDW 22.5 H MPV 12.3 H Neut % (Auto) 93.0 H Lymph % (Auto) 3.6 L Lymph # (Auto) 0.54 L Absolute Neutrophils 13.92 H POC PT PT POC INR INR Chloride 110 H Carbon Dioxide Glucose 152 H Calcium 7.7 L 7.6 L Alkaline Phosphatase 130 H 139 H Total Protein 5.4 L 5.7 L Albumin 2.3 L 2.6 L Albumin/Globulin Ratio 0.7 L 0.8 L 04/01/21 03/31/21 03/31/21 05:35 05:39 05:39 WBC RBC 3.43 L Hgb 10.6 L Hct 33.9 L MCV MCHC RDW 23.5 H MPV 11.9 H Neut % (Auto) 86.2 H Lymph % (Auto) 8.2 L Lymph # (Auto) 0.71 L Absolute Neutrophils POC PT PT 15.5 H POC INR INR 1.2 H Chloride 110 H Carbon Dioxide 21 L Glucose Calcium 7.2 L Alkaline Phosphatase 155 H Total Protein Albumin 3.0 L Albumin/Globulin Ratio 03/31/21 03/30/21 03/30/21 05:39 16:15 13:00 WBC RBC 1.97 L Hgb 6.6 L* Hct 22.9 L MCV 116.2 H MCHC 28.8 L RDW 19.1 H MPV 12.0 H Neut % (Auto) 84.9 H Lymph % (Auto) 7.5 L Lymph # (Auto) 0.48 L Absolute Neutrophils POC PT 38.6 H PT POC INR 3.4 H INR Chloride 113 H Carbon Dioxide 19 L Glucose Calcium 6.8 L Alkaline Phosphatase Total Protein Albumin Albumin/Globulin Ratio Meds: Medications Acetaminophen (Acetaminophen 325 Mg Tablet) 650 mg PO Q6HP PRN; Protocol PRN Reason: Per Pain Protocol/Fever > 101 Last Admin: 04/02/21 00:53 Dose: 650 mg Documented by: Hydrocodone Bitart/Acetaminophen (Hydrocodone/Apap 5/325mg Tablet) 1 tab PO Q4HP PRN PRN Reason: PAIN LEVEL 3-6 Last Admin: 04/02/21 01:24 Dose: 1 tab Documented by: Albuterol/Ipratropium (Ipratropium/Albuterol 3 Ml Ampul.Neb) 3 ml NEB Q4HP PRN PRN Reason: Shortness Of Breath Atenolol (Atenolol 50 Mg Tablet) 50 mg PO DAILY [facility] Last Admin: 04/01/21 08:23 Dose: 50 mg Documented by: Calcium/Vitamin D (Calcium W/Vit D3 500 Mg Tablet) 1,000 mg PO DAILY [facility] Last Admin: 04/01/21 15:52 Dose: Not Given Documented by: Cyanocobalamin (Cyanocobalamin (Vitamin B-12) 500 Mcg Tablet) 2,500 mcg PO DAILY [facility] Last Admin: 04/01/21 15:52 Dose: Not Given Documented by: Docusate Sodium (Docusate Sodium 100 Mg Capsule) 100 mg PO BID [facility] Last Admin: 04/01/21 20:47 Dose: 100 mg Documented by: Famotidine (Famotidine/Pf 20 Mg/2 Ml Vial) 20 mg IV HS [facility] Last Admin: 04/01/21 20:47 Dose: 20 mg Documented by: Ferrous Sulfate (Ferrous Sulfate 325 Mg Tablet) [facility] Last Admin: 04/01/21 17:37 Dose: 325 mg Documented by: Gemfibrozil (Gemfibrozil 600 Mg Tablet) 600 mg PO BID [facility] Last Admin: 04/01/21 20:47 Dose: 600 mg Documented by: Hydralazine HCl (Hydralazine 20 Mg/Ml Vial) 0 mg IV Q2HP PRN PRN Reason: Hypertension Last Admin: 04/01/21 16:04 Dose: 20 mg Documented by: Hydroxyzine HCl (Hydroxyzine 25 Mg Tablet) 25 mg PO QHS [facility] Last Admin: 04/01/21 20:47 Dose: 25 mg Documented by: Potassium Chloride 40 meq/ (Dextrose) 520 mls @ 130 mls/hr IV UD PRN PRN Reason: Potassium < 3 Magnesium Sulfate (Magnesium Sulfate) 2 gm in 50 mls @ 50 mls/hr IV UD PRN PRN Reason: Magnesium </= 1.6 Last Infusion: 03/30/21 01:45 Dose: Infused Documented by: Lactated Ringer's (Lactated Ringers) 1,000 mls @ 100 mls/hr IV .Q10H [facility] Last Admin: 04/02/21 04:42 Dose: 100 mls/hr Documented by: Ketorolac Tromethamine (Ketorolac 15 Mg/Ml Vial) 15 mg IV Q6HP PRN PRN Reason: Per Pain Protocol Last Admin: 04/01/21 16:46 Dose: 15 mg Documented by: Levothyroxine Sodium (Levothyroxine 50 Mcg Tablet) 50 mcg PO QAMAC [facility] Last Admin: 04/01/21 15:52 Dose: Not Given Documented by: Meclizine HCl (Meclizine 25 Mg Tablet) 12.5 mg PO BIDP PRN PRN Reason: Vertigo Last Admin: 03/30/21 21:28 Dose: 12.5 mg Documented by: Melatonin (Melatonin 3 Mg Tablet) 3 mg PO HS PRN PRN Reason: Sleep Last Admin: 03/30/21 21:28 Dose: 3 mg Documented by: Morphine Sulfate (Morphine 4 Mg/Ml Vial) 0 mg IV Q3HP PRN PRN Reason: Pain Last Admin: 04/01/21 18:56 Dose: 2 mg Documented by: Ondansetron HCl (Ondansetron 4 Mg/2 Ml Vial) 4 mg IV Q4HP PRN PRN Reason: Nausea And Vomiting Polyethylene Glycol (Polyethylene Glycol 3350 17 Gm Packet) 17 gm PO DAILYP PRN PRN Reason: Constipation Potassium Chloride (Potassium Chloride 20 Meq Tablet) 40 meq PO UD PRN PRN Reason: Potssium is 3-3.5 Potassium Chloride (Potassium Chloride 20 Meq Tablet) 40 meq PO UD PRN PRN Reason: Potassium < 3 Pregabalin (Pregabalin 25 Mg Capsule) 50 mg PO QDAY [facility] Last Admin: 04/01/21 08:23 Dose: 50 mg Documented by: Promethazine HCl (Promethazine 25 Mg/Ml Vial) 12.5 mg IV Q6HP PRN PRN Reason: Nausea And Vomiting Senna (Sennosides 1 Tablet) 2 tab PO DAILYP PRN PRN Reason: Constipation Last Admin: 03/31/21 21:37 Dose: 2 tab Documented by: Sodium Chloride (0.9 % Sodium Chloride 10 Ml Syringe) 10 ml IV Q8 [facility] Last Admin: 04/02/21 05:52 Dose: 10 ml Documented by: Sodium Chloride (0.9 % Sodium Chloride 10 Ml Syringe) 10 ml IV Q12 [facility] Last Admin: 04/01/21 20:03 Dose: 10 ml Documented by: Sodium Chloride (0.9 % Sodium Chloride 10 Ml Syringe) 10 ml IV UD PRN PRN Reason: Anesthesia Sodium Chloride (0.9 % Sodium Chloride 10 Ml Syringe) 10 ml IV Q8 [facility] Last Admin: 04/02/21 05:52 Dose: Not Given Documented by: Vitamin D (Vitamin D3 400 Unit Tablet) 800 unit PO DAILY [facility] Last Admin: 04/01/21 15:53 Dose: Not Given Documented by: A/P Narrative A/P Narrative: dc to home with home health or just dc home if has help Time Spent With Patient Time: Total time spent is greater than 50% in coordination of care (as documented) at patient's floor/unit and/or counseling patient: Total time spent with greater than 50% in coordination of care (as documented) at patient's floor/unit and/or counseling patient:: 15 - 24 minutes
[2021-04-02] MEDS: CYANOCOBALAMIN (VITAMIN B-12) 500 MCG TABLET PO SCH (09:44)
[2021-04-02] MEDS: ATENOLOL 50 MG TABLET PO SCH (09:45)
[2021-04-02] MEDS: DOCUSATE SODIUM 100 MG CAPSULE PO SCH ×2 (09:45→21:52)
[2021-04-02] MEDS: PREGABALIN 25 MG CAPSULE PO SCH (09:45)
[2021-04-02] MEDS: CALCIUM W/VIT D3 500 MG TABLET PO SCH (09:45)
[2021-04-02] MEDS: VITAMIN D3 400 UNIT TABLET PO SCH (09:45)
[2021-04-02] MEDS: GEMFIBROZIL 600 MG TABLET PO SCH ×2 (09:45→21:52)
--- NOTE | 2021-04-02 13:17 | Internal Med Progress Note ---
SUBJECTIVE Subjective Patient information: Note initiated : 04/02/21 at 1:14 pm Service Date, if different from initiated Date: [] Patient: Corinne Crawford 85 y/o F admitted on 03/29/21 for right hip pain. Chief Complaint: [Right hip fracture] Interval history: HISTORY OF PRESENT ILLNESS: Pleasant 85-year-old presented to the emergency department for acute right hip pain. This patient was ambulating in the bathroom with assistance by a family member when her leg gave out and she ended up landing on her right hip, then falling backwards hitting the back of her head. There was no loss of consciousness. The patient recently had a austen-hip arthroplasty of this extremity done by Dr. Huber within in the last 6 weeks. 03/31: Hemoglobin 6.6. INR 1.2. Subjective not obtained due to clinical situations. 04/01: Hemoglobin 10.6 after 3 unit pRBC transfusion. Currently undergoing surgery by orthopedic surgeon Dr. Burden. 04/02: Status post ORIF and revisions of previous right hip hemiarthroplasty and placement of a long stem hemiarthroplasty by Dr. Atkins on 04/01. Currently denies any hip pain. Denies any fever or chills. Denies any shortness of breath. Constitutional Vitals: Vital Signs Temp Pulse Resp BP Pulse Ox 36.2 C 61 18 139/66 94 04/02/21 11:36 04/02/21 11:36 04/02/21 11:36 04/02/21 11:36 04/02/21 11:36 Period Temp Pulse Resp BP Sys/Mora Pulse Ox Last 24 Hr 35.9 C-36.4 C 47-76 14-18 108-181/48-92 93-100 Intake and Output 04/01/21 04/02/21 04/02/21 21:59 05:59 13:59 Intake Total 2180 2840 100 Output Total 300 250 Balance 1880 2590 100 Weight 77.252 kg Intake & Output: Intake & Output 04/01/21 04/02/21 04/02/21 21:59 05:59 13:59 Intake Total 2180 2840 100 Output Total 300 250 Balance 1880 2590 100 Weight 77.252 kg Intake: IV 1000 100 Lactated Ringers 1,000 ml @ 100 1000 mls/hr IV .Q10H [facility] Rx#: [id number] Oral 480 1840 IV - Manual Only 1700 Output: Urine Catheter Amount 250 Estimated Blood Loss 300 Other: Meal Dinner Breakfast Percent of Meal Consumed 100% 50% Feeding Ability Independent Independent Urine Appearance Clear Sediment Uretheral (Bower) Clear Urine Color Bright Yellow Straw Uretheral (Bower) Dark Yellow Straw Urine Odor Strong Stool Size Moderate Stool Color Brown Stool Consistency Soft Loose # Voids 1 # Bowel Movements 1 General appearance: cooperative and no acute distress Exam: Defer Head Head exam: Present atraumatic and normocephalic Eye Eye exam: Present EOMI and PERRL ENT ENT exam: Present mucous membranes moist, normal exam and normal external ear exam Neck Neck exam: Present normal inspection; Absent lymphadenopathy, tenderness and thyromegaly Respiratory Respiratory exam: Absent accessory muscle use, respiratory distress and wheezes Cardiovascular Cardiovascular exam: Present normal rate and rhythm; Absent JVD GI/Abdominal GI/Abdominal exam: Present normal bowel sounds and soft; Absent organomegaly and tenderness Extremities Exam Extremities exam: Present normal capillary refill; Absent full ROM, normal inspection and tenderness Additional comments: Right lateral hip covered by surgical dressing, no tenderness to palpation Neurological Exam Neurological exam: Present alert, CN II-XII intact and oriented X3; Absent motor sensory deficit Psychiatric Psychiatric exam: Present normal affect and normal mood; Absent anxious and depressed Skin Skin exam: Present dry and intact OBJ DATA Labs CBC & Chem 7: 04/02/21 05:35 04/02/21 05:35 Labs: Abnormal Lab Results 04/02/21 04/02/21 04/01/21 05:35 05:35 05:35 WBC 15.0 H RBC 3.27 L Hgb 10.3 L Hct 33.5 L MCV 102.4 H MCHC 30.7 L RDW 22.5 H MPV 12.3 H Neut % (Auto) 93.0 H Lymph % (Auto) 3.6 L Lymph # (Auto) 0.54 L Absolute Neutrophils 13.92 H POC PT PT POC INR INR Chloride 110 H Carbon Dioxide Glucose 152 H Calcium 7.7 L 7.6 L Alkaline Phosphatase 130 H 139 H Total Protein 5.4 L 5.7 L Albumin 2.3 L 2.6 L Albumin/Globulin Ratio 0.7 L 0.8 L 04/01/21 03/31/21 03/31/21 05:35 05:39 05:39 WBC RBC 3.43 L Hgb 10.6 L Hct 33.9 L MCV MCHC RDW 23.5 H MPV 11.9 H Neut % (Auto) 86.2 H Lymph % (Auto) 8.2 L Lymph # (Auto) 0.71 L Absolute Neutrophils POC PT PT 15.5 H POC INR INR 1.2 H Chloride 110 H Carbon Dioxide 21 L Glucose Calcium 7.2 L Alkaline Phosphatase 155 H Total Protein Albumin 3.0 L Albumin/Globulin Ratio 03/31/21 03/30/21 03/30/21 05:39 16:15 13:00 WBC RBC 1.97 L Hgb 6.6 L* Hct 22.9 L MCV 116.2 H MCHC 28.8 L RDW 19.1 H MPV 12.0 H Neut % (Auto) 84.9 H Lymph % (Auto) 7.5 L Lymph # (Auto) 0.48 L Absolute Neutrophils POC PT 38.6 H PT POC INR 3.4 H INR Chloride 113 H Carbon Dioxide 19 L Glucose Calcium 6.8 L Alkaline Phosphatase Total Protein Albumin Albumin/Globulin Ratio Meds: Medications Acetaminophen (Acetaminophen 325 Mg Tablet) 650 mg PO Q6HP PRN; Protocol PRN Reason: Per Pain Protocol/Fever > 101 Last Admin: 04/02/21 00:53 Dose: 650 mg Documented by: Hydrocodone Bitart/Acetaminophen (Hydrocodone/Apap 5/325mg Tablet) 1 tab PO Q4HP PRN PRN Reason: PAIN LEVEL 3-6 Last Admin: 04/02/21 09:48 Dose: 1 tab Documented by: Albuterol/Ipratropium (Ipratropium/Albuterol 3 Ml Ampul.Neb) 3 ml NEB Q4HP PRN PRN Reason: Shortness Of Breath Atenolol (Atenolol 50 Mg Tablet) 50 mg PO DAILY [facility] Last Admin: 04/02/21 09:45 Dose: 50 mg Documented by: Calcium/Vitamin D (Calcium W/Vit D3 500 Mg Tablet) 1,000 mg PO DAILY [facility] Last Admin: 04/02/21 09:45 Dose: 1,000 mg Documented by: Cyanocobalamin (Cyanocobalamin (Vitamin B-12) 500 Mcg Tablet) 2,500 mcg PO DA ZAYNAB [facility] Last Admin: 04/02/21 09:44 Dose: 2,500 mcg Documented by: Docusate Sodium (Docusate Sodium 100 Mg Capsule) 100 mg PO BID [facility] Last Admin: 04/02/21 09:45 Dose: 100 mg Documented by: Famotidine (Famotidine/Pf 20 Mg/2 Ml Vial) 20 mg IV HS [facility] Last Admin: 04/01/21 20:47 Dose: 20 mg Documented by: Ferrous Sulfate (Ferrous Sulfate 325 Mg Tablet) 325 mg PO BIDCC [facility] Last Admin: 04/02/21 07:45 Dose: 325 mg Documented by: Gemfibrozil (Gemfibrozil 600 Mg Tablet) 600 mg PO BID [facility] Last Admin: 04/02/21 09:45 Dose: 600 mg Documented by: Hydralazine HCl (Hydralazine 20 Mg/Ml Vial) 0 mg IV Q2HP PRN PRN Reason: Hypertension Last Admin: 04/01/21 16:04 Dose: 20 mg Documented by: Hydroxyzine HCl (Hydroxyzine 25 Mg Tablet) 25 mg PO QHS [facility] Last Admin: 04/01/21 20:47 Dose: 25 mg Documented by: Potassium Chloride 40 meq/ (Dextrose) 520 mls @ 130 mls/hr IV UD PRN PRN Reason: Potassium < 3 Magnesium Sulfate (Magnesium Sulfate) 2 gm in 50 mls @ 50 mls/hr IV UD PRN PRN Reason: Magnesium </= 1.6 Last Infusion: 03/30/21 01:45 Dose: Infused Documented by: Lactated Ringer's (Lactated Ringers) 1,000 mls @ 100 mls/hr IV .Q10H [facility] Last Admin: 04/02/21 13:03 Dose: Not Given Documented by: Ketorolac Tromethamine (Ketorolac 15 Mg/Ml Vial) 15 mg IV Q6HP PRN PRN Reason: Per Pain Protocol Last Admin: 04/01/21 16:46 Dose: 15 mg Documented by: Levothyroxine Sodium (Levothyroxine 50 Mcg Tablet) 50 mcg PO QAMAC [facility] Last Admin: 04/02/21 07:45 Dose: 50 mcg Documented by: Meclizine HCl (Meclizine 25 Mg Tablet) 12.5 mg PO BIDP PRN PRN Reason: Vertigo Last Admin: 03/30/21 21:28 Dose: 12.5 mg Documented by: Melatonin (Melatonin 3 Mg Tablet) 3 mg PO HS PRN PRN Reason: Sleep Last Admin: 03/30/21 21:28 Dose: 3 mg Documented by: Morphine Sulfate (Morphine 4 Mg/Ml Vial) 0 mg IV Q3HP PRN PRN Reason: Pain Last Admin: 04/01/21 18:56 Dose: 2 mg Documented by: Ondansetron HCl (Ondansetron 4 Mg/2 Ml Vial) 4 mg IV Q4HP PRN PRN Reason: Nausea And Vomiting Polyethylene Glycol (Polyethylene Glycol 3350 17 Gm Packet) 17 gm PO DAILYP PRN PRN Reason: Constipation Potassium Chloride (Potassium Chloride 20 Meq Tablet) 40 meq PO UD PRN PRN Reason: Potssium is 3-3.5 Potassium Chloride (Potassium Chloride 20 Meq Tablet) 40 meq PO UD PRN PRN Reason: Potassium < 3 Pregabalin (Pregabalin 25 Mg Capsule) 50 mg PO QDAY [facility] Last Admin: 04/02/21 09:45 Dose: 50 mg Documented by: Promethazine HCl (Promethazine 25 Mg/Ml Vial) 12.5 mg IV Q6HP PRN PRN Reason: Nausea And Vomiting Senna (Sennosides 1 Tablet) 2 tab PO DAILYP PRN PRN Reason: Constipation Last Admin: 03/31/21 21:37 Dose: 2 tab Documented by: Sodium Chloride (0.9 % Sodium Chloride 10 Ml Syringe) 10 ml IV Q8 [facility] Last Admin: 04/02/21 05:52 Dose: 10 ml Documented by: Sodium Chloride (0.9 % Sodium Chloride 10 Ml Syringe) 10 ml IV Q12 [facility] Last Admin: 04/02/21 09:45 Dose: 10 ml Documented by: Sodium Chloride (0.9 % Sodium Chloride 10 Ml Syringe) 10 ml IV UD PRN PRN Reason: Anesthesia Sodium Chloride (0.9 % Sodium Chloride 10 Ml Syringe) 10 ml IV Q8 [facility] Last Admin: 04/02/21 05:52 Dose: Not Given Documented by: Vitamin D (Vitamin D3 400 Unit Tablet) 800 unit PO DAILY [facility] Last Admin: 04/02/21 09:45 Dose: 800 unit Documented by: A/P Assessment and plan (1) 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 plan for discharge to SNF 2. follow up with [facility] in 2 weeks for staple removal and post op check 3. Walker for ambulation 4. pillow between legs when sleeping 5. ASA 81 mg BID for 30 days for DVT prophylaxis 6. medicine per hospitalists (3) Hyperlipidemia: Status: Chronic Qualifiers: Hyperlipidemia type: unspecified Qualified Code(s): E78.5 - Hyperlipidemia, unspecified (4) GERD (gastroesophageal reflux disease): Status: Chronic Qualifiers: Esophagitis presence: with esophagitis Qualified Code(s): K21.0 - Gastro-esophageal reflux disease with esophagitis (5) Anemia, iron deficiency: Status: Chronic Qualifiers: Iron deficiency anemia type: unspecified iron deficiency Qualified Code(s): D50.9 - Iron deficiency anemia, unspecified (6) Hypokalemia: Status: Chronic (7) Hypertension: Status: Chronic Qualifiers: Hypertension type: essential hypertension Qualified Code(s): I10 - Essential (primary) hypertension (8) Hypothyroidism: Status: Chronic (9) COPD (chronic obstructive pulmonary disease): Status: Chronic Qualifiers: COPD type: chronic bronchitis Chronic bronchitis type: mucopurulent Qualified Code(s): J41.1 - Mucopurulent chronic bronchitis Narrative A/P Narrative: Assessment and plan: 1. Right proximal femur periprosthetic fracture: Inpatient [facility] Orthopedic surgeon Dr. Atkins consulted Status post ORIF and revisions of previous right hip hemiarthroplasty and placement of a long stem hemiarthroplasty by Dr. Atkins on 04/01 Physical and Occupational Therapy evaluation and treatment after the surgery Tylenol as needed mild pain Alva as needed moderate pain Morphine as needed severe pain #2 anemia: H/H stable after surgery on 04/01 Repeat CBC in the morning to trend H&H #3 history of COPD, stable: Continue bronchodilator as needed for wheezing or shortness of breath #4 history of hypothyroidism: Continue thyroid replacement therapy 5. History of essential hypertension's: Currently normotensive Continue atenolol 6. History of mixed dyslipidemia: Continue gemfibrozil 7. Hypokalemia: RESOLVED Continue potassium replacement according to protocol CMP in the morning to trend serum potassium level and repeat replacement as needed Also check serum magnesium level and will replace if needed 8. Vitamin D deficiency and hypocalcemia: Continue vitamin D calcium oral replacement Stop PPI and switch to H2 inhibitor Hold diuretics GI prophylaxis: Famotidine DVT prophylaxis: SCDs CODE STATUS: DNI DNR Prognosis: Stable Dispositions: Inpatient MedSurg Time Spent With Patient Time: Total time spent is greater than 50% in coordination of care (as documented) at patient's floor/unit and/or counseling patient: QUALITY VTE Deep Vein Thrombosis/Pulmonary Embolism Present on Admission: No
[2021-04-02] MEDS: KETOROLAC 15 MG/ML VIAL IV PRN (17:19)
[2021-04-02] MEDS: FAMOTIDINE/PF 20 MG/2 ML VIAL IV SCH (21:52)
[2021-04-02] MEDS: hydrOXYzine 25 MG TABLET PO SCH (21:52)
[2021-04-03] MEDS: hydrALAZINE 20 MG/ML VIAL IV PRN (03:28)
[2021-04-03] MEDS: MELATONIN 3 MG TABLET PO PRN ×2 (03:28→21:47)
[2021-04-03] MEDS: PREGABALIN 25 MG CAPSULE PO SCH ×3 (04:14→21:43)
[2021-04-03] MEDS: HYDROcodone/APAP 5/325MG TABLET PO PRN ×4 (05:37→23:01)
[2021-04-03] MEDS: 0.9 % SODIUM CHLORIDE 10 ML SYRINGE IV SCH ×8 (05:37→21:45)
[2021-04-03] MEDS: KETOROLAC 15 MG/ML VIAL IV PRN ×2 (06:44→19:08)
[2021-04-03 07:00] LABS: Basophils # (Auto) 0.01 K/mcL (0.00-0.30); Basophils % (Auto) 0.1 % (0.0-2.0); Eosinophils # (Auto) 0.08 K/mcL (0.00-0.70); Eosinophils % (Auto) 0.8 % (0.0-7.0); Hematocrit 28.4 % (34.1-44.9); Lymphocytes # (Auto) 0.77 K/mcL (1.50-4.80); Lymphocytes % (Auto) 7.9 % (15.5-49.0); Mean Cell Volume 101.1 fL (80.0-100.0); Mean Corpuscular HGB Conc 31.7 g/dL (31.0-36.0); Mean Platelet Volume 12.1 fL (7.4-10.4); Monocytes # (Auto) 0.34 K/mcL (0.10-0.90); Monocytes % (Auto) 3.5 % (1.0-12.0); Neutrophils % (Auto) 87.7 % (38.0-78.0); Platelet Count 198 K/mcL (140-440); RBC 2.81 M/mcL (3.59-5.38); Red Cell Distribution Width 21.1 % (11.5-14.5); WBC 9.7 K/mcL (4.5-11.0)
[2021-04-03 07:48] LABS: ALT/SGPT < 5 U/L (<40); AST/SGOT 21 U/L (<32); Albumin 2.3 gm/dL (3.2-5.2); Albumin/Globulin Ratio 0.8 (1.0-2.3); Alkaline Phosphatase 119 U/L (39-117); Bilirubin,Total 0.4 mg/dL (0.1-1.0); Blood Urea Nitrogen 20 mg/dL (8-23); Calcium 7.8 mg/dL (8.6-10.4); Carbon Dioxide 20 mmol/L (22-30); Chloride 110 mmol/L (96-108); Globulin 2.8 gm/dL (2.2-3.7); Glomerular Filtration Rate 50; Glucose 98 mg/dL (70-105)
[2021-04-03] MEDS: CALCIUM W/VIT D3 500 MG TABLET PO SCH (08:40)
[2021-04-03] MEDS: CYANOCOBALAMIN (VITAMIN B-12) 500 MCG TABLET PO SCH (08:40)
[2021-04-03] MEDS: DOCUSATE SODIUM 100 MG CAPSULE PO SCH ×2 (08:41→21:44)
[2021-04-03] MEDS: GEMFIBROZIL 600 MG TABLET PO SCH ×2 (08:42→21:44)
[2021-04-03] MEDS: VITAMIN D3 400 UNIT TABLET PO SCH (08:43)
[2021-04-03] MEDS: FERROUS SULFATE 325 MG TABLET PO SCH ×2 (08:43→16:37)
[2021-04-03] MEDS: ATENOLOL 50 MG TABLET PO SCH (08:43)
[2021-04-03] MEDS: LEVOTHYROXINE 50 MCG TABLET PO SCH (08:43)
--- NOTE | 2021-04-03 11:03 | Internal Med Progress Note ---
SUBJECTIVE Subjective Patient information: Note initiated : 04/03/21 at 11:01 am Service Date, if different from initiated Date: [] Patient: Corinne Crawford 85 y/o F admitted on 03/29/21 for right hip pain. Chief Complaint: [Right hip fracture] Interval history: HISTORY OF PRESENT ILLNESS: Pleasant 85-year-old presented to the emergency department for acute right hip pain. This patient was ambulating in the bathroom with assistance by a family member when her leg gave out and she ended up landing on her right hip, then falling backwards hitting the back of her head. There was no loss of consciousness. The patient recently had a austen-hip arthroplasty of this extremity done by Dr. Huber within in the last 6 weeks. 03/31: Hemoglobin 6.6. INR 1.2. Subjective not obtained due to clinical situations. 04/01: Hemoglobin 10.6 after 3 unit pRBC transfusion. Currently undergoing surgery by orthopedic surgeon Dr. Burden. 04/02: Status post ORIF and revisions of previous right hip hemiarthroplasty and placement of a long stem hemiarthroplasty by Dr. Atkins on 04/01. Currently denies any hip pain. Denies any fever or chills. Denies any shortness of breath. 04/03: Bower catheter removed. c/o Right hip pain. Denies any fever or chills. Denies any shortness of breath. Constitutional Vitals: Vital Signs Temp Pulse Resp BP Pulse Ox 36.1 C L 80 16 112/56 94 04/03/21 07:29 04/03/21 07:29 04/03/21 07:29 04/03/21 07:29 04/03/21 10:00 Period Temp Pulse Resp BP Sys/Mora Pulse Ox Last 24 Hr 36.1 C-36.6 C 55-80 14-18 112-156/56-68 93-99 Intake and Output 04/02/21 04/03/21 04/03/21 21:59 05:59 13:59 Intake Total 1650 847 Output Total 700 200 300 Balance 950 647 -300 Weight 80.966 kg Intake & Output: Intake & Output 04/02/21 04/03/21 04/03/21 21:59 05:59 13:59 Intake Total 1650 847 Output Total 700 200 300 Balance 950 647 -300 Weight 80.966 kg Intake: IV 1250 317 Sodium Chloride 0.9% 250 ml @ 250 20 mls/hr IV .[id number] [facility] Rx#: [id number] Lactated Ringers 1,000 ml @ 100 1000 317 mls/hr IV .Q10H [facility] Rx#: [id number] Oral 400 530 Output: Urine Catheter Amount 450 200 Void Amount 250 300 Other: Urine Appearance Clear Clear Clear Uretheral (Bower) Sediment Urine Color Bright Yellow Pale Bright Yellow Uretheral (Bower) Blood Tinged Urine Odor Strong Stool Size Moderate Stool Color Brown Stool Consistency Formed # Voids 1 # Bowel Movements 1 General appearance: cooperative and no acute distress Exam: Defer Head Head exam: Present atraumatic and normocephalic Eye Eye exam: Present EOMI and PERRL ENT ENT exam: Present mucous membranes moist, normal exam and normal external ear exam Neck Neck exam: Present normal inspection; Absent lymphadenopathy, tenderness and thyromegaly Respiratory Respiratory exam: Absent accessory muscle use, respiratory distress and wheezes Cardiovascular Cardiovascular exam: Present normal rate and rhythm; Absent JVD GI/Abdominal GI/Abdominal exam: Present normal bowel sounds and soft; Absent organomegaly and tenderness Extremities Exam Extremities exam: Present normal capillary refill and tenderness; Absent full ROM and normal inspection Additional comments: Right lateral hip covered by surgical dressing. Neurological Exam Neurological exam: Present alert, CN II-XII intact and oriented X3; Absent motor sensory deficit Psychiatric Psychiatric exam: Present normal affect and normal mood; Absent anxious and depressed Skin Skin exam: Present dry and intact OBJ DATA Labs CBC & Chem 7: 04/03/21 05:03 04/03/21 05:03 Labs: Abnormal Lab Results 04/03/21 04/03/21 04/02/21 05:03 05:03 05:35 WBC RBC 2.81 L Hgb 9.0 L Hct 28.4 L MCV 101.1 H MCHC RDW 21.1 H MPV 12.1 H Neut % (Auto) 87.7 H Lymph % (Auto) 7.9 L Lymph # (Auto) 0.77 L Absolute Neutrophils 8.50 H Chloride 110 H Carbon Dioxide 20 L Glucose 152 H Calcium 7.8 L 7.7 L Alkaline Phosphatase 119 H 130 H Total Protein 5.1 L 5.4 L Albumin 2.3 L 2.3 L Albumin/Globulin Ratio 0.8 L 0.7 L 04/02/21 04/01/21 04/01/21 05:35 05:35 05:35 WBC 15.0 H RBC 3.27 L 3.43 L Hgb 10.3 L 10.6 L Hct 33.5 L 33.9 L MCV 102.4 H MCHC 30.7 L RDW 22.5 H 23.5 H MPV 12.3 H 11.9 H Neut % (Auto) 93.0 H 86.2 H Lymph % (Auto) 3.6 L 8.2 L Lymph # (Auto) 0.54 L 0.71 L Absolute Neutrophils 13.92 H Chloride 110 H Carbon Dioxide Glucose Calcium 7.6 L Alkaline Phosphatase 139 H Total Protein 5.7 L Albumin 2.6 L Albumin/Globulin Ratio 0.8 L Meds: Medications Acetaminophen (Acetaminophen 325 Mg Tablet) 650 mg PO Q6HP PRN; Protocol PRN Reason: Per Pain Protocol/Fever > 101 Last Admin: 04/02/21 00:53 Dose: 650 mg Documented by: Hydrocodone Bitart/Acetaminophen (Hydrocodone/Apap 5/325mg Tablet) 1 tab PO Q4HP PRN PRN Reason: PAIN LEVEL 3-6 Last Admin: 04/03/21 11:00 Dose: 1 tab Documented by: Albuterol/Ipratropium (Ipratropium/Albuterol 3 Ml Ampul.Neb) 3 ml NEB Q4HP PRN PRN Reason: Shortness Of Breath Atenolol (Atenolol 50 Mg Tablet) 50 mg PO DAILY [facility] Last Admin: 04/03/21 08:43 Dose: 50 mg Documented by: Calcium/Vitamin D (Calcium W/Vit D3 500 Mg Tablet) 1,000 mg PO DAILY [facility] Last Admin: 04/03/21 08:40 Dose: 1,000 mg Documented by: Cyanocobalamin (Cyanocobalamin (Vitamin B-12) 500 Mcg Tablet) 2,500 mcg PO DAILY [facility] Last Admin: 04/03/21 08:40 Dose: 2,500 mcg Documented by: Docusate Sodium (Docusate Sodium 100 Mg Capsule) 100 mg PO BID [facility] Last Admin: 04/03/21 08:41 Dose: 100 mg Documented by: Famotidine (Famotidine/Pf 20 Mg/2 Ml Vial) 20 mg IV HS [facility] Last Admin: 04/02/21 21:52 Dose: 20 mg Documented by: Ferrous Sulfate (Ferrous Sulfate 325 Mg Tablet) 325 mg PO BIDCC [facility] Last Admin: 04/03/21 08:43 Dose: 325 mg Documented by: Gemfibrozil (Gemfibrozil 600 Mg Tablet) 600 mg PO BID [facility] Last Admin: 04/03/21 08:42 Dose: 600 mg Documented by: Hydralazine HCl (Hydralazine 20 Mg/Ml Vial) 0 mg IV Q2HP PRN PRN Reason: Hypertension Last Admin: 04/03/21 03:28 Dose: 10 mg Documented by: Hydroxyzine HCl (Hydroxyzine 25 Mg Tablet) 25 mg PO QHS [facility] Last Admin: 04/02/21 21:52 Dose: 25 mg Documented by: Potassium Chloride 40 meq/ (Dextrose) 520 mls @ 130 mls/hr IV UD PRN PRN Reason: Potassium < 3 Magnesium Sulfate (Magnesium Sulfate) 2 gm in 50 mls @ 50 mls/hr IV UD PRN PRN Reason: Magnesium </= 1.6 Last Infusion: 03/30/21 01:45 Dose: Infused Documented by: Lactated Ringer's (Lactated Ringers) 1,000 mls @ 100 mls/hr IV .Q10H [facility] Last Infusion: 04/03/21 00:40 Dose: 0 mls/hr Documented by: Ketorolac Tromethamine (Ketorolac 15 Mg/Ml Vial) 15 mg IV Q6HP PRN PRN Reason: Per Pain Protocol Last Admin: 04/03/21 06:44 Dose: 15 mg Documented by: Levothyroxine Sodium (Levothyroxine 50 Mcg Tablet) 50 mcg PO QAMAC [facility] Last Admin: 04/03/21 08:43 Dose: 50 mcg Documented by: Meclizine HCl (Meclizine 25 Mg Tablet) 12.5 mg PO BIDP PRN PRN Reason: Vertigo Last Admin: 03/30/21 21:28 Dose: 12.5 mg Documented by: Melatonin (Melatonin 3 Mg Tablet) 3 mg PO HS PRN PRN Reason: Sleep Last Admin: 04/03/21 03:28 Dose: 3 mg Documented by: Morphine Sulfate (Morphine 4 Mg/Ml Vial) 0 mg IV Q3HP PRN PRN Reason: Pain Last Admin: 04/01/21 18:56 Dose: 2 mg Documented by: Ondansetron HCl (Ondansetron 4 Mg/2 Ml Vial) 4 mg IV Q4HP PRN PRN Reason: Nausea And Vomiting Polyethylene Glycol (Polyethylene Glycol 3350 17 Gm Packet) 17 gm PO DAILYP PRN PRN Reason: Constipation Potassium Chloride (Potassium Chloride 20 Meq Tablet) 40 meq PO UD PRN PRN Reason: Potssium is 3-3.5 Potassium Chloride (Potassium Chloride 20 Meq Tablet) 40 meq PO UD PRN PRN Reason: Potassium < 3 Pregabalin (Pregabalin 25 Mg Capsule) 50 mg PO QDAY [facility] Last Admin: 04/03/21 04:14 Dose: 50 mg Documented by: Promethazine HCl (Promethazine 25 Mg/Ml Vial) 12.5 mg IV Q6HP PRN PRN Reason: Nausea And Vomiting Senna (Sennosides 1 Tablet) 2 tab PO DAILYP PRN PRN Reason: Constipation Last Admin: 03/31/21 21:37 Dose: 2 tab Documented by: Sodium Chloride (0.9 % Sodium Chloride 10 Ml Syringe) 10 ml IV Q8 [facility] Last Admin: 04/03/21 05:37 Dose: 10 ml Documented by: Sodium Chloride (0.9 % Sodium Chloride 10 Ml Syringe) 10 ml IV Q12 [facility] Last Admin: 04/03/21 08:43 Dose: 10 ml Documented by: Sodium Chloride (0.9 % Sodium Chloride 10 Ml Syringe) 10 ml IV UD PRN PRN Reason: Anesthesia Sodium Chloride (0.9 % Sodium Chloride 10 Ml Syringe) 10 ml IV Q8 [facility] Last Admin: 04/03/21 05:37 Dose: 10 ml Documented by: Vitamin D (Vitamin D3 400 Unit Tablet) 800 unit PO DAILY [facility] Last Admin: 04/03/21 08:43 Dose: 800 unit Documented by: A/P Assessment and plan (1) 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 plan for discharge to SNF 2. follow up with [facility] in 2 weeks for staple removal and post op check 3. Walker for ambulation 4. pillow between legs when sleeping 5. ASA 81 mg BID for 30 days for DVT prophylaxis 6. medicine per hospitalists (3) Hyperlipidemia: Status: Chronic Qualifiers: Hyperlipidemia type: unspecified Qualified Code(s): E78.5 - Hyperlipidemia, unspecified (4) GERD (gastroesophageal reflux disease): Status: Chronic Qualifiers: Esophagitis presence: with esophagitis Qualified Code(s): K21.0 - Gastro-esophageal reflux disease with esophagitis (5) Anemia, iron deficiency: Status: Chronic Qualifiers: Iron deficiency anemia type: unspecified iron deficiency Qualified Code(s): D50.9 - Iron deficiency anemia, unspecified (6) Hypokalemia: Status: Chronic (7) Hypertension: Status: Chronic Qualifiers: Hypertension type: essential hypertension Qualified Code(s): I10 - Essential (primary) hypertension (8) Hypothyroidism: Status: Chronic (9) COPD (chronic obstructive pulmonary disease): Status: Chronic Qualifiers: COPD type: chronic bronchitis Chronic bronchitis type: mucopurulent Qu alified Code(s): J41.1 - Mucopurulent chronic bronchitis Narrative A/P Narrative: Assessment and plan: 1. Right proximal femur periprosthetic fracture: Inpatient [facility] Orthopedic surgeon Dr. Atkins consulted Status post ORIF and revisions of previous right hip hemiarthroplasty and placement of a long stem hemiarthroplasty by Dr. Atkins on 04/01 Physical and Occupational Therapy evaluation and treatment after the surgery Tylenol as needed mild pain Saxon as needed moderate pain Morphine as needed severe pain #2 anemia: H/H stable after surgery on 04/01 Repeat CBC in the morning to trend H&H #3 history of COPD, stable: Continue bronchodilator as needed for wheezing or shortness of breath #4 history of hypothyroidism: Continue thyroid replacement therapy 5. History of essential hypertension's: Currently normotensive Continue atenolol 6. History of mixed dyslipidemia: Continue gemfibrozil 7. Hypokalemia: RESOLVED Continue potassium replacement according to protocol CMP in the morning to trend serum potassium level and repeat replacement as needed Also check serum magnesium level and will replace if needed 8. Vitamin D deficiency and hypocalcemia: Continue vitamin D calcium oral replacement Stop PPI and switch to H2 inhibitor Hold diuretics GI prophylaxis: Famotidine DVT prophylaxis: SCDs, resume Lovenox as DVT ppx CODE STATUS: DNI DNR Prognosis: Stable Dispositions: Inpatient MedSurg Time Spent With Patient Time: Total time spent is greater than 50% in coordination of care (as documented) at patient's floor/unit and/or counseling patient: QUALITY VTE Deep Vein Thrombosis/Pulmonary Embolism Present on Admission: No
[2021-04-03] MEDS: LACTATED RINGERS 1,000 ML IV SCH (11:09)
[2021-04-03] MEDS: hydrOXYzine 25 MG TABLET PO SCH (21:43)
[2021-04-03] MEDS: FAMOTIDINE/PF 20 MG/2 ML VIAL IV SCH (21:43)
[2021-04-04] MEDS ORDERED: FUROSEMIDE 40 MG/4 ML VIAL IV ONE (00:47)
[2021-04-04] MEDS: HYDROcodone/APAP 5/325MG TABLET PO PRN ×3 (04:33→17:11)
[2021-04-04] MEDS: 0.9 % SODIUM CHLORIDE 10 ML SYRINGE IV SCH ×8 (04:33→21:03)
[2021-04-04 07:50] LABS: ALT/SGPT < 5 U/L (<40); AST/SGOT 24 U/L (<32); Albumin 2.2 gm/dL (3.2-5.2); Albumin/Globulin Ratio 0.7 (1.0-2.3); Alkaline Phosphatase 109 U/L (39-117); Bilirubin,Total 0.4 mg/dL (0.1-1.0); Blood Urea Nitrogen 19 mg/dL (8-23); Calcium 7.8 mg/dL (8.6-10.4); Carbon Dioxide 20 mmol/L (22-30); Chloride 111 mmol/L (96-108); Glomerular Filtration Rate 66; Glucose 81 mg/dL (70-105)
[2021-04-04] MEDS: GEMFIBROZIL 600 MG TABLET PO SCH ×2 (08:20→21:02)
[2021-04-04] MEDS: CALCIUM W/VIT D3 500 MG TABLET PO SCH (08:20)
[2021-04-04] MEDS: ATENOLOL 50 MG TABLET PO SCH (08:21)
[2021-04-04] MEDS: VITAMIN D3 400 UNIT TABLET PO SCH (08:21)
[2021-04-04] MEDS: CYANOCOBALAMIN (VITAMIN B-12) 500 MCG TABLET PO SCH (08:21)
[2021-04-04] MEDS: LEVOTHYROXINE 50 MCG TABLET PO SCH (08:21)
[2021-04-04] MEDS: FERROUS SULFATE 325 MG TABLET PO SCH ×2 (08:21→17:11)
[2021-04-04] MEDS: ENOXAPARIN 40 MG/0.4 ML SYRINGE SQ SCH (08:21)
[2021-04-04 09:17] LABS: Basophils # (Auto) 0.02 K/mcL (0.00-0.30); Basophils % (Auto) 0.3 % (0.0-2.0); Eosinophils # (Auto) 0.05 K/mcL (0.00-0.70); Eosinophils % (Auto) 0.9 % (0.0-7.0); Hematocrit 30.3 % (34.1-44.9); Hemoglobin 9.2 g/dL (11.2-15.7); Lymphocytes # (Auto) 0.45 K/mcL (1.50-4.80); Lymphocytes % (Auto) 7.7 % (15.5-49.0); Mean Cell Volume 103.8 fL (80.0-100.0); Mean Corpuscular HGB Conc 30.4 g/dL (31.0-36.0); Mean Platelet Volume 12.6 fL (7.4-10.4); Monocytes # (Auto) 0.22 K/mcL (0.10-0.90); Monocytes % (Auto) 3.7 % (1.0-12.0); Neutrophils % (Auto) 87.4 % (38.0-78.0); Platelet Count 125 K/mcL (140-440); RBC 2.92 M/mcL (3.59-5.38); WBC 5.9 K/mcL (4.5-11.0)
[2021-04-04] MEDS: DOCUSATE SODIUM 100 MG CAPSULE PO SCH ×2 (10:01→21:02)
--- NOTE | 2021-04-04 12:14 | Internal Med Progress Note ---
SUBJECTIVE Subjective Patient information: Note initiated : 04/04/21 at 12:12 pm Service Date, if different from initiated Date: [] Patient: Corinne Crawford 85 y/o F admitted on 03/29/21 for right hip pain. Chief Complaint: [Right hip fracture] Interval history: HISTORY OF PRESENT ILLNESS: Pleasant 85-year-old presented to the emergency department for acute right hip pain. This patient was ambulating in the bathroom with assistance by a family member when her leg gave out and she ended up landing on her right hip, then falling backwards hitting the back of her head. There was no loss of consciousness. The patient recently had a austen-hip arthroplasty of this extremity done by Dr. Huber within in the last 6 weeks. 03/31: Hemoglobin 6.6. INR 1.2. Subjective not obtained due to clinical situations. 04/01: Hemoglobin 10.6 after 3 unit pRBC transfusion. Currently undergoing surgery by orthopedic surgeon Dr. Burden. 04/02: Status post ORIF and revisions of previous right hip hemiarthroplasty and placement of a long stem hemiarthroplasty by Dr. Atkins on 04/01. Currently denies any hip pain. Denies any fever or chills. Denies any shortness of breath. 04/03: Bower catheter removed. c/o Right hip pain. Denies any fever or chills. Denies any shortness of breath. 04/04: c/o cough. Denies chest pain. c/o general body weakness. Denies any right hip pain. Denies fever or chills or sweating. Constitutional Vitals: Vital Signs Temp Pulse Resp BP Pulse Ox 36.2 C 73 20 170/72 91 04/04/21 08:00 04/04/21 08:00 04/04/21 08:00 04/04/21 08:00 04/04/21 10:00 Period Temp Pulse Resp BP Sys/Mora Pulse Ox Last 24 Hr 36.1 C-37.0 C 68-77 16-22 132-174/62-72 91-98 Intake and Output 04/03/21 04/04/21 04/04/21 21:59 05:59 13:59 Intake Total 120 Output Total 1300 051 597 Balance -1300 -256 -239 Weight 76.204 kg Intake & Output: Intake & Output 04/03/21 04/04/21 04/04/21 21:59 05:59 13:59 Intake Total 120 Output Total 1300 996 625 Balance -1300 -156 -625 Weight 76.204 kg Intake: Oral 120 Output: Void Amount 1300 275 625 # of times incontinent of urine 1 Other: Urine Appearance Clear Clear Clear Urine Color Straw Bright Yellow Straw Urine Odor Normal Normal Stool Size Small Small Stool Color Brown Bull Colored Stool Consistency Soft Loose # Voids 5 # Bowel Movements 1 1 General appearance: cooperative and no acute distress Exam: Defer Head Head exam: Present atraumatic and normocephalic Eye Eye exam: Present EOMI and PERRL ENT ENT exam: Present mucous membranes moist, normal exam and normal external ear exam Neck Neck exam: Present normal inspection; Absent lymphadenopathy, tenderness and thyromegaly Respiratory Respiratory exam: Absent accessory muscle use, respiratory distress and wheezes Cardiovascular Cardiovascular exam: Present normal rate and rhythm; Absent JVD GI/Abdominal GI/Abdominal exam: Present normal bowel sounds and soft; Absent organomegaly and tenderness Extremities Exam Extremities exam: Present normal capillary refill and tenderness; Absent full ROM and normal inspection Additional comments: Right lateral hip covered by surgical dressing Neurological Exam Neurological exam: Present alert, CN II-XII intact and oriented X3; Absent motor sensory deficit Psychiatric Psychiatric exam: Present normal affect and normal mood; Absent anxious and depressed Skin Skin exam: Present dry and intact OBJ DATA Labs CBC & Chem 7: 04/04/21 05:23 04/04/21 05:22 Labs: Abnormal Lab Results 04/04/21 04/04/21 04/03/21 05:23 05:22 05:03 WBC RBC 2.92 L Hgb 9.2 L Hct 30.3 L MCV 103.8 H MCHC 30.4 L RDW 21.0 H Plt Count 125 L MPV 12.6 H Neut % (Auto) 87.4 H Lymph % (Auto) 7.7 L Lymph # (Auto) 0.45 L Absolute Neutrophils Chloride 111 H 110 H Carbon Dioxide 20 L 20 L Glucose Calcium 7.8 L 7.8 L Alkaline Phosphatase 119 H Total Protein 5.2 L 5.1 L Albumin 2.2 L 2.3 L Albumin/Globulin Ratio 0.7 L 0.8 L 04/03/21 04/02/21 04/02/21 05:03 05:35 05:35 WBC 15.0 H RBC 2.81 L 3.27 L Hgb 9.0 L 10.3 L Hct 28.4 L 33.5 L MCV 101.1 H 102.4 H MCHC 30.7 L RDW 21.1 H 22.5 H Plt Count MPV 12.1 H 12.3 H Neut % (Auto) 87.7 H 93.0 H Lymph % (Auto) 7.9 L 3.6 L Lymph # (Auto) 0.77 L 0.54 L Absolute Neutrophils 8.50 H 13.92 H Chloride Carbon Dioxide Glucose 152 H Calcium 7.7 L Alkaline Phosphatase 130 H Total Protein 5.4 L Albumin 2.3 L Albumin/Globulin Ratio 0.7 L Meds: Medications Acetaminophen (Acetaminophen 325 Mg Tablet) 650 mg PO Q6HP PRN; Protocol PRN Reason: Per Pain Protocol/Fever > 101 Last Admin: 04/02/21 00:53 Dose: 650 mg Documented by: Hydrocodone Bitart/Acetaminophen (Hydrocodone/Apap 5/325mg Tablet) 1 tab PO Q4HP PRN PRN Reason: PAIN LEVEL 3-6 Last Admin: 04/04/21 10:14 Dose: 1 tab Documented by: Albuterol/Ipratropium (Ipratropium/Albuterol 3 Ml Ampul.Neb) 3 ml NEB Q4HP PRN PRN Reason: Shortness Of Breath Atenolol (Atenolol 50 Mg Tablet) 50 mg PO DAILY [facility] Last Admin: 04/04/21 08:21 Dose: 50 mg Documented by: Calcium/Vitamin D (Calcium W/Vit D3 500 Mg Tablet) 1,000 mg PO DAILY [facility] Last Admin: 04/04/21 08:20 Dose: 1,000 mg Documented by: Cyanocobalamin (Cyanocobalamin (Vitamin B-12) 500 Mcg Tablet) 2,500 mcg PO DAILY [facility] Last Admin: 04/04/21 08:21 Dose: 2,500 mcg Documented by: Docusate Sodium (Docusate Sodium 100 Mg Capsule) 100 mg PO BID [facility] Last Admin: 04/04/21 10:01 Dose: Not Given Documented by: Enoxaparin Sodium (Enoxaparin 40 Mg/0.4 Ml Syringe) 40 mg SQ DAILY [facility] Last Admin: 04/04/21 08:21 Dose: 40 mg Documented by: Famotidine (Famotidine/Pf 20 Mg/2 Ml Vial) 20 mg IV HS [facility] Last Admin: 04/03/21 21:43 Dose: 20 mg Documented by: Ferrous Sulfate (Ferrous Sulfate 325 Mg Tablet) 325 mg PO BIDCC [facility] Last Admin: 04/04/21 08:21 Dose: 325 mg Documented by: Gemfibrozil (Gemfibrozil 600 Mg Tablet) 600 mg PO BID [facility] Last Admin: 04/04/21 08:20 Dose: 600 mg Documented by: Guaifenesin (Guaifenesin/Dextromethorphan Oral Mulu) 10 ml PO Q4HP PRN PRN Reason: Cough Hydralazine HCl (Hydralazine 20 Mg/Ml Vial) 0 mg IV Q2HP PRN PRN Reason: Hypertension Last Admin: 04/03/21 03:28 Dose: 10 mg Documented by: Hydroxyzine HCl (Hydroxyzine 25 Mg Tablet) 25 mg PO QHS [facility] Last Admin: 04/03/21 21:43 Dose: 25 mg Documented by: Potassium Chloride 40 meq/ (Dextrose) 520 mls @ 130 mls/hr IV UD PRN PRN Reason: Potassium < 3 Magnesium Sulfate (Magnesium Sulfate) 2 gm in 50 mls @ 50 mls/hr IV UD PRN PRN Reason: Magnesium </= 1.6 Last Infusion: 03/30/21 01:45 Dose: Infused Documented by: Ketorolac Tromethamine (Ketorolac 15 Mg/Ml Vial) 15 mg IV Q6HP PRN PRN Reason: Per Pain Protocol Last Admin: 04/03/21 19:08 Dose: 15 mg Documented by: Levothyroxine Sodium (Levothyroxine 50 Mcg Tablet) 50 mcg PO QAMAC [facility] Last Admin: 04/04/21 08:21 Dose: 50 mcg Documented by: Meclizine HCl (Meclizine 25 Mg Tablet) 12.5 mg PO BIDP PRN PRN Reason: Vertigo Last Admin: 03/30/21 21:28 Dose: 12.5 mg Documented by: Melatonin (Melatonin 3 Mg Tablet) 3 mg PO HS PRN PRN Reason: Sleep Last Admin: 04/03/21 21:47 Dose: 3 mg Documented by: Morphine Sulfate (Morphine 4 Mg/Ml Vial) 0 mg IV Q3HP PRN PRN Reason: Pain Last Admin: 04/01/21 18:56 Dose: 2 mg Documented by: Ondansetron HCl (Ondansetron 4 Mg/2 Ml Vial) 4 mg IV Q4HP PRN PRN Reason: Nausea And Vomiting Polyethylene Glycol (Polyethylene Glycol 3350 17 Gm Packet) 17 gm PO DAILYP PRN PRN Reason: Constipation Potassium Chloride (Potassium Chloride 20 Meq Tablet) 40 meq PO UD PRN PRN Reason: Potssium is 3-3.5 Potassium Chloride (Potassium Chloride 20 Meq Tablet) 40 meq PO UD PRN PRN Reason: Potassium < 3 Pregabalin (Pregabalin 25 Mg Capsule) 50 mg PO HS [facility] Last Admin: 04/03/21 21:43 Dose: 50 mg Documented by: Promethazine HCl (Promethazine 25 Mg/Ml Vial) 12.5 mg IV Q6HP PRN PRN Reason: Nausea And Vomiting Senna (Sennosides 1 Tablet) 2 tab PO DAILYP PRN PRN Reason: Constipation Last Admin: 03/31/21 21:37 Dose: 2 tab Documented by: Sodium Chloride (0.9 % Sodium Chloride 10 Ml Syringe) 10 ml IV Q8 [facility] Last Admin: 04/04/21 04:33 Dose: 10 ml Documented by: Sodium Chloride (0.9 % Sodium Chloride 10 Ml Syringe) 10 ml IV Q12 [facility] Last Admin: 04/04/21 08:21 Dose: 10 ml Documented by: Sodium Chloride (0.9 % Sodium Chloride 10 Ml Syringe) 10 ml IV UD PRN PRN Reason: Anesthesia Sodium Chloride (0.9 % Sodium Chloride 10 Ml Syringe) 10 ml IV Q8 [facility] Last Admin: 04/04/21 04:33 Dose: 10 ml Documented by: Vitamin D (Vitamin D3 400 Unit Tablet) 800 unit PO DAILY [facility] Last Admin: 04/04/21 08:21 Dose: 800 unit Documented by: A/P Assessment and plan (1) 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 plan for discharge to SNF 2. follow up with [facility] in 2 weeks for staple removal and post op check 3. Walker for ambulation 4. pillow between legs when sleeping 5. ASA 81 mg BID for 30 days for DVT prophylaxis 6. medicine per hospitalists (3) Hyperlipidemia: Status: Chronic Qualifiers: Hyperlipidemia type: unspecified Qualified Code(s): E78.5 - Hyperlipidemia, unspecified (4) GERD (gastroesophageal reflux disease): Status: Chronic Qualifiers: Esophagitis presence: with esophagitis Qualified Code(s): K21.0 - Gastro-esophageal reflux disease with esophagitis (5) Anemia, iron deficiency: Status: Chronic Qualifiers: Iron deficiency anemia type: unspecified iron deficiency Qualified Code(s): D50.9 - Iron deficiency anemia, unspecified (6) Hypokalemia: Status: Chronic (7) Hypertension: Status: Chronic Qualifiers: Hypertension type: essential hypertension Qualified Code(s): I10 - Essential (primary) hypertension (8) Hypothyroidism: Status: Chronic (9) COPD (chronic obstructive pulmonary disease): Status: Chronic Qualifiers: COPD type: chronic bronchitis Chronic bronchitis type: mucopurulent Qualified Code(s): J41.1 - Mucopurulent chronic bronchitis Narrative A/P Narrative: Assessment and plan: 1. Right proximal femur periprosthetic fracture: Inpatient [facility] Orthopedic surgeon Dr. Atkins consulted Status post ORIF and revisions of previous right hip hemiarthroplasty and placement of a long stem hemiarthroplasty by Dr. Atkins on 04/01 Physical and Occupational Therapy evaluation and treatment after the surgery Tylenol as needed mild pain [place] as needed moderate pain Morphine as needed severe pain #2 anemia: H/H stable after surgery on 04/01 Repeat CBC in the morning to trend H&H #3 history of COPD, stable: Continue bronchodilator as needed for wheezing or shortness of breath #4 history of hypothyroidism: Continue thyroid replacement therapy 5. History of essential hypertension's: Currently normotensive Continue atenolol 6. History of mixed dyslipidemia: Continue gemfibrozil 7. Hypokalemia: RESOLVED Continue potassium replacement according to protocol CMP in the morning to trend serum potassium level and repeat replacement as needed Also check serum magnesium level and will replace if needed 8. Vitamin D deficiency and hypocalcemia: Continue vitamin D calcium oral replacement Stop PPI and switch to H2 inhibitor Hold diuretics GI prophylaxis: Famotidine DVT prophylaxis: SCDs, resume Lovenox as DVT ppx CODE STATUS: DNI DNR Prognosis: Stable Dispositions: Inpatient MedSurg Time Spent With Patient Time: Total time spent is greater than 50% in coordination of care (as documented) at patient's floor/unit and/or counseling patient: QUALITY VTE Deep Vein Thrombosis/Pulmonary Embolism Present on Admission: No
[2021-04-04 13:25] LABS: Vit D 1,25 Dihydroxy 16 pg/mL (18-72)
[2021-04-04] MEDS: hydrALAZINE 20 MG/ML VIAL IV PRN (17:22)
[2021-04-04] MEDS: FAMOTIDINE/PF 20 MG/2 ML VIAL IV SCH (20:57)
[2021-04-04] MEDS: MELATONIN 3 MG TABLET PO PRN (21:01)
[2021-04-04] MEDS: PREGABALIN 25 MG CAPSULE PO SCH (21:01)
[2021-04-04] MEDS: hydrOXYzine 25 MG TABLET PO SCH (21:02)
[2021-04-05] MEDS: guaiFENesin/DEXTROMETHORPHAN ORAL SOL PO PRN ×2 (00:37→21:50)
[2021-04-05] MEDS: hydrALAZINE 20 MG/ML VIAL IV PRN (04:18)
[2021-04-05] MEDS: 0.9 % SODIUM CHLORIDE 10 ML SYRINGE IV SCH ×8 (05:46→20:54)
[2021-04-05] MEDS: HYDROcodone/APAP 5/325MG TABLET PO PRN ×3 (07:30→21:11)
[2021-04-05] MEDS: FERROUS SULFATE 325 MG TABLET PO SCH ×2 (07:30→17:19)
[2021-04-05] MEDS: LEVOTHYROXINE 50 MCG TABLET PO SCH (07:30)
[2021-04-05 08:24] LABS: ALT/SGPT < 5 U/L (<40); AST/SGOT 21 U/L (<32); Albumin 2.6 gm/dL (3.2-5.2); Albumin/Globulin Ratio 0.9 (1.0-2.3); Alkaline Phosphatase 117 U/L (39-117); Bilirubin,Total 0.5 mg/dL (0.1-1.0); Blood Urea Nitrogen 16 mg/dL (8-23); Calcium 8.3 mg/dL (8.6-10.4); Carbon Dioxide 23 mmol/L (22-30); Chloride 109 mmol/L (96-108); Globulin 2.9 gm/dL (2.2-3.7); Glomerular Filtration Rate 66; Glucose 85 mg/dL (70-105)
[2021-04-05 08:25] LABS: Basophils # (Auto) 0.01 K/mcL (0.00-0.30); Basophils % (Auto) 0.1 % (0.0-2.0); Eosinophils # (Auto) 0.03 K/mcL (0.00-0.70); Eosinophils % (Auto) 0.4 % (0.0-7.0); Hematocrit 30.3 % (34.1-44.9); Hemoglobin 9.1 g/dL (11.2-15.7); Lymphocytes # (Auto) 0.49 K/mcL (1.50-4.80); Lymphocytes % (Auto) 6.3 % (15.5-49.0); Mean Cell Volume 105.2 fL (80.0-100.0); Mean Platelet Volume 12.9 fL (7.4-10.4); Monocytes # (Auto) 0.33 K/mcL (0.10-0.90); Monocytes % (Auto) 4.2 % (1.0-12.0); Platelet Count 130 K/mcL (140-440); RBC 2.88 M/mcL (3.59-5.38); Red Cell Distribution Width 19.8 % (11.5-14.5); WBC 7.8 K/mcL (4.5-11.0)
[2021-04-05] MEDS: CYANOCOBALAMIN (VITAMIN B-12) 500 MCG TABLET PO SCH (10:00)
[2021-04-05] MEDS: CALCIUM W/VIT D3 500 MG TABLET PO SCH (10:00)
[2021-04-05] MEDS: GEMFIBROZIL 600 MG TABLET PO SCH ×2 (10:01→21:10)
[2021-04-05] MEDS: ATENOLOL 50 MG TABLET PO SCH (10:01)
[2021-04-05] MEDS: VITAMIN D3 400 UNIT TABLET PO SCH (10:01)
[2021-04-05] MEDS: DOCUSATE SODIUM 100 MG CAPSULE PO SCH ×2 (10:02→21:13)
[2021-04-05] MEDS: ENOXAPARIN 40 MG/0.4 ML SYRINGE SQ SCH (10:04)
--- NOTE | 2021-04-05 11:31 | Discharge Summary ---
Discharge Provider Provider Patient information: Note initiated : 04/05/21 at 11:31 am Service Date, if different from initiated Date: [] Patient: Corinne Crawford 85 y/o F admitted on 03/29/21 for right hip pain. Chief Complaint: [Right hip fracture ] History of present illness: Ms. Crawford is a 85 year old F Presents to the ED with right hip pain. He was getting up on going to the bathroom with the help of a niece when she fell landing on her right hip. Imaging and ER showed a right periprosthetic spiral fracture proximal femur. Had previously received a right hemihip arthroplasty after a fall about a month prior. Patient denies any chest pain shortness of breath or recent illnesses. Dr. Atkins was contacted for Ortho. Date of admission: 03/29/21 21:17 Discharge date: 04/05/21 Primary care physician: WENDI Steen Consults: 03/29/21 Consult to Physician [CONS] Stat Comment: Consulting Provider: Christian Burden Reason For Exam: Physician to Consult Consult to Physician [CONS] Stat Comment: Consulting Provider: Miki Lee Reason For Exam: Physician to Consult Discharge Meds Discharge Medications Home Medications ergocalciferol (vitamin D2) 400 unit PO DAILY 10/07/15 [History Confirmed 03/29/21 Last Taken 03/29/21 12:00] omega-3 fatty acids-fish oil 1,000 mg PO DAILY 10/07/15 [History Confirmed 03/29/21 Last Taken 03/29/21 09:00] omeprazole 20 mg PO BIDAC 10/07/15 [History Confirmed 03/29/21 Last Taken 03/29/21 09:00] cyanocobalamin (vitamin B-12) 2,500 mg PO QDAY 11/12/18 [History Confirmed 03/29/21 Last Taken 03/29/21 12:00] melatonin 3 mg tablet 3 mg PO HS PRN 11/12/18 [History Confirmed 03/29/21 Last Taken 03/28/21 21:00] albuterol sulfate 90 mcg/actuation aerosol inhaler 2 puff INHALATION Q6H PRN #18 g 09/12/19 [Rx Confirmed 03/29/21 Last Taken Unknown] atenolol 50 mg tablet 50 mg PO DAILY #90 tab 08/17/20 [Rx Confirmed 03/29/21 Last Taken 03/29/21 09:00] fexofenadine 180 mg tablet 180 mg PO Q24H #30 tab 09/14/20 [Rx Confirmed 03/29/21 Last Taken 03/29/21 09:00] pregabalin 50 mg capsule 50 mg PO QDAY #30 cap 10/27/20 [Rx Confirmed 03/29/21 Last Taken 03/28/21 21:00] furosemide 40 mg tablet 20 mg PO QAM tab 11/05/20 [History Confirmed 03/29/21 Last Taken 03/29/21 09:00] gemfibrozil 600 mg tablet 600 mg PO BID #180 tab 11/08/20 [Rx Confirmed 03/29/21 Last Taken 03/29/21 09:00] levothyroxine 50 mcg tablet 50 mcg PO QDAY #90 tab 11/08/20 [Rx Confirmed 03/29/21 Last Taken 03/29/21 09:00] meclizine 12.5 mg tablet 12.5 mg PO BID #60 tab 11/30/20 [Rx Confirmed 03/29/21 Last Taken 03/29/21 09:00] meloxicam 7.5 mg tablet 7.5 mg PO QDAY #180 tab 12/07/20 [Rx Confirmed 03/29/21 Last Taken 03/29/21 09:00] clopidogrel 75 mg tablet 75 mg PO DAILY #30 tab 02/01/21 [Rx Confirmed 03/29/21 Last Taken 03/29/21 09:00] magnesium sulfate 100 mg capsule 100 mg PO QDAY 02/01/21 [History Confirmed 03/29/21 Last Taken 03/29/21 09:00] hydroxyzine HCl 25 mg tablet 25 mg PO QHS #30 tab 02/18/21 [Rx Confirmed 03/29/21 Last Taken 03/28/21 21:00] ferrous sulfate 325 mg (65 mg iron) tablet 325 mg PO BID #60 tab 02/23/21 [Rx Confirmed 03/29/21 Last Taken 03/29/21 09:00] potassium chloride 20 mEq tablet,extended release 20 meq PO QDAY #90 tab 02/23/21 [Rx Confirmed 03/29/21 Last Taken 03/29/21 09:00] HYDROcodone/APAP 5/325MG [Finley 5/325Mg] 1 tab PO Q4HP #75 tab MDD 10 04/01/21 [Rx Last Taken Unknown] aspirin [Ecotrin Low Strength] 81 mg PO BID #60 tab 04/01/21 [Rx Last Taken Unknown] docusate sodium 100 mg PO BID #60 cap 04/01/21 [Rx Last Taken Unknown] hydrocodone-acetaminophen 1 tab PO Q6H PRN #20 tab 04/05/21 [Rx Last Taken Unknown] sulfamethoxazole-trimethoprim [Bactrim DS] 1 tab PO BID #6 tab 04/05/21 [Rx Last Taken Unknown] tramadol 50 mg PO BID #20 tab 04/05/21 [Rx Last Taken Unknown] COURSE Hospital Course Hospital course: 03/31: Hemoglobin 6.6. INR 1.2. Subjective not obtained due to clinical situations. 04/01: Hemoglobin 10.6 after 3 unit pRBC transfusion. Currently undergoing surgery by orthopedic surgeon Dr. Burden. 04/02: Status post ORIF and revisions of previous right hip hemiarthroplasty and placement of a long stem hemiarthroplasty by Dr. Atkins on 04/01. Currently denies any hip pain. Denies any fever or chills. Denies any shortness of breath. 04/03: Bower catheter removed. c/o Right hip pain. Denies any fever or chills. Denies any shortness of breath. 04/04: c/o cough. Denies chest pain. c/o general body weakness. Denies any right hip pain. Denies fever or chills or sweating. 04/05: Reached clinical stability. To be discharged to SNF. Discharge diagnosis: right hip fracture Time Spent with Patient Time attestation: Total time spent providing and/or coordinating discharge services: 03/31: Hemoglobin 6.6. INR 1.2. Subjective not obtained due to clinical situations. 04/01: Hemoglobin 10.6 after 3 unit pRBC transfusion. Currently undergoing surgery by orthopedic surgeon Dr. Burden. 04/02: Status post ORIF and revisions of previous right hip hemiarthroplasty and placement of a long stem hemiarthroplasty by Dr. Atkins on 04/01. Currently denies any hip pain. Denies any fever or chills. Denies any shortness of breath. 04/03: Bower catheter removed. c/o Right hip pain. Denies any fever or chills. Denies any shortness of breath. 04/04: c/o cough. Denies chest pain. c/o general body weakness. Denies any right hip pain. Denies fever or chills or sweating. 04/05: Reached clinical stability. To be discharged to SNF. EXAM Constitutional Vitals: Temp Pulse Resp BP Pulse Ox 36.8 C 78 16 139/61 95 04/05/21 07:33 04/05/21 07:33 04/05/21 07:33 04/05/21 07:33 04/05/21 10:20 General appearance: cooperative and no acute distress Head Head exam: Present atraumatic and normocephalic Eye Eye exam: Present EOMI and PERRL ENT ENT exam: Present mucous membranes moist, normal exam and normal external ear exam Neck Neck exam: Present normal inspection; Absent lymphadenopathy, tenderness and thyromegaly Respiratory Respiratory exam: Absent accessory muscle use, respiratory distress and wheezes Cardiovascular Cardiovascular exam: Present normal rate and rhythm; Absent JVD GI/Abdominal GI/Abdominal exam: Present normal bowel sounds and soft; Absent organomegaly and tenderness Extremities Exam Extremities exam: Present normal capillary refill and tenderness; Absent full ROM and normal inspection Additional comments: Right lateral hip covered by surgical dressing Neurological Exam Neurological exam: Present alert, CN II-XII intact and oriented X3; Absent motor sensory deficit Psychiatric Psychiatric exam: Present normal affect and normal mood; Absent anxious and depressed Skin Skin exam: Present dry and intact Discharge Data Data Completed and Pending Labs on day of discharge: Labs from last 24 hours 04/05/21 04/05/21 03/29/21 05:07 05:07 19:21 WBC 7.8 RBC 2.88 L Hgb 9.1 L Hct 30.3 L MCV 105.2 H MCH 31.6 MCHC 30.0 L RDW 19.8 H Plt Count 130 L MPV 12.9 H Neut % (Auto) 89.0 H Lymph % (Auto) 6.3 L [place] % (Auto) 4.2 Eos % (Auto) 0.4 Baso % (Auto) 0.1 Lymph # (Auto) 0.49 L [place] # (Auto) 0.33 Eos # (Auto) 0.03 Baso # (Auto) 0.01 Absolute Neutrophils 6.92 Sodium 144 Potassium 4.4 Chloride 109 H Carbon Dioxide 23 Anion Gap 12.0 BUN 16 Creatinine 0.8 GFR Calculation 66 Glucose 85 Calcium 8.3 L Magnesium 1.8 Total Bilirubin 0.5 AST 21 ALT < 5 Alkaline Phosphatase 117 Total Protein 5.5 L Albumin 2.6 L Globulin 2.9 Albumin/Globulin Ratio 0.9 L Vit D 1,25-Dihydroxy 16 L 1,25 Dihydroxy Vit D2 <8 1,25 Dihydroxy Vit D3 16 Discharge Plan Patient/Caregiver Discharge Instructions Activity: ambulate only with your walker and as per physical therapy Diet: Regular Diet Prescriptions: New docusate sodium 100 mg Capsule 100 mg PO BID Qty: 60 RF: 0 Hydrocodone/Apap 5/325mg [[place] 5/325mg] 1 tab PO Q4HP MDD 10 Qty: 75 RF: 0 aspirin [Ecotrin Low Strength] 81 mg tablet,delayed release (DR/EC) 81 mg PO BID Qty: 60 RF: 0 sulfamethoxazole-trimethoprim [Bactrim DS] 800-160 mg tablet 1 tab PO BID Qty: 6 RF: 0 Continued albuterol sulfate [ProAir HFA] 90 mcg/actuation HFA aerosol inhaler 2 puff INHALATION Q6H PRN (Reason: Dyspnea) Qty: 18 RF: 0 atenolol 50 mg tablet 50 mg PO DAILY Qty: 90 RF: 2 pregabalin 50 mg capsule 50 mg PO QDAY Qty: 30 RF: 2 furosemide [Lasix] 40 mg tablet 20 mg PO QAM RF: 0 gemfibrozil 600 mg tablet 600 mg PO BID Qty: 180 RF: 1 levothyroxine 50 mcg tablet 50 mcg PO QDAY Qty: 90 RF: 1 meloxicam 7.5 mg tablet 7.5 mg PO QDAY Qty: 180 RF: 2 clopidogrel 75 mg tablet 75 mg PO DAILY Qty: 30 RF: 2 hydroxyzine HCl 25 mg tablet 25 mg PO QHS Qty: 30 RF: 1 ferrous sulfate 325 mg (65 mg iron) tablet 325 mg PO BID Qty: 60 RF: 3 potassium chloride 20 mEq tablet extended release 20 meq PO QDAY Qty: 90 RF: 2 cyanocobalamin (vitamin B-12) 2,500 mg PO QDAY RF: 0 magnesium sulfate 100 mg capsule 100 mg PO QDAY RF: 0 melatonin 3 mg tablet 3 mg PO HS PRN (Reason: Sleep) RF: 0 fexofenadine [Chitra Allergy] 180 mg tablet 180 mg PO Q24H Qty: 30 RF: 4 meclizine 12.5 mg tablet 12.5 mg PO BID Qty: 60 RF: 1 ergocalciferol (vitamin D2) 400 UNIT tablet 400 unit PO DAILY RF: 0 omeprazole 20 MG capsule 20 mg PO BIDAC RF: 0 omega-3 fatty acids-fish oil 1 EACH capsule 1,000 mg PO DAILY RF: 0 tramadol 50 mg tablet 50 mg PO BID Qty: 20 RF: 0 hydrocodone-acetaminophen 7.5-325 mg tablet 1 tab PO Q6H PRN (Reason: pain) Qty: 20 RF: 0 Discontinued aspirin 81 mg capsule 81 mg PO BID Qty: 60 RF: 0 Other Ambulatory Orders: Physical Therapy DC - GREGORIO (Routine) Location: None Selected Ordered By: Gio Zamora Toilet Riser Discharge Order (ONCE) Location: None Selected Ordered By: Gio Zamora Walker (ONCE) Location: None Selected Ordered By: Gio Zamora Follow Up Plan Follow up with: Winsome Cordova ARNP [Primary Care Provider] - Gio Zamora PA-C [Physician Ware Server] - Patient Disposition: Xfer SNF Prognosis: Fair Rehab Potential: Fair I certify that the patient requires SNF services: Yes Overall status at discharge: patient is not back to baseline Discharge Orders: Discharge Order (Routine); Ordered 04/01/21 Ordered By: Gio Zamora Discharge Comment: Pt cleared by Ortho when clear by Hospitalist QUALITY VTE Deep Vein Thrombosis/Pulmonary Embolism Present on Admission: No
[2021-04-05 12:32] LABS: Appearance,Urine TURBID (Clear); Bacteria,Urine FEW /hpf (0); Bilirubin,Urine Negative (Negative); Color,Urine YELLOW; Culture Indicated,Urine yes; Glucose,Urine (UA) Negative (Negative); Ketones,Urine Negative (Negative); Leukocyte Esterase,Urine 500 /uL (Negative); Nitrate,Urine POS (Negative); Protein,Urine 30 mg/dL (Negative); Specific Gravity,Urine 1.009 (1.000-1.035); Urine RBC 127 /hpf (0-3); Urine Squamous Epithelial Cell 0 /hpf (0-4); Urine WBC > 182 /hpf (0-4); Urobilinogen,Urine Negative
--- NOTE | 2021-04-05 14:34 | Internal Med Progress Note ---
SUBJECTIVE Subjective Patient information: Note initiated : 04/05/21 at 2:31 pm Service Date, if different from initiated Date: [] Patient: Corinne Crawford 85 y/o F admitted on 03/29/21 for right hip pain. Chief Complaint: [right hip fracture] Interval history: HISTORY OF PRESENT ILLNESS: Pleasant 85-year-old presented to the emergency department for acute right hip pain. This patient was ambulating in the bathroom with assistance by a family member when her leg gave out and she ended up landing on her right hip, then falling backwards hitting the back of her head. There was no loss of consciousness. The patient recently had a austen-hip arthroplasty of this extremity done by Dr. Huber within in the last 6 weeks. 03/31: Hemoglobin 6.6. INR 1.2. Subjective not obtained due to clinical situations. 04/01: Hemoglobin 10.6 after 3 unit pRBC transfusion. Currently undergoing surgery by orthopedic surgeon Dr. Burden. 04/02: Status post ORIF and revisions of previous right hip hemiarthroplasty and placement of a long stem hemiarthroplasty by Dr. Atkins on 04/01. Currently denies any hip pain. Denies any fever or chills. Denies any shortness of breath. 04/03: Bower catheter removed. c/o Right hip pain. Denies any fever or chills. Denies any shortness of breath. 04/04: c/o cough. Denies chest pain. c/o general body weakness. Denies any right hip pain. Denies fever or chills or sweating. 04/05: UA suggestive of UTI. Mabel positive. No other complaints. Constitutional Vitals: Vital Signs Temp Pulse Resp BP Pulse Ox 36.5 C 75 18 152/75 95 04/05/21 12:00 04/05/21 12:00 04/05/21 12:00 04/05/21 12:00 04/05/21 12:00 Period Temp Pulse Resp BP Sys/Mora Pulse Ox Last 24 Hr 36.3 C-36.9 C 62-86 16-20 136-189/59-82 92-97 Intake and Output 04/05/21 04/05/21 04/05/21 05:59 13:59 21:59 Intake Total 120 120 Output Total 7 5 Balance 113 115 Intake & Output: Intake & Output 10/12/21 10/12/21 10/12/21 05:59 13:59 21:59 Intake Total 120 120 Output Total 7 5 Balance 113 115 Intake: Oral 120 120 Output: # of times incontinent of urine 7 5 Other: Meal Lunch Percent of Meal Consumed 75% Feeding Ability Independent Urine Appearance Clear Urine Color Bright Yellow Urine Odor Normal Stool Size Copious Stool Color Brown Bull Colored Stool Consistency Janet Loose # Voids 4 1 # Bowel Movements 1 General appearance: cooperative and no acute distress Exam: Defer Head Head exam: Present atraumatic and normocephalic Eye Eye exam: Present EOMI and PERRL ENT ENT exam: Present mucous membranes moist, normal exam and normal external ear exam Neck Neck exam: Present normal inspection; Absent lymphadenopathy, tenderness and thyromegaly Respiratory Respiratory exam: Absent accessory muscle use, respiratory distress and wheezes Cardiovascular Cardiovascular exam: Present normal rate and rhythm; Absent JVD GI/Abdominal GI/Abdominal exam: Present normal bowel sounds and soft; Absent organomegaly and tenderness Extremities Exam Extremities exam: Present normal capillary refill and tenderness; Absent full ROM and normal inspection Additional comments: Right lateral hip covered by surgical dressing Neurological Exam Neurological exam: Present alert, CN II-XII intact and oriented X3; Absent motor sensory deficit Psychiatric Psychiatric exam: Present normal affect and normal mood; Absent anxious and depressed Skin Skin exam: Present dry and intact OBJ DATA Labs CBC & Chem 7: 04/05/21 05:07 04/05/21 05:07 Labs: Abnormal Lab Results 04/05/21 04/05/21 04/05/21 11:31 05:07 05:07 RBC 2.88 L Hgb 9.1 L Hct 30.3 L MCV 105.2 H MCHC 30.0 L RDW 19.8 H Plt Count 130 L MPV 12.9 H Neut % (Auto) 89.0 H Lymph % (Auto) 6.3 L Lymph # (Auto) 0.49 L Absolute Neutrophils Chloride 109 H Carbon Dioxide Calcium 8.3 L Alkaline Phosphatase Total Protein 5.5 L Albumin 2.6 L Albumin/Globulin Ratio 0.9 L Vit D 1,25-Dihydroxy Urine Appearance Turbid A Urine Protein 30 A Urine Nitrate Pos A Ur Leukocyte Esterase 500 A Urine RBC 127 H Urine WBC > 182 H Urine Bacteria Few A 04/04/21 04/04/21 04/03/21 05:23 05:22 05:03 RBC 2.92 L Hgb 9.2 L Hct 30.3 L MCV 103.8 H MCHC 30.4 L RDW 21.0 H Plt Count 125 L MPV 12.6 H Neut % (Auto) 87.4 H Lymph % (Auto) 7.7 L Lymph # (Auto) 0.45 L Absolute Neutrophils Chloride 111 H 110 H Carbon Dioxide 20 L 20 L Calcium 7.8 L 7.8 L Alkaline Phosphatase 119 H Total Protein 5.2 L 5.1 L Albumin 2.2 L 2.3 L Albumin/Globulin Ratio 0.7 L 0.8 L Vit D 1,25-Dihydroxy Urine Appearance Urine Protein Urine Nitrate Ur Leukocyte Esterase Urine RBC Urine WBC Urine Bacteria 04/03/21 03/29/21 05:03 19:21 RBC 2.81 L Hgb 9.0 L Hct 28.4 L MCV 101.1 H MCHC RDW 21.1 H Plt Count MPV 12.1 H Neut % (Auto) 87.7 H Lymph % (Auto) 7.9 L Lymph # (Auto) 0.77 L Absolute Neutrophils 8.50 H Chloride Carbon Dioxide Calcium Alkaline Phosphatase Total Protein Albumin Albumin/Globulin Ratio Vit D 1,25-Dihydroxy 16 L Urine Appearance Urine Protein Urine Nitrate Ur Leukocyte Esterase Urine RBC Urine WBC Urine Bacteria Meds: Medications Acetaminophen (Acetaminophen 325 Mg Tablet) 650 mg PO Q6HP PRN; Protocol PRN Reason: Per Pain Protocol/Fever > 101 Last Admin: 04/02/21 00:53 Dose: 650 mg Documented by: Hydrocodone Bitart/Acetaminophen (Hydrocodone/Apap 5/325mg Tablet) 1 tab PO Q4HP PRN PRN Reason: PAIN LEVEL 3-6 Last Admin: 04/05/21 07:30 Dose: 1 tab Documented by: Albuterol/Ipratropium (Ipratropium/Albuterol 3 Ml Ampul.Neb) 3 ml NEB Q4HP PRN PRN Reason: Shortness Of Breath Atenolol (Atenolol 50 Mg Tablet) 50 mg PO DAILY [facility] Last Admin: 04/05/21 10:01 Dose: 50 mg Documented by: Calcium/Vitamin D (Calcium W/Vit D3 500 Mg Tablet) 1,000 mg PO DAILY [facility] Last Admin: 04/05/21 10:00 Dose: 1,000 mg Documented by: Cyanocobalamin (Cyanocobalamin (Vitamin B-12) 500 Mcg Tablet) 2,500 mcg PO DAILY [facility] Last Admin: 04/05/21 10:00 Dose: 2,500 mcg Documented by: Docusate Sodium (Docusate Sodium 100 Mg Capsule) 100 mg PO BID [facility] Last Admin: 04/05/21 10:02 Dose: Not Given Documented by: Enoxaparin Sodium (Enoxaparin 40 Mg/0.4 Ml Syringe) 40 mg SQ DAILY [facility] Last Admin: 04/05/21 10:04 Dose: Not Given Documented by: Famotidine (Famotidine/Pf 20 Mg/2 Ml Vial) 20 mg IV HS [facility] Last Admin: 04/04/21 20:57 Dose: 20 mg Documented by: Ferrous Sulfate (Ferrous Sulfate 325 Mg Tablet) [facility] Last Admin: 04/05/21 07:30 Dose: 325 mg Documented by: Gemfibrozil (Gemfibrozil 600 Mg Tablet) 600 mg PO BID [facility] Last Admin: 04/05/21 10:01 Dose: 600 mg Documented by: Guaifenesin (Guaifenesin/Dextromethorphan Oral Mulu) 10 ml PO Q4HP PRN PRN Reason: Cough Last Admin: 04/05/21 00:37 Dose: 10 ml Documented by: Hydralazine HCl (Hydralazine 20 Mg/Ml Vial) 0 mg IV Q2HP PRN PRN Reason: Hypertension Last Admin: 04/05/21 04:18 Dose: 20 mg Documented by: Hydroxyzine HCl (Hydroxyzine 25 Mg Tablet) 25 mg PO QHS [facility] Last Admin: 04/04/21 21:02 Dose: 25 mg Documented by: Potassium Chloride 40 meq/ (Dextrose) 520 mls @ 130 mls/hr IV UD PRN PRN Reason: Potassium < 3 Magnesium Sulfate (Magnesium Sulfate) 2 gm in 50 mls @ 50 mls/hr IV UD PRN PRN Reason: Magnesium </= 1.6 Last Infusion: 03/30/21 01:45 Dose: Infused Documented by: Ketorolac Tromethamine (Ketorolac 15 Mg/Ml Vial) 15 mg IV Q6HP PRN PRN Reason: Per Pain Protocol Last Admin: 04/03/21 19:08 Dose: 15 mg Documented by: Levothyroxine Sodium (Levothyroxine 50 Mcg Tablet) 50 mcg PO QAMAC [facility] Last Admin: 04/05/21 07:30 Dose: 50 mcg Documented by: Meclizine HCl (Meclizine 25 Mg Tablet) 12.5 mg PO BIDP PRN PRN Reason: Vertigo Last Admin: 03/30/21 21:28 Dose: 12.5 mg Documented by: Melatonin (Melatonin 3 Mg Tablet) 3 mg PO HS PRN PRN Reason: Sleep Last Admin: 04/04/21 21:01 Dose: 3 mg Documented by: Morphine Sulfate (Morphine 4 Mg/Ml Vial) 0 mg IV Q3HP PRN PRN Reason: Pain Last Admin: 04/01/21 18:56 Dose: 2 mg Documented by: Ondansetron HCl (Ondansetron 4 Mg/2 Ml Vial) 4 mg IV Q4HP PRN PRN Reason: Nausea And Vomiting Polyethylene Glycol (Polyethylene Glycol 3350 17 Gm Packet) 17 gm PO DAILYP PRN PRN Reason: Constipation Potassium Chloride (Potassium Chloride 20 Meq Tablet) 40 meq PO UD PRN PRN Reason: Potssium is 3-3.5 Potassium Chloride (Potassium Chloride 20 Meq Tablet) 40 meq PO UD PRN PRN Reason: Potassium < 3 Pregabalin (Pregabalin 25 Mg Capsule) 50 mg PO HS [facility] Last Admin: 04/04/21 21:01 Dose: 50 mg Documented by: Promethazine HCl (Promethazine 25 Mg/Ml Vial) 12.5 mg IV Q6HP PRN PRN Reason: Nausea And Vomiting Senna (Sennosides 1 Tablet) 2 tab PO DAILYP PRN PRN Reason: Constipation Last Admin: 03/31/21 21:37 Dose: 2 tab Documented by: Sodium Chloride (0.9 % Sodium Chloride 10 Ml Syringe) 10 ml IV Q8 [facility] Last Admin: 04/05/21 13:56 Dose: 10 ml Documented by: Sodium Chloride (0.9 % Sodium Chloride 10 Ml Syringe) 10 ml IV Q12 [facility] Last Admin: 04/05/21 13:56 Dose: 10 ml Documented by: Sodium Chloride (0.9 % Sodium Chloride 10 Ml Syringe) 10 ml IV UD PRN PRN Reason: Anesthesia Sodium Chloride (0.9 % Sodium Chloride 10 Ml Syringe) 10 ml IV Q8 [facility] Last Admin: 04/05/21 13:56 Dose: 10 ml Documented by: Vitamin D (Vitamin D3 400 Unit Tablet) 800 unit PO DAILY [facility] Last Admin: 04/05/21 10:01 Dose: 800 unit Documented by: A/P Assessment and plan (1) 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 plan for discharge to SNF 2. follow up with [facility] in 2 weeks for staple removal and post op check 3. Walker for ambulation 4. pillow between legs when sleeping 5. ASA 81 mg BID for 30 days for DVT prophylaxis 6. medicine per hospitalists (3) Hyperlipidemia: Status: Chronic Qualifiers: Hyperlipidemia type: unspecified Qualified Code(s): E78.5 - Hyperlipidemia, unspecified (4) GERD (gastroesophageal reflux disease): Status: Chronic Qualifiers: Esophagitis presence: with esophagitis Qualified Code(s): K21.0 - Gastro-esophageal reflux disease with esophagitis (5) Anemia, iron deficiency: Status: Chronic Qualifiers: Iron deficiency anemia type: unspecified iron deficiency Qualified Code(s): D50.9 - Iron deficiency anemia, unspecified (6) Hypokalemia: Status: Chronic (7) Hypertension: Status: Chronic Qualifiers: Hypertension type: essential hypertension Qualified Code(s): I10 - Essential (primary) hypertension (8) Hypothyroidism: Status: Chronic (9) COPD (chronic obstructive pulmonary disease): Status: Chronic Qualifiers: COPD type: chronic bronchitis Chronic bronchitis type: mucopurulent Qualified Code(s): J41.1 - Mucopurulent chronic bronchitis (10) UTI (urinary tract infection): Status: Chronic (11) Asymptomatic COVID-19 virus infection: Status: Acute Narrative A/P Narrative: Assessment and plan: 1. Right proximal femur periprosthetic fracture: Inpatient MedSur Orthopedic surgeon Dr. Atkins consulted Status post ORIF and revisions of previous right hip hemiarthroplasty and placement of a long stem hemiarthroplasty by Dr. Atkins on 04/01 Physical and Occupational Therapy evaluation and treatment after the surgery Tylenol as needed mild pain [place] as needed moderate pain Morphine as needed severe pain #2 anemia: H/H stable after surgery on 04/01 Repeat CBC in the morning to trend H&H #3 history of COPD, stable: Continue bronchodilator as needed for wheezing or shortness of breath #4 history of hypothyroidism: Continue thyroid replacement therapy 5. History of essential hypertension's: Currently normotensive Continue atenolol 6. History of mixed dyslipidemia: Continue gemfibrozil 7. Hypokalemia: RESOLVED Continue potassium replacement according to protocol CMP in the morning to trend serum potassium level and repeat replacement as needed Also check serum magnesium level and will replace if needed 8. Vitamin D deficiency and hypocalcemia: Continue vitamin D calcium oral replacement Stop PPI and switch to H2 inhibitor Hold diuretics 9. UTI: UA suggestive of UTI Urine culture Bactrim DS X3 days 10. Asymptomatic CoVID infection: Currently on room air CoVID PCR confirmatory test following positive mabel results Isolation protocol: airborne and contact until negative CoVID PCR confirmatory test negative or 10 days later GI prophylaxis: Famotidine DVT prophylaxis: SCDs, resume Lovenox as DVT ppx CODE STATUS: DNI DNR Prognosis: Stable Dispositions: Inpatient MedSurg Time Spent With Patient Time: Total time spent is greater than 50% in coordination of care (as documented) at patient's floor/unit and/or counseling patient: QUALITY VTE Deep Vein Thrombosis/Pulmonary Embolism Present on Admission: No
[2021-04-05] MEDS ORDERED: METOCLOPRAMIDE 10 MG TABLET PO PRN (18:54)
[2021-04-05] MEDS: PREGABALIN 25 MG CAPSULE PO SCH (21:10)
[2021-04-05] MEDS: FAMOTIDINE 20 MG TABLET PO SCH (21:11)
[2021-04-05] MEDS: SULFAMETHOXAZOLE/TRIMETHOPRIM 1 TABLET PO SCH (21:12)
[2021-04-05] MEDS: hydrOXYzine 25 MG TABLET PO SCH (21:13)
[2021-04-06] MEDS: HYDROcodone/APAP 5/325MG TABLET PO PRN ×5 (02:08→20:12)
[2021-04-06] MEDS ORDERED: hydrALAZINE 10 MG TABLET PO ONE (02:29)
[2021-04-06 07:38] LABS: Basophils # (Auto) 0.01 K/mcL (0.00-0.30); Basophils % (Auto) 0.1 % (0.0-2.0); Eosinophils # (Auto) 0.03 K/mcL (0.00-0.70); Eosinophils % (Auto) 0.4 % (0.0-7.0); Hematocrit 29.1 % (34.1-44.9); Hemoglobin 8.7 g/dL (11.2-15.7); Lymphocytes # (Auto) 0.57 K/mcL (1.50-4.80); Mean Cell Volume 103.9 fL (80.0-100.0); Mean Corpuscular HGB Conc 29.9 g/dL (31.0-36.0); Mean Platelet Volume 12.8 fL (7.4-10.4); Monocytes # (Auto) 0.39 K/mcL (0.10-0.90); Monocytes % (Auto) 5.5 % (1.0-12.0); Platelet Count 139 K/mcL (140-440); Red Cell Distribution Width 18.9 % (11.5-14.5); WBC 7.1 K/mcL (4.5-11.0)
[2021-04-06 07:41] LABS: ALT/SGPT < 5 U/L (<40); AST/SGOT 18 U/L (<32); Albumin 2.4 gm/dL (3.2-5.2); Albumin/Globulin Ratio 0.9 (1.0-2.3); Alkaline Phosphatase 110 U/L (39-117); Bilirubin,Total 0.5 mg/dL (0.1-1.0); Blood Urea Nitrogen 18 mg/dL (8-23); Calcium 8.5 mg/dL (8.6-10.4); Carbon Dioxide 24 mmol/L (22-30); Chloride 107 mmol/L (96-108); Globulin 2.8 gm/dL (2.2-3.7); Glomerular Filtration Rate 78; Glucose 91 mg/dL (70-105)
[2021-04-06] MEDS: SULFAMETHOXAZOLE/TRIMETHOPRIM 1 TABLET PO SCH ×2 (10:40→20:12)
[2021-04-06] MEDS: LEVOTHYROXINE 50 MCG TABLET PO SCH (10:40)
[2021-04-06] MEDS: FAMOTIDINE 20 MG TABLET PO SCH ×2 (10:40→20:13)
[2021-04-06] MEDS: ATENOLOL 50 MG TABLET PO SCH (10:40)
[2021-04-06] MEDS: CYANOCOBALAMIN (VITAMIN B-12) 500 MCG TABLET PO SCH (10:41)
[2021-04-06] MEDS: FERROUS SULFATE 325 MG TABLET PO SCH ×2 (10:41→17:30)
[2021-04-06] MEDS: VITAMIN D3 400 UNIT TABLET PO SCH (10:41)
[2021-04-06] MEDS: GEMFIBROZIL 600 MG TABLET PO SCH ×2 (10:41→20:29)
[2021-04-06] MEDS: ENOXAPARIN 40 MG/0.4 ML SYRINGE SQ SCH (10:42)
[2021-04-06] MEDS: CALCIUM W/VIT D3 500 MG TABLET PO SCH (10:42)
[2021-04-06] MEDS: DOCUSATE SODIUM 100 MG CAPSULE PO SCH ×2 (10:42→20:17)
--- NOTE | 2021-04-06 11:31 | Internal Med Progress Note ---
SUBJECTIVE Subjective Patient information: Note initiated : 04/06/21 at 11:28 am Service Date, if different from initiated Date: [] Patient: Corinne Crawford 85 y/o F admitted on 03/29/21 for right hip pain. Chief Complaint: [right hip pain] Interval history: HISTORY OF PRESENT ILLNESS: Pleasant 85-year-old presented to the emergency department for acute right hip pain. This patient was ambulating in the bathroom with assistance by a family member when her leg gave out and she ended up landing on her right hip, then falling backwards hitting the back of her head. There was no loss of consciousness. The patient recently had a austen-hip arthroplasty of this extremity done by Dr. Huber within in the last 6 weeks. 03/31: Hemoglobin 6.6. INR 1.2. Subjective not obtained due to clinical situations. 04/01: Hemoglobin 10.6 after 3 unit pRBC transfusion. Currently undergoing surgery by orthopedic surgeon Dr. Budren. 04/02: Status post ORIF and revisions of previous right hip hemiarthroplasty and placement of a long stem hemiarthroplasty by Dr. Atkins on 04/01. Currently denies any hip pain. Denies any fever or chills. Denies any shortness of breath. 04/03: Bower catheter removed. c/o Right hip pain. Denies any fever or chills. Denies any shortness of breath. 04/04: c/o cough. Denies chest pain. c/o general body weakness. Denies any right hip pain. Denies fever or chills or sweating. 04/05: UA suggestive of UTI. Mabel positive. No other complaints. 04/06: CoVID PCR also positive. airborne and contact isolation. Still tolerating room air. Pending discharge placement maybe to a different SNF that would take CoVID patient. Constitutional Vitals: Vital Signs Temp Pulse Resp BP Pulse Ox 37.0 C 82 16 124/78 93 04/06/21 07:34 04/06/21 07:34 04/06/21 07:34 04/06/21 07:34 04/06/21 07:34 Period Temp Pulse Resp BP Sys/Mora Pulse Ox Last 24 Hr 36.5 C-37.0 C 66-84 16-22 124-171/70-78 93-95 Intake and Output 04/05/21 04/06/21 04/06/21 21:59 05:59 13:59 Intake Total 650 240 525 Output Total 6 1 Balance 650 234 524 Weight 76.657 kg Intake & Output: Intake & Output 04/05/21 04/06/21 04/06/21 21:59 05:59 13:59 Intake Total 650 240 525 Output Total 6 1 Balance 650 234 524 Weight 76.657 kg Intake: Oral 650 240 525 Output: # of times incontinent of urine 6 1 Other: Meal Dinner Breakfast Percent of Meal Consumed 100% 100% Feeding Ability Independent Stool Size Small Moderate Stool Color Brown Brown Stool Consistency Soft Loose # Voids 6 1 # Bowel Movements 1 # of times incontinent of 2 Bowels General appearance: cooperative and no acute distress Exam: Defer Head Head exam: Present atraumatic and normocephalic Eye Eye exam: Present EOMI and PERRL ENT ENT exam: Present mucous membranes moist, normal exam and normal external ear exam Neck Neck exam: Present normal inspection; Absent lymphadenopathy, tenderness and thyromegaly Respiratory Respiratory exam: Absent accessory muscle use, respiratory distress and wheezes Cardiovascular Cardiovascular exam: Present normal rate and rhythm; Absent JVD GI/Abdominal GI/Abdominal exam: Present normal bowel sounds and soft; Absent organomegaly and tenderness Extremities Exam Extremities exam: Present normal capillary refill and tenderness; Absent full ROM and normal inspection Additional comments: right lateral hip covered by surgical dressing Neurological Exam Neurological exam: Present alert, CN II-XII intact and oriented X3; Absent motor sensory deficit Psychiatric Psychiatric exam: Present normal affect and normal mood; Absent anxious and depressed Skin Skin exam: Present dry and intact OBJ DATA Labs CBC & Chem 7: 04/06/21 05:50 04/06/21 05:50 Labs: Abnormal Lab Results 04/06/21 04/06/21 04/05/21 05:50 05:50 11:31 RBC 2.80 L Hgb 8.7 L Hct 29.1 L MCV 103.9 H MCHC 29.9 L RDW 18.9 H Plt Count 139 L MPV 12.8 H Neut % (Auto) 86.0 H Lymph % (Auto) 8.0 L Lymph # (Auto) 0.57 L Chloride Carbon Dioxide Calcium 8.5 L Total Protein 5.2 L Albumin 2.4 L Albumin/Globulin Ratio 0.9 L Vit D 1,25-Dihydroxy Urine Appearance Turbid A Urine Protein 30 A Urine Nitrate Pos A Ur Leukocyte Esterase 500 A Urine RBC 127 H Urine WBC > 182 H Urine Bacteria Few A 04/05/21 04/05/21 04/04/21 05:07 05:07 05:23 RBC 2.88 L 2.92 L Hgb 9.1 L 9.2 L Hct 30.3 L 30.3 L MCV 105.2 H 103.8 H MCHC 30.0 L 30.4 L RDW 19.8 H 21.0 H Plt Count 130 L 125 L MPV 12.9 H 12.6 H Neut % (Auto) 89.0 H 87.4 H Lymph % (Auto) 6.3 L 7.7 L Lymph # (Auto) 0.49 L 0.45 L Chloride 109 H Carbon Dioxide Calcium 8.3 L Total Protein 5.5 L Albumin 2.6 L Albumin/Globulin Ratio 0.9 L Vit D 1,25-Dihydroxy Urine Appearance Urine Protein Urine Nitrate Ur Leukocyte Esterase Urine RBC Urine WBC Urine Bacteria 04/04/21 03/29/21 05:22 19:21 RBC Hgb Hct MCV MCHC RDW Plt Count MPV Neut % (Auto) Lymph % (Auto) Lymph # (Auto) Chloride 111 H Carbon Dioxide 20 L Calcium 7.8 L Total Protein 5.2 L Albumin 2.2 L Albumin/Globulin Ratio 0.7 L Vit D 1,25-Dihydroxy 16 L Urine Appearance Urine Protein Urine Nitrate Ur Leukocyte Esterase Urine RBC Urine WBC Urine Bacteria Meds: Medications Acetaminophen (Acetaminophen 325 Mg Tablet) 650 mg PO Q6HP PRN; Protocol PRN Reason: Per Pain Protocol/Fever > 101 Last Admin: 04/02/21 00:53 Dose: 650 mg Documented by: Hydrocodone Bitart/Acetaminophen (Hydrocodone/Apap 5/325mg Tablet) 1 tab PO Q4HP PRN PRN Reason: PAIN LEVEL 3-6 Last Admin: 04/06/21 10:42 Dose: 1 tab Documented by: Albuterol/Ipratropium (Ipratropium/Albuterol 3 Ml Ampul.Neb) 3 ml NEB Q4HP PRN PRN Reason: Shortness Of Breath Atenolol (Atenolol 50 Mg Tablet) 50 mg PO DAILY [facility] Last Admin: 04/06/21 10:40 Dose: 50 mg Documented by: Calcium/Vitamin D (Calcium W/Vit D3 500 Mg Tablet) 1,000 mg PO DAILY [facility] Last Admin: 04/06/21 10:42 Dose: 1,000 mg Documented by: Cyanocobalamin (Cyanocobalamin (Vitamin B-12) 500 Mcg Tablet) 2,500 mcg PO DAILY [facility] Last Admin: 04/06/21 10:41 Dose: 2,500 mcg Documented by: Docusate Sodium (Docusate Sodium 100 Mg Capsule) 100 mg PO BID [facility] Last Admin: 04/06/21 10:42 Dose: Not Given Documented by: Enoxaparin Sodium (Enoxaparin 40 Mg/0.4 Ml Syringe) 40 mg SQ DAILY [facility] Last Admin: 04/06/21 10:42 Dose: 40 mg Documented by: Famotidine (Famotidine 20 Mg Tablet) 20 mg PO BID [facility] Last Admin: 04/06/21 10:40 Dose: 20 mg Documented by: Ferrous Sulfate (Ferrous S[facility]ate 325 Mg Tablet) [facility] Last Admin: 04/06/21 10:41 Dose: 325 mg Documented by: Gemfibrozil (Gemfibrozil 600 Mg Tablet) 600 mg PO BID [facility] Last Admin: 04/06/21 10:41 Dose: 600 mg Documented by: Guaifenesin (Guaifenesin/Dextromethorphan Oral Mulu) 10 ml PO Q4HP PRN PRN Reason: Cough Last Admin: 04/05/21 21:50 Dose: 10 ml Documented by: Hydralazine HCl (Hydralazine 20 Mg/Ml Vial) 0 mg IV Q2HP PRN PRN Reason: Hypertension Last Admin: 04/05/21 04:18 Dose: 20 mg Documented by: Hydroxyzine HCl (Hydroxyzine 25 Mg Tablet) 25 mg PO QHS [facility] Last Admin: 04/05/21 21:13 Dose: 25 mg Documented by: Potassium Chloride 40 meq/ (Dextrose) 520 mls @ 130 mls/hr IV UD PRN PRN Reason: Potassium < 3 Magnesium Sulfate (Magnesium Sulfate) 2 gm in 50 mls @ 50 mls/hr IV UD PRN PRN Reason: Magnesium </= 1.6 Last Infusion: 03/30/21 01:45 Dose: Infused Documented by: Ketorolac Tromethamine (Ketorolac 15 Mg/Ml Vial) 15 mg IV Q6HP PRN PRN Reason: Per Pain Protocol Last Admin: 04/03/21 19:08 Dose: 15 mg Documented by: Levothyroxine Sodium (Levothyroxine 50 Mcg Tablet) 50 mcg PO QAMAC [facility] Last Admin: 04/06/21 10:40 Dose: 50 mcg Documented by: Meclizine HCl (Meclizine 25 Mg Tablet) 12.5 mg PO BIDP PRN PRN Reason: Vertigo Last Admin: 03/30/21 21:28 Dose: 12.5 mg Documented by: Melatonin (Melatonin 3 Mg Tablet) 3 mg PO HS PRN PRN Reason: Sleep Last Admin: 04/04/21 21:01 Dose: 3 mg Documented by: Metoclopramide HCl (Metoclopramide 10 Mg Tablet) 10 mg PO TIDAC PRN PRN Reason: Nausea And Vomiting Polyethylene Glycol (Polyethylene Glycol 3350 17 Gm Packet) 17 gm PO DAILYP PRN PRN Reason: Constipation Potassium Chloride (Potassium Chloride 20 Meq Tablet) 40 meq PO UD PRN PRN Reason: Potssium is 3-3.5 Potassium Chloride (Potassium Chloride 20 Meq Tablet) 40 meq PO UD PRN PRN Reason: Potassium < 3 Pregabalin (Pregabalin 25 Mg Capsule) 50 mg PO HS [facility] Last Admin: 04/05/21 21:10 Dose: 50 mg Documented by: Senna (Sennosides 1 Tablet) 2 tab PO DAILYP PRN PRN Reason: Constipation Last Admin: 03/31/21 21:37 Dose: 2 tab Documented by: Trimethoprim/Sulfamethoxazole (Sulfamethoxazole/Trimethoprim 1 Tablet) 1 tab PO BID [facility]; Protocol Stop: 04/08/21 09:01 Last Admin: 04/06/21 10:40 Dose: 1 tab Documented by: Vitamin D (Vitamin D3 400 Unit Tablet) 800 unit PO DAILY [facility] Last Admin: 04/06/21 10:41 Dose: 800 unit Documented by: A/P Assessment and plan (1) 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 plan for discharge to SNF 2. follow up with [facility] in 2 weeks for staple removal and post op check 3. Walker for ambulation 4. pillow between legs when sleeping 5. ASA 81 mg BID for 30 days for DVT prophylaxis 6. medicine per hospitalists (3) Hyperlipidemia: Status: Chronic Qualifiers: Hyperlipidemia type: unspecified Qualified Code(s): E78.5 - Hyperlipidemia, unspecified (4) GERD (gastroesophageal reflux disease): Status: Chronic Qualifiers: Esophagitis presence: with esophagitis Qualified Code(s): K21.0 - Gastro-esophageal reflux disease with esophagitis (5) Anemia, iron deficiency: Status: Chronic Qualifiers: Iron deficiency anemia type: unspecified iron deficiency Qualified Code(s): D50.9 - Iron deficiency anemia, unspecified (6) Hypokalemia: Status: Chronic (7) Hypertension: Status: Chronic Qualifiers: Hypertension type: essential hypertension Qualified Code(s): I10 - Essential (primary) hypertension (8) Hypothyroidism: Status: Chronic (9) COPD (chronic obstructive pulmonary disease): Status: Chronic Qualifiers: COPD type: chronic bronchitis Chronic bronchitis type: mucopurulent Qualified Code(s): J41.1 - Mucopurulent chronic bronchitis (10) UTI (urinary tract infection): Status: Chronic (11) Asymptomatic COVID-19 virus infection: Status: Acute Narrative A/P Narrative: Assessment and plan: 1. Right proximal femur periprosthetic fracture: Inpatient [facility] Orthopedic surgeon Dr. Atkins consulted Status post ORIF and revisions of previous right hip hemiarthroplasty and placement of a long stem hemiarthroplasty by Dr. Atkins on 04/01 Physical and Occupational Therapy evaluation and treatment after the surgery Tylenol as needed mild pain [place] as needed moderate pain Morphine as needed severe pain #2 anemia: H/H stable after surgery on 04/01 Repeat CBC in the morning to trend H&H #3 history of COPD, stable: Continue bronchodilator as needed for wheezing or shortness of breath #4 history of hypothyroidism: Continue thyroid replacement therapy 5. History of essential hypertension's: Currently normotensive Continue atenolol 6. History of mixed dyslipidemia: Continue gemfibrozil 7. Hypokalemia: RESOLVED Continue potassium replacement according to protocol CMP in the morning to trend serum potassium level and repeat replacement as needed Also check serum magnesium level and will replace if needed 8. Vitamin D deficiency and hypocalcemia: Continue vitamin D calcium oral replacement Stop PPI and switch to H2 inhibitor Hold diuretics 9. UTI: UA suggestive of UTI Urine culture Bactrim DS X3 days 10. Asymptomatic CoVID infection: Currently on room air CoVID PCR also positive Isolation protocol: airborne and contact Pending discharge to another halfway that would take Covid positive patient GI prophylaxis: Famotidine DVT prophylaxis: SCDs CODE STATUS: DNI DNR Prognosis: Stable Dispositions: Inpatient MedSurg Time Spent With Patient Time: Total time spent is greater than 50% in coordination of care (as documented) at patient's floor/unit and/or counseling patient: QUALITY VTE Deep Vein Thrombosis/Pulmonary Embolism Present on Admission: No
[2021-04-06] MEDS: hydrOXYzine 25 MG TABLET PO SCH (20:12)
[2021-04-06] MEDS: PREGABALIN 25 MG CAPSULE PO SCH (20:12)
[2021-04-06] MEDS: MELATONIN 3 MG TABLET PO PRN (21:11)
[2021-04-06] MEDS: LISINOPRIL 2.5 MG TABLET PO SCH (22:42)
[2021-04-07] MEDS: HYDROcodone/APAP 5/325MG TABLET PO PRN ×4 (02:50→21:02)
[2021-04-07 07:23] LABS: Blood Urea Nitrogen 21 mg/dL (8-23); Calcium 7.8 mg/dL (8.6-10.4); Carbon Dioxide 24 mmol/L (22-30); Chloride 103 mmol/L (96-108); Glomerular Filtration Rate 66; Glucose 83 mg/dL (70-105)
[2021-04-07] MEDS: LEVOTHYROXINE 50 MCG TABLET PO SCH (07:32)
[2021-04-07] MEDS: CYANOCOBALAMIN (VITAMIN B-12) 500 MCG TABLET PO SCH (07:32)
[2021-04-07] MEDS: FAMOTIDINE 20 MG TABLET PO SCH ×2 (07:32→19:30)
[2021-04-07] MEDS: GEMFIBROZIL 600 MG TABLET PO SCH ×2 (07:32→19:30)
[2021-04-07] MEDS: VITAMIN D3 400 UNIT TABLET PO SCH (07:32)
[2021-04-07] MEDS: CALCIUM W/VIT D3 500 MG TABLET PO SCH (07:32)
[2021-04-07] MEDS: FERROUS SULFATE 325 MG TABLET PO SCH ×2 (07:32→17:15)
[2021-04-07] MEDS: SULFAMETHOXAZOLE/TRIMETHOPRIM 1 TABLET PO SCH ×2 (07:32→19:31)
[2021-04-07] MEDS: ENOXAPARIN 40 MG/0.4 ML SYRINGE SQ SCH (07:33)
[2021-04-07] MEDS: DOCUSATE SODIUM 100 MG CAPSULE PO SCH ×2 (07:33→19:32)
[2021-04-07] MEDS: ATENOLOL 50 MG TABLET PO SCH (07:33)
[2021-04-07 08:17] LABS: Basophils # (Auto) 0.01 K/mcL (0.00-0.30); Basophils % (Auto) 0.1 % (0.0-2.0); Eosinophils # (Auto) 0.04 K/mcL (0.00-0.70); Eosinophils % (Auto) 0.6 % (0.0-7.0); Hematocrit 27.9 % (34.1-44.9); Hemoglobin 8.3 g/dL (11.2-15.7); Lymphocytes # (Auto) 0.54 K/mcL (1.50-4.80); Lymphocytes % (Auto) 7.7 % (15.5-49.0); Mean Cell Volume 106.1 fL (80.0-100.0); Mean Corpuscular HGB Conc 29.7 g/dL (31.0-36.0); Mean Platelet Volume 12.4 fL (7.4-10.4); Monocytes # (Auto) 0.34 K/mcL (0.10-0.90); Monocytes % (Auto) 4.9 % (1.0-12.0); Neutrophils % (Auto) 86.7 % (38.0-78.0); Platelet Count 134 K/mcL (140-440); RBC 2.63 M/mcL (3.59-5.38); Red Cell Distribution Width 18.4 % (11.5-14.5)
--- NOTE | 2021-04-07 15:55 | Internal Med Progress Note ---
SUBJECTIVE Subjective Patient information: Note initiated : 04/07/21 at 3:53 pm Service Date, if different from initiated Date: [] Patient: Corinne Crawford 85 y/o F admitted on 03/29/21 for right hip pain. Chief Complaint: [] Interval history: Pleasant 85-year-old presented to the emergency department for acute right hip pain. This patient was ambulating in the bathroom with assistance by a family member when her leg gave out and she ended up landing on her right hip, then falling backwards hitting the back of her head. There was no loss of consciousness. The patient recently had a austen-hip arthroplasty of this extremity done by Dr. Huber within in the last 6 weeks. 03/31: Hemoglobin 6.6. INR 1.2. Subjective not obtained due to clinical situations. 04/01: Hemoglobin 10.6 after 3 unit pRBC transfusion. Currently undergoing surgery by orthopedic surgeon Dr. Burden. 04/02: Status post ORIF and revisions of previous right hip hemiarthroplasty and placement of a long stem hemiarthroplasty by Dr. Atkins on 04/01. Currently denies any hip pain. Denies any fever or chills. Denies any shortness of breath. 04/03: Bower catheter removed. c/o Right hip pain. Denies any fever or chills. Denies any shortness of breath. 04/04: c/o cough. Denies chest pain. c/o general body weakness. Denies any right hip pain. Denies fever or chills or sweating. 04/05: UA suggestive of UTI. Mabel positive. No other complaints. 04/06: CoVID PCR also positive. airborne and contact isolation. Still tolerating room air. Pending discharge placement maybe to a different SNF that would take CoVID patient. 04/07: No major events overnight. Physical exam Head: Atraumatic, normal inspection. Eyes: normal appearance, no scleral icterus. Neck: full ROM Respiratory: no respiratory distress. Cardiovascular: normal rate and rhythm, S1, S2. GI/Abdominal: soft, nontender, no guarding. Extremities: full range of motion, nontender. Neurological: CN II-XII intact, intact motor, intact sensation. Psychiatric: normal mood. Skin: warm, normal color Constitutional Vitals: Vital Signs Temp Pulse Resp BP Pulse Ox 98.3 F 68 15 144/78 96 04/07/21 12:00 04/07/21 12:00 04/07/21 12:00 04/07/21 12:00 04/07/21 12:00 Period Temp Pulse Resp BP Sys/Mora Pulse Ox Last 24 Hr 97 F-99.0 F 68-89 15-22 128-184/56-87 91-96 Intake and Output 04/07/21 04/07/21 04/07/21 05:59 13:59 21:59 Intake Total 480 Output Total 4 2 Balance 476 -2 Intake & Output: Intake & Output 04/07/21 04/07/21 04/07/21 05:59 13:59 21:59 Intake Total 480 Output Total 4 2 Balance 476 -2 Intake: Oral 480 Output: # of times incontinent of urine 4 2 Other: Meal Breakfast Percent of Meal Consumed 100% Urine Color Bright Yellow Urine Odor Normal Normal OBJ DATA Labs CBC & Chem 7: 04/07/21 05:25 04/07/21 05:25 Labs: Abnormal Lab Results 04/07/21 04/07/21 04/06/21 05:25 05:25 05:50 RBC 2.63 L Hgb 8.3 L Hct 27.9 L MCV 106.1 H MCHC 29.7 L RDW 18.4 H Plt Count 134 L MPV 12.4 H Neut % (Auto) 86.7 H Lymph % (Auto) 7.7 L Lymph # (Auto) 0.54 L Chloride Calcium 7.8 L 8.5 L Total Protein 5.2 L Albumin 2.4 L Albumin/Globulin Ratio 0.9 L Urine Appearance Urine Protein Urine Nitrate Ur Leukocyte Esterase Urine RBC Urine WBC Urine Bacteria 04/06/21 04/05/21 04/05/21 05:50 11:31 05:07 RBC 2.80 L Hgb 8.7 L Hct 29.1 L MCV 103.9 H MCHC 29.9 L RDW 18.9 H Plt Count 139 L MPV 12.8 H Neut % (Auto) 86.0 H Lymph % (Auto) 8.0 L Lymph # (Auto) 0.57 L Chloride 109 H Calcium 8.3 L Total Protein 5.5 L Albumin 2.6 L Albumin/Globulin Ratio 0.9 L Urine Appearance Turbid A Urine Protein 30 A Urine Nitrate Pos A Ur Leukocyte Esterase 500 A Urine RBC 127 H Urine WBC > 182 H Urine Bacteria Few A 04/05/21 05:07 RBC 2.88 L Hgb 9.1 L Hct 30.3 L MCV 105.2 H MCHC 30.0 L RDW 19.8 H Plt Count 130 L MPV 12.9 H Neut % (Auto) 89.0 H Lymph % (Auto) 6.3 L Lymph # (Auto) 0.49 L Chloride Calcium Total Protein Albumin Albumin/Globulin Ratio Urine Appearance Urine Protein Urine Nitrate Ur Leukocyte Esterase Urine RBC Urine WBC Urine Bacteria Meds: Medications Acetaminophen (Acetaminophen 325 Mg Tablet) 650 mg PO Q6HP PRN; Protocol PRN Reason: Per Pain Protocol/Fever > 101 Last Admin: 04/02/21 00:53 Dose: 650 mg Documented by: Hydrocodone Bitart/Acetaminophen (Hydrocodone/Apap 5/325mg Tablet) 1 tab PO Q4HP PRN PRN Reason: PAIN LEVEL 3-6 Last Admin: 04/07/21 10:52 Dose: 1 tab Documented by: Albuterol/Ipratropium (Ipratropium/Albuterol 3 Ml Ampul.Neb) 3 ml NEB Q4HP PRN PRN Reason: Shortness Of Breath Atenolol (Atenolol 50 Mg Tablet) 50 mg PO DAILY [facility] Last Admin: 04/07/21 07:33 Dose: 50 mg Documented by: Calcium/Vitamin D (Calcium W/Vit D3 500 Mg Tablet) 1,000 mg PO DAILY [facility] Last Admin: 04/07/21 07:32 Dose: 1,000 mg Documented by: Cyanocobalamin (Cyanocobalamin (Vitamin B-12) 500 Mcg Tablet) 2,500 mcg PO DAILY [facility] Last Admin: 04/07/21 07:32 Dose: 2,500 mcg Documented by: Docusate Sodium (Docusate Sodium 100 Mg Capsule) 100 mg PO BID [facility] Last Admin: 04/07/21 07:33 Dose: Not Given Documented by: Enoxaparin Sodium (Enoxaparin 40 Mg/0.4 Ml Syringe) 40 mg SQ DAILY [facility] Last Admin: 04/07/21 07:33 Dose: 40 mg Documented by: Famotidine (Famotidine 20 Mg Tablet) 20 mg PO BID [facility] Last Admin: 04/07/21 07:32 Dose: 20 mg Documented by: Ferrous Sulfate (Ferrous Sulfate 325 Mg Tablet) 325 mg PO BIDCC [facility] Last Admin: 04/07/21 07:32 Dose: 325 mg Documented by: Gemfibrozil (Gemfibrozil 600 Mg Tablet) 600 mg PO BID [facility] Last Admin: 04/07/21 07:32 Dose: 600 mg Documented by: Guaifenesin (Guaifenesin/Dextromethorphan Oral Mulu) 10 ml PO Q4HP PRN PRN Reason: Cough Last Admin: 04/05/21 21:50 Dose: 10 ml Documented by: Hydroxyzine HCl (Hydroxyzine 25 Mg Tablet) 25 mg PO QHS [facility] Last Admin: 04/06/21 20:12 Dose: 25 mg Documented by: Potassium Chloride 40 meq/ (Dextrose) 520 mls @ 130 mls/hr IV UD PRN PRN Reason: Potassium < 3 Magnesium Sulfate (Magnesium Sulfate) 2 gm in 50 mls @ 50 mls/hr IV UD PRN PRN Reason: Magnesium </= 1.6 Last Infusion: 03/30/21 01:45 Dose: Infused Documented by: Ketorolac Tromethamine (Ketorolac 15 Mg/Ml Vial) 15 mg IV Q6HP PRN PRN Reason: Per Pain Protocol Last Admin: 04/03/21 19:08 Dose: 15 mg Documented by: Levothyroxine Sodium ([facility]othy[facility]ine 50 Mcg Tablet) [facility] Last Admin: 04/07/21 07:32 Dose: 50 mcg Documented by: Lisinopril (Lisinopril 2.5 Mg Tablet) 2.5 mg PO HS [facility] Last Admin: 04/06/21 22:42 Dose: 2.5 mg Documented by: Meclizine HCl (Meclizine 25 Mg Tablet) 12.5 mg PO BIDP PRN PRN Reason: Vertigo Last Admin: 03/30/21 21:28 Dose: 12.5 mg Documented by: Melatonin (Melatonin 3 Mg Tablet) 3 mg PO HS PRN PRN Reason: Sleep Last Admin: 04/06/21 21:11 Dose: 3 mg Documented by: Metoclopramide HCl (Metoclopramide 10 Mg Tablet) 10 mg PO TIDAC PRN PRN Reason: Nausea And Vomiting Polyethylene Glycol (Polyethylene Glycol 3350 17 Gm Packet) 17 gm PO DAILYP PRN PRN Reason: Constipation Potassium Chloride (Potassium Chloride 20 Meq Tablet) 40 meq PO UD PRN PRN Reason: Potssium is 3-3.5 Potassium Chloride (Potassium Chloride 20 Meq Tablet) 40 meq PO UD PRN PRN Reason: Potassium < 3 Pregabalin (Pregabalin 25 Mg Capsule) 50 mg PO HS [facility] Last Admin: 04/06/21 20:12 Dose: 50 mg Documented by: Senna (Sennosides 1 Tablet) 2 tab PO DAILYP PRN PRN Reason: Constipation Last Admin: 03/31/21 21:37 Dose: 2 tab Documented by: Trimethoprim/Sulfamethoxazole (Sulfamethoxazole/Trimethoprim 1 Tablet) 1 tab PO BID [facility]; Protocol Stop: 04/08/21 09:01 Last Admin: 04/07/21 07:32 Dose: 1 tab Documented by: Vitamin D (Vitamin D3 400 Unit Tablet) 800 unit PO DAILY [facility] Last Admin: 04/07/21 07:32 Dose: 800 unit Documented by: A/P Narrative A/P Narrative: Assessment: 85-year-old female with multiple comorbidities admitted for right femur periprosthetic fracture status post ORIF 04/01/21. Plan -awaiting placement Time Spent With Patient Time: Total time spent is greater than 50% in coordination of care (as documented) at patient's floor/unit and/or counseling patient: QUALITY VTE Deep Vein Thrombosis/Pulmonary Embolism Present on Admission: No
[2021-04-07] MEDS: LISINOPRIL 2.5 MG TABLET PO SCH (19:31)
[2021-04-07] MEDS: MELATONIN 3 MG TABLET PO PRN (19:33)
[2021-04-07] MEDS: PREGABALIN 25 MG CAPSULE PO SCH (19:33)
[2021-04-07] MEDS: hydrOXYzine 25 MG TABLET PO SCH (19:33)
[2021-04-07] MEDS: ACETAMINOPHEN 325 MG TABLET PO PRN (23:21)
[2021-04-08] MEDS: HYDROcodone/APAP 5/325MG TABLET PO PRN ×3 (00:51→15:24)
[2021-04-08] MEDS: LEVOTHYROXINE 50 MCG TABLET PO SCH (06:45)
[2021-04-08 09:34] LABS: Basophils # (Auto) 0.02 K/mcL (0.00-0.30); Basophils % (Auto) 0.3 % (0.0-2.0); Eosinophils # (Auto) 0.04 K/mcL (0.00-0.70); Eosinophils % (Auto) 0.7 % (0.0-7.0); Hematocrit 31.5 % (34.1-44.9); Hemoglobin 9.3 g/dL (11.2-15.7); Lymphocytes # (Auto) 0.76 K/mcL (1.50-4.80); Lymphocytes % (Auto) 12.8 % (15.5-49.0); Mean Cell Volume 107.5 fL (80.0-100.0); Mean Corpuscular HGB Conc 29.5 g/dL (31.0-36.0); Mean Platelet Volume 12.5 fL (7.4-10.4); Monocytes # (Auto) 0.34 K/mcL (0.10-0.90); Monocytes % (Auto) 5.7 % (1.0-12.0); Neutrophils % (Auto) 80.5 % (38.0-78.0); Platelet Count 192 K/mcL (140-440); RBC 2.93 M/mcL (3.59-5.38); Red Cell Distribution Width 17.9 % (11.5-14.5); WBC 5.9 K/mcL (4.5-11.0)
[2021-04-08] MEDS: ATENOLOL 50 MG TABLET PO SCH (09:53)
[2021-04-08] MEDS: FAMOTIDINE 20 MG TABLET PO SCH (09:53)
[2021-04-08] MEDS: ACETAMINOPHEN 325 MG TABLET PO PRN (09:53)
[2021-04-08] MEDS: VITAMIN D3 400 UNIT TABLET PO SCH (09:53)
[2021-04-08] MEDS: GEMFIBROZIL 600 MG TABLET PO SCH (09:53)
[2021-04-08] MEDS: SULFAMETHOXAZOLE/TRIMETHOPRIM 1 TABLET PO SCH (09:53)
[2021-04-08] MEDS: DOCUSATE SODIUM 100 MG CAPSULE PO SCH (09:53)
[2021-04-08] MEDS: FERROUS SULFATE 325 MG TABLET PO SCH ×2 (09:53→15:33)
[2021-04-08] MEDS: CYANOCOBALAMIN (VITAMIN B-12) 500 MCG TABLET PO SCH (09:54)
[2021-04-08] MEDS: ENOXAPARIN 40 MG/0.4 ML SYRINGE SQ SCH (09:54)
[2021-04-08] MEDS: CALCIUM W/VIT D3 500 MG TABLET PO SCH (09:54)
--- NOTE | 2021-04-08 15:23 | Discharge Summary ---
Discharge Provider Provider Patient information: Note initiated : 04/08/21 at 3:19 pm Service Date, if different from initiated Date: [] Patient: Corinne Crawford 85 y/o F admitted on 03/29/21 for right hip pain. Chief Complaint: [] Date of admission: 03/29/21 21:17 Discharge date: 04/08/21 Primary care physician: WENDI Steen Consults: 03/29/21 Consult to Physician [CONS] Stat Comment: Consulting Provider: Christian Burden Reason For Exam: Physician to Consult Consult to Physician [CONS] Stat Comment: Consulting Provider: Miki Lee Reason For Exam: Physician to Consult Discharge Meds Discharge Medications Home Medications ergocalciferol (vitamin D2) 400 unit PO DAILY 10/07/15 [History Confirmed 03/29/21 Last Taken 03/29/21 12:00] omega-3 fatty acids-fish oil 1,000 mg PO DAILY 10/07/15 [History Confirmed 03/29/21 Last Taken 03/29/21 09:00] omeprazole 20 mg PO BIDAC 10/07/15 [History Confirmed 03/29/21 Last Taken 03/29/21 09:00] cyanocobalamin (vitamin B-12) 2,500 mg PO QDAY 11/12/18 [History Confirmed 03/29/21 Last Taken 03/29/21 12:00] melatonin 3 mg tablet 3 mg PO HS PRN 11/12/18 [History Confirmed 03/29/21 Last Taken 03/28/21 21:00] albuterol sulfate 90 mcg/actuation aerosol inhaler 2 puff INHALATION Q6H PRN #18 g 09/12/19 [Rx Confirmed 03/29/21 Last Taken Unknown] atenolol 50 mg tablet 50 mg PO DAILY #90 tab 08/17/20 [Rx Confirmed 03/29/21 Last Taken 03/29/21 09:00] fexofenadine 180 mg tablet 180 mg PO Q24H #30 tab 09/14/20 [Rx Confirmed 03/29/21 Last Taken 03/29/21 09:00] pregabalin 50 mg capsule 50 mg PO QDAY #30 cap 10/27/20 [Rx Confirmed 03/29/21 Last Taken 03/28/21 21:00] furosemide 40 mg tablet 20 mg PO QAM tab 11/05/20 [History Confirmed 03/29/21 Last Taken 03/29/21 09:00] gemfibrozil 600 mg tablet 600 mg PO BID #180 tab 11/08/20 [Rx Confirmed 03/29/21 Last Taken 03/29/21 09:00] levothyroxine 50 mcg tablet 50 mcg PO QDAY #90 tab 11/08/20 [Rx Confirmed 03/29/21 Last Taken 03/29/21 09:00] meclizine 12.5 mg tablet 12.5 mg PO BID #60 tab 11/30/20 [Rx Confirmed 03/29/21 Last Taken 03/29/21 09:00] meloxicam 7.5 mg tablet 7.5 mg PO QDAY #180 tab 12/07/20 [Rx Confirmed 03/29/21 Last Taken 03/29/21 09:00] clopidogrel 75 mg tablet 75 mg PO DAILY #30 tab 02/01/21 [Rx Confirmed 03/29/21 Last Taken 03/29/21 09:00] magnesium sulfate 100 mg capsule 100 mg PO QDAY 02/01/21 [History Confirmed 03/29/21 Last Taken 03/29/21 09:00] hydroxyzine HCl 25 mg tablet 25 mg PO QHS #30 tab 02/18/21 [Rx Confirmed 03/29/21 Last Taken 03/28/21 21:00] ferrous sulfate 325 mg (65 mg iron) tablet 325 mg PO BID #60 tab 02/23/21 [Rx Confirmed 03/29/21 Last Taken 03/29/21 09:00] potassium chloride 20 mEq tablet,extended release 20 meq PO QDAY #90 tab 02/23/21 [Rx Confirmed 03/29/21 Last Taken 03/29/21 09:00] HYDROcodone/APAP 5/325MG [[place] 5/325Mg] 1 tab PO Q4HP #75 tab MDD 10 04/01/21 [Rx Last Taken Unknown] aspirin [Ecotrin Low Strength] 81 mg PO BID #60 tab 04/01/21 [Rx Last Taken Unknown] docusate sodium 100 mg PO BID #60 cap 04/01/21 [Rx Last Taken Unknown] sulfamethoxazole-trimethoprim [Bactrim DS] 1 tab PO BID #6 tab 04/05/21 [Rx Last Taken Unknown] tramadol 50 mg PO BID #20 tab 04/05/21 [Rx Last Taken Unknown] COURSE Hospital Course Hospital course: Pleasant 85-year-old presented to the emergency department for acute right hip pain. This patient was ambulating in the bathroom with assistance by a family member when her leg gave out and she ended up landing on her right hip, then falling backwards hitting the back of her head. There was no loss of consciousness. The patient recently had a austen-hip arthroplasty of this extremity done by Dr. Huber within in the last 6 weeks. 03/31: Hemoglobin 6.6. INR 1.2. Subjective not obtained due to clinical situations. 04/01: Hemoglobin 10.6 after 3 unit pRBC transfusion. Currently undergoing surgery by orthopedic surgeon Dr. Burden. 04/02: Status post ORIF and revisions of previous right hip hemiarthroplasty and placement of a long stem hemiarthroplasty by Dr. Atkins on 04/01. Currently denies any hip pain. Denies any fever or chills. Denies any shortness of breath. 04/03: Bower catheter removed. c/o Right hip pain. Denies any fever or chills. Denies any shortness of breath. 04/04: c/o cough. Denies chest pain. c/o general body weakness. Denies any right hip pain. Denies fever or chills or sweating. 04/05: UA suggestive of UTI. Mabel positive. No other complaints. 04/06: CoVID PCR also positive. airborne and contact isolation. Still tolerating room air. Pending discharge placement maybe to a different SNF that would take CoVID patient. 04/07: No major events overnight. 04/08: Discharged to swing bed status. Physical exam Head: Atraumatic, normal inspection. Eyes: normal appearance, no scleral icterus. Neck: full ROM Respiratory: no respiratory distress. Cardiovascular: normal rate and rhythm, S1, S2. GI/Abdominal: soft, nontender, no guarding. Extremities: full range of motion, nontender. Neurological: CN II-XII intact, intact motor, intact sensation. Psychiatric: normal mood. Skin: warm, normal color Discharge diagnosis: Right femur periprosthetic fracture Secondary discharge diagnosis: Mild COVID-19 Time Spent with Patient Time attestation: Total time spent providing and/or coordinating discharge services: EXAM Constitutional Vitals: Temp Pulse Resp BP Pulse Ox 97.5 F 85 18 142/78 94 04/08/21 12:00 04/08/21 12:00 04/08/21 12:00 04/08/21 12:00 04/08/21 12:00 Discharge Data Data Completed and Pending Labs on day of discharge: Labs from last 24 hours 04/08/21 04/08/21 08:04 08:04 WBC 5.9 RBC 2.93 L Hgb 9.3 L Hct 31.5 L MCV 107.5 H MCH 31.7 MCHC 29.5 L RDW 17.9 H Plt Count 192 MPV 12.5 H Neut % (Auto) 80.5 H Lymph % (Auto) 12.8 L [place] % (Auto) 5.7 Eos % (Auto) 0.7 Baso % (Auto) 0.3 Lymph # (Auto) 0.76 L [place] # (Auto) 0.34 Eos # (Auto) 0.04 Baso # (Auto) 0.02 Absolute Neutrophils 4.77 Vitamin B12 1036.0 Discharge Plan Patient/Caregiver Discharge Instructions Activity: ambulate only with your walker and as per physical therapy Diet: Regular Diet Instructions: Total Hip Replacement (DC) Activity Restrictions/Additional Instructions: Resume home diet as tolerated. Take all meals up in chair, sitting at 90 degrees, to prevent aspiration. Weight bearing as tolerated on operative side. Activity as tolerated. Use your ice packs as tolerated throughout the day. This and elevation will help with pain and swelling. You have the silver dressing covering your stapled surgical incision. Leave in place for 7 days then remove. Remove by Apr 11. If dressing becomes soiled (turns black), remove and use gauze 4x4 dressing and antimicrobial silver ointment ([id number]) and change daily. You may shower with dressing on, pat dry after shower. Your prescriptions are with your discharge information. To avoid constipation while taking any narcotic pain medication, take docusate sodium 2x daily to prevent constipation. Take Aspirin and Plavix as prescribed to prevent blood clots (see medication list). If you have any questions or concerns call your orthopedic surgeon before going to the emergency room. [facility] has a transition program manager physician 24 hours pe r day/7 days per week and can be reached at [phone]. Call for fevers above 100.5 or pain not controlled by medication. This discharge packet is provided to you to help keep you informed about your care. We want to ensure you get everything you need when you go home. You will also be receiving a call from us in a few days to follow up with you and see how you are doing since your discharge. This gives us a chance to listen to any concerns you maybe experiencing since you were discharged or any additional needs you may have, as well as providing us feedback on your care experience. We strive to always provide excellent care and thank you for your feedback and for choosing [facility]. Prescriptions: New docusate sodium 100 mg Capsule 100 mg PO BID Qty: 60 RF: 0 Hydrocodone/Apap 5/325mg [[place] 5/325mg] 1 tab PO Q4HP MDD 10 Qty: 75 RF: 0 aspirin [Ecotrin Low Strength] 81 mg tablet,delayed release (DR/EC) 81 mg PO BID Qty: 60 RF: 0 sulfamethoxazole-trimethoprim [Bactrim DS] 800-160 mg tablet 1 tab PO BID Qty: 6 RF: 0 Continued albuterol sulfate [ProAir HFA] 90 mcg/actuation HFA aerosol inhaler 2 puff INHALATION Q6H PRN (Reason: Dyspnea) Qty: 18 RF: 0 atenolol 50 mg tablet 50 mg PO DAILY Qty: 90 RF: 2 pregabalin 50 mg capsule 50 mg PO QDAY Qty: 30 RF: 2 furosemide [Lasix] 40 mg tablet 20 mg PO QAM RF: 0 gemfibrozil 600 mg tablet 600 mg PO BID Qty: 180 RF: 1 levothyroxine 50 mcg tablet 50 mcg PO QDAY Qty: 90 RF: 1 meloxicam 7.5 mg tablet 7.5 mg PO QDAY Qty: 180 RF: 2 clopidogrel 75 mg tablet 75 mg PO DAILY Qty: 30 RF: 2 hydroxyzine HCl 25 mg tablet 25 mg PO QHS Qty: 30 RF: 1 ferrous sulfate 325 mg (65 mg iron) tablet 325 mg PO BID Qty: 60 RF: 3 potassium chloride 20 mEq tablet extended release 20 meq PO QDAY Qty: 90 RF: 2 cyanocobalamin (vitamin B-12) 2,500 mg PO QDAY RF: 0 magnesium sulfate 100 mg capsule 100 mg PO QDAY RF: 0 melatonin 3 mg tablet 3 mg PO HS PRN (Reason: Sleep) RF: 0 fexofenadine [Chitra Allergy] 180 mg tablet 180 mg PO Q24H Qty: 30 RF: 4 meclizine 12.5 mg tablet 12.5 mg PO BID Qty: 60 RF: 1 ergocalciferol (vitamin D2) 400 UNIT tablet 400 unit PO DAILY RF: 0 omeprazole 20 MG capsule 20 mg PO BIDAC RF: 0 omega-3 fatty acids-fish oil 1 EACH capsule 1,000 mg PO DAILY RF: 0 tramadol 50 mg tablet 50 mg PO BID Qty: 20 RF: 0 Discontinued hydrocodone-acetaminophen 7.5-325 mg tablet 1 tab PO Q6H PRN (Reason: pain) Qty: 60 RF: 0 aspirin 81 mg capsule 81 mg PO BID Qty: 60 RF: 0 Other Ambulatory Orders: Physical Therapy DC - GREGORIO (Routine) Location: None Selected Ordered By: Gio Zamora Toilet Riser Discharge Order (ONCE) Location: None Selected Ordered By: Gio Zamora Walker (ONCE) Location: None Selected Ordered By: Gio aZmora Follow Up Plan Follow up with: Christian Burden MD [Physician] - 04/14/21 9:50 am ( ) Winsome Cordova ARNP [Primary Care Provider] - 04/19/21 10:00 am Patient Disposition: Xfer SNF Prognosis: Fair Rehab Potential: Fair I certify that the patient requires SNF services: Yes Overall status at discharge: patient is not back to baseline Discharge Orders: Discharge Order (Routine); Ordered 04/01/21 Ordered By: Gio Zamora Discharge Comment: Pt cleared by Ortho when clear by Hospitalist QUALITY VTE Deep Vein Thrombosis/Pulmonary Embolism Present on Admission: No
== END 2021-04-08 15:11 | disposition swing bed (61) | DRG 466 ==
LOC: ED 17:53 → MEDSUR 21:15
PROVIDERS: ADMIT Internal Medicine; ATTEND Internal Medicine